=== PATIENT | female | born 1995 | race Caucasian/White ===

== ENCOUNTER → 2020-06-13 10:57 | Outpatient (BNVA) | payer MEDICAID, SELFPAY | PROVIDERS: Visit Provider Advanced Practice Midwife | DX: Z30.42 Encounter for surveillance of injectable contraceptive (principal) | CPT/HCPCS: 96372; 99211 ==

== ENCOUNTER 2020-06-21 11:05 | Outpatient (REF) | payer MEDICAID, SELFPAY ==
[2020-06-21 16:29] LABS: CT PCR NOT DETECTED (Not Detect.); NG PCR NOT DETECTED (Not Detect.)
[2020-06-22 11:19] LABS: BV Int Neg Control Negative (Negative); BV Int Pos Control Positive (Positive)
== END 2020-06-21 11:06 | disposition home or self-care (01) ==
LOC: HO.LAB 11:05
PROVIDERS: Visit Provider Advanced Practice Midwife
DX: A60.00 Herpesviral infection of urogenital system, unspecified (principal); Z20.2 Contact with and (suspected) exposure to infections with a predominantly sexual mode of transmission; Z11.3 Encounter for screening for infections with a predominantly sexual mode of transmission
CPT/HCPCS: 87480; 87491; 87510; 87591; 87660; 99212

== ENCOUNTER 2020-09-11 14:22 | Emergency (ER) | payer MEDICAID, SELFPAY ==
[2020-09-11 14:56] VITALS: BP 104/73; PULSE 90; RESP 18; TEMP 37.3; O2SAT 97; BMI 21.2
--- NOTE | 2020-09-11 14:58 | ED.GENADULT ---
HPI - General Adult General Chief complaint: Abdominal Pain Stated complaint: abd pain, vomiting Time Seen by Provider: 09/11/20 14:57 Source: patient Mode of arrival: ambulatory Limitations: no limitations History of Present Illness HPI narrative: 25 y/o female presenting with nausea, vomiting and dirrahea since yesterday. She also reports mild, intermittent epigastric pain that comes and goes. No fever, chills, bloody BM's, recent abx, recent food bourne illness exposure. No COVID exposure. MD complaint: nausea and vomiting. Onset (ago): day(s) (2) Location: abdomen Radiation: non-radiation Severity: moderate Quality: burning and aching Pain Consistency: intermittent and now resolved Exacerbating factors: eating Associated symptoms: loss of appetite Treatments prior to arrival: none Related Data Home Medications Medication Instructions Recorded Confirmed medroxyprogesterone 150 mg/mL 150 mg IM [id number] 06/21/20 06/21/20 intramuscular suspension Previous Rx's Medication Instructions Recorded valacyclovir 1 gram tablet 1,000 mg PO DAILY #30 tab 06/21/20 Allergies Allergy/AdvReac Type Severity Reaction Status Date / Time No Known Allergies Allergy Verified 09/11/20 14:55 [No Known Allergies*] seasonal, in spring Allergy Unknown sneezing Uncoded 09/11/20 14:55 Review of Systems Review of Systems: Constitutional: No Fever, No Chills Cardiovascular: No Chest Pain, No SOB Respiratory: No Cough, No Sputum Gastrointestinal: + Nausea, + Vomiting, + Diarrhea, + abdominal Pain, No Hematochezia, No Melena Genitourinary: No Dysuria, No Urinary Frequency, No Hematuria Musculoskeletal: No joint pain, No Myalgias Skin: No Skin Lesions, No rash Neuro: No Weakness, No Numbness, No Dizziness, No Headache Heme/Lymph: No Bruising, No Lymphadenopathy Endocrine: No Polyuria, No Polydipsia PMFSH Past Medical History Attestation statement: The following information was validated with the patient. Medical History Depression Seasonal allergies Surgical History No history of previous surgery Family History Family History Mother Breast cyst Maternal Grandmother Breast cancer Maternal Aunt Uterine cancer Social History Social History (Updated 06/21/20 @ 12:02 by THEODORE Rainey) Alcohol intake: never Smoking Status: Never smoker Advance Directives: No Advance Directives Information Provided: No Gender identity: female Physical Exam Vital Signs: Vital Signs: Last Vital Signs Temp 99.2 F 09/11/20 14:56 Pulse 90 09/11/20 14:56 Resp 18 09/11/20 14:56 BP 104/73 09/11/20 14:56 Pulse Ox 97 09/11/20 14:56 Body Mass Index 21.2 Appearance: Alert. Oriented X3. No acute distress. Eyes: normal inspection ENT: Pharynx normal. Neck: Normal inspection. Neck supple. CVS: Normal heart rate and rhythm. Respiratory: No respiratory distress. Abdomen: Soft with mild epigastric tenderness, nontender. +BS x4 Skin: Skin warm and dry. Normal skin color. Normal skin turgor. No rashes. Neuro: Oriented X 3. Non-focal, normal gait Course Course Course Narrative: Rapid medial assessment upon arrival to the ER - 25 y/o female presenting with 2 days of intermittent 8/10 epigastric pain, N/V and watery diarrhea, thinks it may be food related. ?COVID exposure to a co-worker but no other symptoms. Unknown LMP, missed her Depo shot. VSS, appears well. No pain at this time. Will check labs, Upreg and UA. Management and dispo per primary provider in the ED. Reevaluation(s) Reevaluation #1: Patient eloped prior to having lab workup performed. Discharge Plan Discharge Clinical Impression: Gastroenteritis Patient Disposition: Elopement Prescriptions: No Action medroxyprogesterone [Depo-Provera] 150 mg/mL suspension 150 mg IM [id number] RF: 0 valacyclovir 1 gram tablet 1,000 mg PO DAILY Qty: 30 RF: 6
== END 2020-09-11 14:57 | disposition left against medical advice (07) ==
PROVIDERS: Emergency Provider Emergency Medicine
DX: K52.9 Noninfective gastroenteritis and colitis, unspecified (principal)
CPT/HCPCS: 99283

== ENCOUNTER 2020-11-10 09:47 | Outpatient (REF) | payer MEDICAID, SELFPAY ==
[2020-11-11 09:21] LABS: CT PCR NOT DETECTED (Not Detect.); NG PCR NOT DETECTED (Not Detect.)
[2020-11-11 11:30] LABS: BV Int Neg Control Negative (Negative); BV Int Pos Control Positive (Positive)
== END 2020-11-10 09:48 | disposition home or self-care (01) ==
LOC: HO.LAB 09:47
PROVIDERS: Visit Provider Advanced Practice Midwife
DX: Z01.419 Encounter for gynecological examination (general) (routine) without abnormal findings (principal); R10.2 Pelvic and perineal pain; A60.00 Herpesviral infection of urogenital system, unspecified; Z20.2 Contact with and (suspected) exposure to infections with a predominantly sexual mode of transmission; F32.9 Major depressive disorder, single episode, unspecified; J30.2 Other seasonal allergic rhinitis; Z79.899 Other long term (current) drug therapy
CPT/HCPCS: 87480; 87491; 87510; 87591; 87660; 88142

== ENCOUNTER 2020-11-29 13:58 | Outpatient (REF) | payer MEDICAID, SELFPAY ==
--- NOTE | ~2020-11-29 | US_ITS ---
EXAMINATION:US pelvic complete, US transvaginal CLINICAL INFORMATION: Reason for Exam R10.2 - Pelvic and perineal pain COMPARISON: No priors available. LMP: 2 weeks ago FINDINGS: UTERUS: The uterus is anteverted. Size: 7.3 x 3.9 x 4.8 cm. Uterine mass: Intramural uterine echogenic structure probably calcified tiny fibroid 2 x 3 x 2 mm. Cervix: There is nabothian cysts otherwise Grossly unremarkable. Endometrium: No ultrasound evidence of endometrial lesion. endometrial thickness measures 0.3 cm. ADNEXA: Normal Right ovary: Normal in size. There are multiple follicles. Left ovary: Normal in size. There are multiple follicles. Doppler exam: Normal Doppler flow identified in both ovaries. FREE FLUID: Trace amount of free fluid. OTHER FINDINGS: None US/US transvaginal IMPRESSION: Small 3 mm echogenic structure within the myometrium probably a tiny calcified fibroid or calcification probably of no clinical significance. Ultrasound otherwise is normal.
--- NOTE | ~2020-11-29 | US_ITS ---
EXAMINATION:US pelvic complete, US transvaginal CLINICAL INFORMATION: Reason for Exam R10.2 - Pelvic and perineal pain COMPARISON: No priors available. LMP: 2 weeks ago FINDINGS: UTERUS: The uterus is anteverted. Size: 7.3 x 3.9 x 4.8 cm. Uterine mass: Intramural uterine echogenic structure probably calcified tiny fibroid 2 x 3 x 2 mm. Cervix: There is nabothian cysts otherwise Grossly unremarkable. Endometrium: No ultrasound evidence of endometrial lesion. endometrial thickness measures 0.3 cm. ADNEXA: Normal Right ovary: Normal in size. There are multiple follicles. Left ovary: Normal in size. There are multiple follicles. Doppler exam: Normal Doppler flow identified in both ovaries. FREE FLUID: Trace amount of free fluid. OTHER FINDINGS: None US/US pelvic complete IMPRESSION: Small 3 mm echogenic structure within the myometrium probably a tiny calcified fibroid or calcification probably of no clinical significance. Ultrasound otherwise is normal.
== END 2020-11-29 13:59 | disposition home or self-care (01) ==
LOC: HO.US 13:58
PROVIDERS: Visit Provider Advanced Practice Midwife
DX: R10.2 Pelvic and perineal pain (principal); A60.00 Herpesviral infection of urogenital system, unspecified; Z20.2 Contact with and (suspected) exposure to infections with a predominantly sexual mode of transmission
CPT/HCPCS: 76830; 76856

== ENCOUNTER → 2020-12-06 10:11 | Outpatient (BNVA) | payer MEDICAID, SELFPAY | PROVIDERS: Visit Provider Advanced Practice Midwife ==

== ENCOUNTER → 2020-12-08 13:02 | Outpatient (BNVA) | payer MEDICAID, SELFPAY | PROVIDERS: Visit Provider Advanced Practice Midwife ==

== ENCOUNTER 2020-12-20 12:48 | Emergency (ER) | payer MEDICAID, SELFPAY ==
[2020-12-20 13:29] VITALS: BP 107/66; PULSE 73; RESP 16; TEMP 36.3; O2SAT 97; BMI 21.6
[2020-12-20 13:31] VITALS: BP 107/66; PULSE 71; RESP 16; TEMP 36.3; O2SAT 99; BMI 21.2
--- NOTE | 2020-12-20 14:29 | ED.EAR ---
HPI - Ear Problem General Chief complaint: Ear Problems Stated complaint: EAR ACHE Time Seen by Provider: 12/20/20 14:23 Source: patient Mode of arrival: ambulatory Limitations: no limitations History of Present Illness MD Complaint: ear pain and ear discharge Location: right ear Duration: constant Severity: moderate Relieving factors: nothing Exacerbating factors: nothing Discharge from ear: yes - clear Treatment prior to arrival: none Related Data Previous Rx's Medication Instructions Recorded levonorgestrel 1.5 mg tablet 1.5 mg PO ONCE PRN #1 tab 11/10/20 medroxyprogesterone 150 mg/mL 150 mg IM Q12W #1 ml 11/10/20 intramuscular suspension valacyclovir 1 gram tablet 1,000 mg PO DAILY #30 tab 11/10/20 ciprofloxacin HCl [Cipro] 500 mg PO BID 14 Days #28 tab 12/20/20 ciprofloxacin-hydrocortisone 3 drp OTIC (EARS) BID 7 Days #10 ml 12/20/20 [Cipro HC] Allergies Allergy/AdvReac Type Severity Reaction Status Date / Time No Known Allergies Allergy Verified 12/06/20 11:24 [No Known Allergies*] seasonal, in spring Allergy Unknown sneezing Uncoded 12/06/20 11:24 Review of Systems Review of Systems: Constitutional : No Weight loss, No Fever, No Chills, No Night Sweats, No Fatigue, No Malaise ENT/Mouth : + Ear pain/drainage, No Hearing loss, No Nasal Congestion, No Sinus Pain, No Hoarseness, No sore throat, No Rhinorrhea, No Swallowing Difficulty Eyes: No Eye Pain, No Swelling, No Redness, No Foreign Body, No Discharge, No Vision Changes Cardiovascular : No SOB, no Dyspnea on Exertion, No Orthopnea, No Edema, No extremity swelling, No Palpitations Respiratory : No Cough, No Sputum, No Wheezing, No Dyspnea Gastrointestinal : No Nausea, No Vomiting, No Diarrhea, No abdominal Pain, No Hematochezia, No Melena Genitourinary : No irregular bleeding, No Dysuria, No Urinary Frequency, No Hematuria, No Urinary Incontinence, No Urgency, No Flank Pain, No Urinary Flow Changes, No Hesitancy Musculoskeletal : No joint pain, No Myalgias, No Joint Swelling Skin : No Skin Lesions, No rash Neuro : No Weakness, No Numbness, No Paresthesias, No Loss of Consciousness, No Dizziness, No Headache Psych : No Anxiety/Panic, No Depression, No SI/HI/AH/VH Heme/Lymph: No Bruising, No Bleeding,No Lymphadenopathy Endocrine : No Polyuria, No Polydipsia, No Temperature Intolerance Yes all other systems are reviewed and are negative [facility] Past Medical History Attestation statement: The following information was validated with the patient. Medical History Depression Seasonal allergies Surgical History No history of previous surgery Family History Family History Mother Breast cyst Maternal Grandmother Breast cancer Maternal Aunt Uterine cancer Social History Social History Alcohol intake: never Smoking Status: Never smoker Advance Directives: Yes Advance Directives Information Provided: Yes Advance Directives on File: No Gender identity: female Physical Exam Vital Signs: Vital Signs: Last Vital Signs Temp 97.4 F 12/20/20 13:31 Pulse 71 12/20/20 13:31 Resp 16 12/20/20 13:31 BP 107/66 12/20/20 13:31 Pulse Ox 99 12/20/20 13:31 Body Mass Index 21.2 vital signs have been reviewed as normal and appeared to be correct. Blood pressure normal. Heart rate normal. Respiration rate normal. Temperature normal. Oxygen saturation normal. Appearance: Alert. Oriented X3. No acute distress. Head: Normal external exam. Normocephalic. Atraumatic. No Love signs noted. No raccoon eyes noted Eyes: PERRLA. EOMI. Conjunctiva and sclera normal. Eyelids normal. ENT: Left external ear canal and tympanic membrane within normal limits. Right tympanic membrane erythematous and bulging consistent with otitis media. Patient with tenderness to palpation to the tragus and the pinna of the right ear canal. Pharynx normal. Uvula midline. Moist mucous membranes. No trismus noted. No drooling noted. No muffled voice noted. Neck: Normal inspection. Neck supple. FROM. No adenopathy. Thyroid Normal. No meningeal signs. No neck mass noted. CVS: Normal heart rate and rhythm. Heart sound normal. No murmurs noted. Pulses normal throughout. Respiratory: No respiratory distress. Painless inspiration. Breath sounds normal. No wheezes/rales/rhonchi noted. Chest nontender. No accessory muscle usage noted or decreased air movement noted. Abdomen: Soft and nontender. Bowel sounds normal in all 4 quadrants. No distention noted. No organomegaly noted. No visible injury noted. Back: No CVA tenderness. Full range of motion noted. Skin: Skin warm and dry. Normal skin color. Normal skin turgor. No rashes/lesions/lacerations noted. Extremities: No lower extremity edema. Extremities exhibit normal range of motion. Extremities nontender. Neuro: Oriented X 3. No motor deficit. No sensory deficit. Reflexes normal. MDM - Ear Medical Records Attestation: I reviewed the patient's medical records. Discharge Plan Discharge Clinical Impression: Otitis media, Otitis externa Patient Disposition: Home, Self-Care Instructions: Serous Otitis Media (ED), Otitis Externa (ED) Prescriptions: New ciprofloxacin HCl [Cipro] 500 mg tablet 500 mg PO BID 14 Days Qty: 28 RF: 0 Cipro HC 0.2-1 % drops,suspension 3 drp otic (ears) BID 7 Days Qty: 10 RF: 0 No Action medroxyprogesterone [Depo-Provera] 150 mg/mL suspension 150 mg IM Q12W Qty: 1 RF: 6 levonorgestrel [Plan B One-Step] 1.5 mg tablet 1.5 mg PO ONCE PRN (Reason: after unprptected intercourse) Qty: 1 RF: 5 valacyclovir 1 gram tablet 1,000 mg PO DAILY Qty: 30 RF: 6 Referrals: Physician,None [Primary Care Provider] - 2 days (your pcp) Stand Alone Forms: Work/School Release Print Language: Romanian
== END 2020-12-20 14:50 | disposition home or self-care (01) ==
PROVIDERS: Emergency Provider Emergency Medicine Emergency Medical Services
DX: H66.91 Otitis media, unspecified, right ear (principal); H60.91 Unspecified otitis externa, right ear; H92.01 Otalgia, right ear
CPT/HCPCS: 99283

== ENCOUNTER 2021-01-30 08:04 | Outpatient (REF) | payer MEDICAID, SELFPAY ==
[2021-01-30 14:03] LABS: CT PCR NOT DETECTED (Not Detect.); NG PCR NOT DETECTED (Not Detect.)
[2021-01-31 09:10] LABS: BV Int Neg Control Negative (Negative); BV Int Pos Control Positive (Positive)
== END 2021-01-30 08:05 | disposition home or self-care (01) ==
LOC: HO.LAB 08:04
PROVIDERS: Visit Provider Advanced Practice Midwife
DX: N76.0 Acute vaginitis (principal); Z20.2 Contact with and (suspected) exposure to infections with a predominantly sexual mode of transmission
CPT/HCPCS: 81025; 87480; 87491; 87510; 87591; 87660; 99212

== ENCOUNTER → 2021-05-02 11:09 | Outpatient (BNVA) | payer MEDICAID, SELFPAY | PROVIDERS: Visit Provider Advanced Practice Midwife | DX: Z32.02 Encounter for pregnancy test, result negative (principal); Z30.09 Encounter for other general counseling and advice on contraception; N91.2 Amenorrhea, unspecified | CPT/HCPCS: 81025; 99212 ==

== ENCOUNTER → 2021-05-16 10:10 | Outpatient (BNVA) | payer MEDICAID, SELFPAY | PROVIDERS: Visit Provider Advanced Practice Midwife | DX: Z30.09 Encounter for other general counseling and advice on contraception (principal); Z30.9 Encounter for contraceptive management, unspecified; Z32.02 Encounter for pregnancy test, result negative | CPT/HCPCS: 81025; 96372; 99211 ==

== ENCOUNTER → 2021-08-08 11:05 | Outpatient (BNVA) | payer MEDICAID, SELFPAY | PROVIDERS: Visit Provider Advanced Practice Midwife | DX: Z30.9 Encounter for contraceptive management, unspecified (principal) | CPT/HCPCS: 96372; 99211 ==

== ENCOUNTER → 2021-10-24 13:16 | Outpatient (BNVA) | payer MEDICAID, SELFPAY | PROVIDERS: Visit Provider Advanced Practice Midwife | DX: Z30.42 Encounter for surveillance of injectable contraceptive (principal) | CPT/HCPCS: 96372; 99211 ==

== ENCOUNTER 2021-10-25 11:22 | Outpatient (REF) | payer MEDICAID, SELFPAY ==
[2021-10-25 15:32] LABS: CT PCR NOT DETECTED (Not Detect.); NG PCR NOT DETECTED (Not Detect.)
[2021-10-26 09:42] LABS: BV Int Neg Control Negative (Negative); BV Int Pos Control Positive (Positive)
== END 2021-10-25 11:23 | disposition home or self-care (01) ==
LOC: HO.LAB 11:22
PROVIDERS: Visit Provider Obstetrics & Gynecology
DX: N76.0 Acute vaginitis (principal); B96.89 Other specified bacterial agents as the cause of diseases classified elsewhere
CPT/HCPCS: 87480; 87491; 87510; 87591; 87660; 99212

== ENCOUNTER 2021-11-02 09:26 | Emergency (ER) | payer MEDICAID, SELFPAY ==
[2021-11-02 09:30] VITALS: BP 122/78; PULSE 90; O2SAT 98
[2021-11-02 09:35] VITALS: BP 100/72; PULSE 95; RESP 17; TEMP 36.7; O2SAT 97; BMI 23.8
--- NOTE | 2021-11-02 10:24 | ECG_ITS ---
Test Reason : anxiety Blood Pressure : / mmHG Vent. Rate : 075 BPM Atrial Rate : 075 BPM P-R Int : 174 ms QRS Dur : 090 ms QT Int : 358 ms P-R-T Axes : 062 052 043 degrees QTc Int : 399 ms Normal sinus rhythm Normal ECG When compared with ECG of 15-JAN-2019 20:54, No significant change was found Referred By: William Hill Electronically Signed By:DI MANCILLA MD
--- NOTE | 2021-11-02 10:25 | ED_ITS ---
HPI - General Adult General Chief complaint: Anxiety Stated complaint: shortness of breath Time Seen by Provider: 11/02/21 10:20 History of Present Illness HPI narrative: Patient complains of a resolved episode of feeling faint, tingling in fingers and feet, who breathing deeply and feeling chest tightness while at a meeting at work She did not faint she never had chest pain she is completely back to normal now and has no dizziness or shortness of breath She has had similar episodes in past related to anxiety and she does say that she is frequently anxious Related Data Previous Rx's Medication Instructions Recorded medroxyprogesterone 150 mg/mL 150 mg IM Q12W #1 ml 11/10/20 intramuscular suspension (Depo-Provera) valacyclovir 1 gram tablet 1,000 mg PO DAILY #30 tab 11/10/20 metronidazole 500 mg tablet 500 mg PO BID 7 Days #14 tab 10/25/21 Allergies Allergy/AdvReac Type Severity Reaction Status Date / Time seasonal, in spring Allergy Unknown sneezing Uncoded 10/25/21 11:32 Review of Systems Review of Systems: Positive for resolved episode of hyperventilation, tingling in fingers and toes, feeling faint and dizzy Negatives are no fever no chills no fainting no headache no stiff neck no chest pain no abdominal pain no nausea or vomiting no diarrhea no skin rash no loss of muscle strength no loss of sensation Yes all other systems are reviewed and are negative PMFSH Past Medical History Source: nursing notes reviewed Medical History Depression Seasonal allergies Surgical History No history of previous surgery Family History Family History Mother Breast cyst Maternal Grandmother Breast cancer Maternal Aunt Uterine cancer Social History Social History Alcohol intake: never Advance Directives: No Advance Directives Information Provided: No Patient : No Gender identity: Female Physical Exam ED Vital Signs: Vital Signs - 24 hr 11/02/21 09:35 11/02/21 11:04 Temperature 98.0 F Pulse Rate 95 105 H Respiratory Rate 17 17 Blood Pressure 100/72 Pulse Oximetry 97 98 BMI result Body Mass Index 23.8 General appearance no distress comfortable relaxed cooperative Head is normocephalic atraumatic Eyes pupils equal round reactive to light Extraocular motions are intact The pharynx is clear mucous membranes moist The neck is supple Chest clear to auscultation bilateral Heart no murmur Abdomen soft nontender Extremities full range of motion x4 no leg swelling no calf tenderness Neuro no gross deficits, gait and balance are normal interaction both compreh ension expression is clear and normal Course Course Course Narrative: EKG was done which which showed a normal sinus rhythm no acute ST changes no ischemic changes no arrhythmia, intervals were normal and QT was no test was negative Well-appearing patient who is now asymptomatic but has periodic anxiety , but this her 1st episode of hyperventilation As this was a 1 time episode and anxiety is not impairing her quality of life and she is not suicidal or depressed I did not start any medication, I did advise her if she gets another hyperventilation episodes use paper bag and she will follow with her doctor Medical Decision Making Lab Data Labs: Lab Results 11/02/21 Range/Units 10:34 Urine Test NEGATIVE (NEGATIVE) Discharge Plan Discharge Clinical Impression: Anxiety, Hyperventilation Patient Disposition: Home, Self-Care Instructions: Hyperventilation (ED) Additional Instructions: Your EKG was normal, test was negative The episode was most likely an episode of hyperventilation from an anxiety attack If it happens again try breathing into a paper bag which often times helps control the symptoms of hyperventilation if you ever feel dizzy when her standing up it is always a good idea to lay down and let the blood go back to her head Return any time any worse condition or any concerns Follow with primary doctor Prescriptions: No Action medroxyprogesterone [Depo-Provera] 150 mg/mL suspension 150 mg IM Q12W Qty: 1 6RF valacyclovir 1 gram tablet 1,000 mg PO DAILY Qty: 30 6RF metronidazole 500 mg tablet 500 mg PO BID 7 Days Qty: 14 0RF Stand Alone Forms: Work/School Release Interventions: ED Discharge Assessment Last Done: 11/02/21 11:31 Discharge Date/Time: 11/02/21 11:37
[2021-11-02 10:57] LABS: UPreg QC Valid YES; Urine Pregnancy NEGATIVE (NEGATIVE)
[2021-11-02 11:04] VITALS: PULSE 105; RESP 17; O2SAT 98
== END 2021-11-02 11:37 | disposition home or self-care (01) ==
PROVIDERS: Physician Assistant Medical; Emergency Provider Emergency Medicine; PCP Nurse Practitioner Primary Care
DX: F41.9 Anxiety disorder, unspecified (principal); R06.4 Hyperventilation
CPT/HCPCS: 81025; 93005; 99283; 99284

== ENCOUNTER → 2022-01-18 11:06 | Outpatient (BNVA) | payer MEDICAID, SELFPAY | PROVIDERS: Visit Provider Obstetrics & Gynecology | DX: Z30.42 Encounter for surveillance of injectable contraceptive (principal) | CPT/HCPCS: 96372; 99211 ==

== ENCOUNTER 2022-02-28 08:39 | Outpatient (REF) | payer MEDICAID, SELFPAY ==
[2022-02-28 14:42] LABS: CT PCR NOT DETECTED (Not Detect.); NG PCR NOT DETECTED (Not Detect.)
== END 2022-02-28 08:40 | disposition home or self-care (01) ==
LOC: HO.LAB 08:39
PROVIDERS: Visit Provider Obstetrics & Gynecology
DX: Z11.3 Encounter for screening for infections with a predominantly sexual mode of transmission (principal)
CPT/HCPCS: 87491; 87591

== ENCOUNTER → 2022-04-12 12:35 | Outpatient (BNVA) | payer MEDICAID, SELFPAY | PROVIDERS: Visit Provider Obstetrics & Gynecology | DX: Z30.9 Encounter for contraceptive management, unspecified (principal) | CPT/HCPCS: 96372; 99211 ==

== ENCOUNTER → 2022-06-28 13:14 | Outpatient (BNVA) | payer MEDICAID, SELFPAY | PROVIDERS: Visit Provider Obstetrics & Gynecology | DX: Z30.42 Encounter for surveillance of injectable contraceptive (principal) | CPT/HCPCS: 96372 ==

== ENCOUNTER → 2022-07-31 13:26 | Outpatient (BNVA) | payer MEDICAID, SELFPAY | PROVIDERS: Visit Provider Obstetrics & Gynecology | DX: Z30.09 Encounter for other general counseling and advice on contraception (principal) | CPT/HCPCS: 99212 ==

== ENCOUNTER → 2022-09-24 12:57 | Outpatient (BNVA) | payer MEDICAID, SELFPAY | PROVIDERS: Visit Provider Advanced Practice Midwife | DX: Z30.42 Encounter for surveillance of injectable contraceptive (principal) | CPT/HCPCS: 96372; 99211 ==

== ENCOUNTER 2022-11-08 09:59 | Outpatient (REF) | payer MEDICAID, SELFPAY ==
[2022-11-08 17:00] LABS: CT PCR NOT DETECTED (Not Detect.); NG PCR NOT DETECTED (Not Detect.)
[2022-11-09 12:53] LABS: BV Int Neg Control Negative (Negative); BV Int Pos Control Positive (Positive)
== END 2022-11-08 10:00 | disposition home or self-care (01) ==
LOC: HO.LNP 09:59
PROVIDERS: Visit Provider Advanced Practice Midwife
DX: N76.0 Acute vaginitis (principal); B96.89 Other specified bacterial agents as the cause of diseases classified elsewhere; R10.2 Pelvic and perineal pain; Z20.2 Contact with and (suspected) exposure to infections with a predominantly sexual mode of transmission; N94.10 Unspecified dyspareunia
CPT/HCPCS: 0353U; 87480; 87510; 87660; 99212

== ENCOUNTER → 2022-12-10 12:20 | Outpatient (BNVA) | payer MEDICAID, SELFPAY | PROVIDERS: Visit Provider Advanced Practice Midwife | DX: Z30.42 Encounter for surveillance of injectable contraceptive (principal) | CPT/HCPCS: 96372; 99211 ==

== ENCOUNTER 2023-03-03 12:33 | Outpatient (AMB) | payer MEDICAID, SELFPAY ==
[2023-03-03 12:52] VITALS: BMI 25.2
--- NOTE | 2023-03-03 12:52 | AM.OFFVISNUR ---
Intake Vital Signs 03/03/23 12:52 Height 5 ft 3 in Weight 64.467 kg BMI 25.2 Intake Visit Reasons: DEPO Allergies seasonal, in spring Allergy (Unknown, Uncoded 11/08/22 10:14) sneezing Nursing Note tony is here today for her scheduled Depo_provera inj. She has her annual scheduled for tomorrow. Pt denies any problems. Follow up in 12 wks for Depo-Provera inj. Office Procedures Depo Questionnaire If YES to any of the following questions, please consult a provider. Date of last injection: 12/10/22 Date of last gynecology exam: 02/28/22 Menstrual pattern since last injection has been: Not Applicable Irregular bleeding?: Not Applicable Breast lumps or other breast changes?: No Changes in weight or appetite?: No Depression or changes in mood?: No Abnormal hair growth or loss?: No Skin problems (rash, acne, discoloration)?: No Pain at the injection site?: No Headaches?: No Nervousness?: No Abdominal pain or cramping?: No Dizziness or nausea?: No Fatigue or weakness?: No Decrease in sexual drive?: No Chest pain or shortness of breath?: No Swelling in arms or legs?: No Form completed by?: Faiza bearden LPN Office Meds Depo-Provera Performing Provider: Brianne Samson CNM Administered by: Meghna Bearden LPN on 03/03/23 12:53 Dose Route Admin Location Lot Number Expiration Date NDC Potato Inspector 150 mg IM left deltoid [id number] 05/24/25 52569-091-53 [facility] Coding Level of Care Code Established Pt Est Pt Level 1 (59998) Patient Type Established History Problem Focused Exam Problem Focused Medical Decision Making Straight Forward Diagnoses Time Spent (min) 15 Assessment & Plan Assessment & Plan Orders: Orders AMB Medroxyprogesterone Injection Patient Supplied Today Z30.42 - Encounter for surveillance of injectable contraceptive
== END 2023-03-03 12:51 | disposition home or self-care (01) ==
LOC: HO.HWS 12:33
PROVIDERS: Visit Provider Advanced Practice Midwife
DX: Z30.42 Encounter for surveillance of injectable contraceptive (principal)
CPT/HCPCS: J1050

== ENCOUNTER → 2023-03-03 12:33 | Outpatient (BNVA) | payer MEDICAID, SELFPAY | PROVIDERS: Visit Provider Advanced Practice Midwife | DX: Z30.42 Encounter for surveillance of injectable contraceptive (principal) | CPT/HCPCS: 96372; 99211 ==

== ENCOUNTER 2023-03-04 07:56 | Outpatient (AMB) | payer MEDICAID, SELFPAY ==
--- NOTE | 2023-03-04 08:17 | A.OFFVIS_ITS ---
Intake Vital Signs 03/04/23 08:20 Height 5 ft 3 in Weight 140 lb BMI 24.8 BP 108/68 Intake Visit Reasons: Annual Intake Note: c/o vaginitis Air Quality Instrument Specialist Required: No Information Interpreted: non-clinical & clinical Neck Band Maker: Neck Band Maker Present Accompanied by: Self / Same As Patient Allergies seasonal, in spring Allergy (Unknown, Uncoded 03/04/23 08:21) sneezing Is last menstrual period known: No HPI HPI Comments History of Present Illness Details Presenting for annual exam. No complaints. Last Pap was negative in 11/12 [facility] Medical History Depression Seasonal allergies Surgical History No history of previous surgery Family History Mother Breast cyst Maternal Grandmother Breast cancer Maternal Aunt Uterine cancer Social History Household Members: Children Housing: Apartment Alcohol intake: never Patient Tobacco Use Status: Never used Tobacco Current occupational status: employed Current occupation: [employer] Sexually active: Yes Sexual orientation: Straight/Heterosexual Gender identity: Female Female Reproductive History Menstrual Age of Menarche: 15 control method: progesterone injection Total pregnancies: 2 Full term: 2 Number of Living Children: 2 Date of last pap smear: 11/13/20 Review of Systems Const All systems reviewed & are unremarkable except as noted in HPI and below Card Reports as per HPI Resp Reports as per HPI GI Reports as per HPI and Reports no additional complaints Reports as per HPI Physical Exam Vital Signs: Last Vital Signs BP 108/68 03/04/23 08:20 BMI result Body Mass Index 24.8 Const General: cooperative, healthy appearing and comfortable Chest Chest palpation & inspection: normal inspection of the chest and normal palpation of entire chest wall Breast/axilla inspection: normal inspection of the breasts and normal inspection of the axillae Breast/axilla palpation: normal palpation of the breasts, normal palpation of the axillae and no axillary lymphadenopathy Resp Effort & Inspection: normal respiratory effort Auscultation: clear to auscultation bilaterally Percussion: percussion normal Cardio Palpation: normal PMI Rate: regular rate Rhythm: regular rhythm Heart sounds: no murmurs and no rubs Peripheral pulses: Peripheral pulses 2+ throughout GI Inspection: Yes normal to inspection Palpation (GI): Soft to palpation, nontender, no guarding, not rigid and No hepatosplenomegaly present Percussion: Yes normal to percussion Auscultation: normal bowel sounds Rectal Exam - Female: deferred General: Yes bladder normal to palpation External Female Exam: No lesion Speculum Exam - Vagina: normal appearance of the vagina, normal palpation, normal vaginal discharge and not erythematous Speculum Exam - Cervix: normal appearance of the cervix and normal palpation Bimanual exam- vagina & uterus: normal bimanual exam, normal palpation, uterine size normal, bladder normal to palpation, consistency normal and normal palpation Bimanual Exam- Adnexa, other: normal adnexae, no masses and no tenderness Assessment & Plan Assessment & Plan (1) Well woman exam with routine gynecological exam: Code(s): Z01.419 - Encounter for gynecological examination (general) (routine) without abnormal findings Plan: Pap smear not indicated this year. Counseled the patient about the recommended dietary allowance of 1000 mg of Calcium & 600 IU of vitamin D. The patient was instructed to perform monthly self-breast exams , to call for any changes in menstrual patterns and to schedule an annual exam in a year; all questions answered and the patient verbalized understanding. Coding Level of Care Code Est Pt Prev Care 18-39y(64434) Diagnoses Well woman exam with routine gynecological exam Z01.419
[2023-03-04 08:20] VITALS: BP 108/68; BMI 24.8
== END 2023-03-04 08:32 | disposition home or self-care (01) ==
LOC: HO.HWS 07:56
PROVIDERS: Visit Provider Obstetrics & Gynecology
DX: Z01.419 Encounter for gynecological examination (general) (routine) without abnormal findings (principal)
CPT/HCPCS: 99395

== ENCOUNTER → 2023-03-04 07:56 | Outpatient (BNVA) | payer MEDICAID, SELFPAY | PROVIDERS: Visit Provider Obstetrics & Gynecology ==

== ENCOUNTER 2023-03-06 19:25 | Outpatient (REF) | payer MEDICAID, SELFPAY ==
[2023-03-06 20:12] LABS: Influenza A PCR NEGATIVE (Negative); Influenza B PCR NEGATIVE (Negative); Resp Syncy Virus RNA Qual PCR NEGATIVE (Negative); SARS COV2 PCR INHOUSE NEGATIVE (Negative)
== END 2023-03-06 19:26 | disposition home or self-care (01) ==
LOC: HO.HHCLNP 19:25
PROVIDERS: Visit Provider Family Medicine
DX: J06.9 Acute upper respiratory infection, unspecified (principal); Z20.822 Contact with and (suspected) exposure to COVID-19
CPT/HCPCS: 0241U; 87070

== ENCOUNTER 2023-05-02 12:40 | Outpatient (AMB) | payer MEDICAID, SELFPAY ==
[2023-05-02 12:49] VITALS: BP 120/66; BMI 25.5
--- NOTE | 2023-05-02 12:49 | A.OFFVIS_ITS ---
Intake Vital Signs 3 05/02/23 12:49 Height 5 ft 3 in Weight 144 lb BMI 25.5 BP 120/66 Intake Visit Reasons: Vaginal Cysts Intake Note: cyst on upper labia Machine Cementer Required: No Information Interpreted: non-clinical & clinical Distribution Collection Operator: Distribution Collection Operator Present (Malka) Accompanied by: Daughter Allergies seasonal, in spring Allergy (Unknown, Uncoded 05/02/23 12:52) sneezing Medication List - Last Reconciled 05/02/23 by Jaqueline Montez CNM medroxyprogesterone (Depo-Provera) 150 mg IM Q12W 12 weeks Is last menstrual period known: No (Depo) Post menopausal: No HPI Vaginal Cysts 2 HPI0 Details Patient is here because she has a recurring problem with a follicular cyst and her mons pubis but the 1 of most concern is she has of the inflamed clitoris. It is not where there is a hair follicle. She had this problem when she was 16 years old and at that time it did need to be lanced. Since then she has had numbness at that plate site on her clitoris and diminished sensation although it the swelling is painful. It had not occurred for a long time until she was on vacation in [place] about a month ago and it became so swollen and painful that she had to buy long skirts to wear and not wear underwear and pants it got to be about golf ball-sized by her description and when she put warm soaks on it finally it popped and got 100% better this 1 just started recently and she is afraid it is going to get as bad. She said that she was told that if it ever happened again she would have to have it lanced again so she wanted to get a right on it. 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 Patient has other scars from previously healed folliculitis lesions. Patient says she does not shave generally but she shaved before her trip to [place] and regretted it immediately. Her clitoris is swollen and appears very slightly inflamed more towards the right side of the clitoris than central or left there is evidence of a poor that may have opened up previously there is no active exudate it is not extremely tender but it is slightly tender to the patient it is swollen with an oval- shaped approximately 1/2 by 1 cm. Female genitals images: 2 1. Folliculitis on mons pubis folliculitis on mons pubis 2. Cystic swelling on clitoris, slightly inflamed. Assessment & Plan Assessment & Plan (1) Folliculitis: Code(s): L73.9 - Follicular disorder, unspecified (2) Inflamed sebaceous cyst: Code(s): L72.3 - Sebaceous cyst (3) Clitoral irritation: Code(s): N90.89 - Other specified noninflammatory disorders of vulva and perineum Plan Discussed that for both areas I would recommend using warm soaks or warm washcloth reapplied to area -Just refresh the warm water. I showed her the clitoral lesion with the mirror we will both looked very carefully to wear it may have popped before but I do not and recommend squeezing it and night this point it would not benefit from any kind of Ronceverte or invasive action. It may come to that but it would be much better to try and pre vent that situation because the clitoris is such a delicate structure with nervous ennervation and blood supply as well that. gross Lancing would be more traumatic to the delicate tissue structure than would be figueroa. I recommend repeating the warm soaks as much as is possible in the next couple of days to allow it to come to its own head. Avoid squeezing.. If it becomes reddened hot much more swollen and evidence is infection she may need to seek urgent care and may need antibiotics I would not recommend them at this point. She has an appointment next month for her Depo-Provera and pascual believes she has sufficient refills. Coding Level of Care Code Est Pt Level 3 (97289) Diagnoses Folliculitis L73.9 Inflamed sebaceous cyst L72.3 Clitoral irritation N90.89
== END 2023-05-02 13:36 | disposition home or self-care (01) ==
PROVIDERS: Visit Provider Advanced Practice Midwife
DX: L73.9 Follicular disorder, unspecified (principal); L72.3 Sebaceous cyst; N90.89 Other specified noninflammatory disorders of vulva and perineum
CPT/HCPCS: 99213

== ENCOUNTER → 2023-05-02 12:40 | Outpatient (BNVA) | payer MEDICAID, SELFPAY | PROVIDERS: Visit Provider Advanced Practice Midwife | DX: L73.9 Follicular disorder, unspecified (principal); L72.3 Sebaceous cyst; N90.89 Other specified noninflammatory disorders of vulva and perineum | CPT/HCPCS: 99212 ==

== ENCOUNTER 2023-05-05 09:10 | Outpatient (REF) | payer MEDICAID, SELFPAY ==
[2023-05-07 21:49] LABS: TS Negative Control Passed; TS Panel A 0; TS Panel B 2; TS Positive Control Passed; TSpotTB Negative (Negative)
== END 2023-05-05 09:11 | disposition home or self-care (01) ==
LOC: HO.HHCL 09:10
PROVIDERS: Visit Provider Nurse Practitioner Primary Care
DX: Z11.1 Encounter for screening for respiratory tuberculosis (principal)
CPT/HCPCS: 36415; 86481

== ENCOUNTER 2023-05-29 15:08 | Outpatient (AMB) | payer MEDICAID, SELFPAY ==
[2023-05-29 15:26] VITALS: BMI 25.7
--- NOTE | 2023-05-29 15:26 | AM.OFFVISNUR ---
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 No c/o. Pt tolerated injection well. She will schedule her next injection for 12 weeks out. Pt verbalizes understanding and agrees with plan. No further questions. Office Procedures Depo Questionnaire If YES to any of the following questions, please consult a provider. Date of last injection: 03/03/23 Date of last gynecology exam: 02/28/22 Menstrual pattern since last injection has been: Not Applicable Irregular bleeding?: No Breast lumps or other breast changes?: No Changes in weight or appetite?: No Depression or changes in mood?: No Abnormal hair growth or loss?: No Skin problems (rash, acne, discoloration)?: No Pain at the injection site?: No Headaches?: No Nervousness?: No Abdominal pain or cramping?: No Dizziness or nausea?: No Fatigue or weakness?: No Decrease in sexual drive?: No Chest pain or shortness of breath?: No Swelling in arms or legs?: No Form completed by?: Omaira Vines RN Office Meds Depo-Provera 150 mg/mL intramuscular syringe Performing Provider: Altaf Mckenzie MD Performing Location: [facility] [place] [facility] Administered by: Omaira Vines on 05/29/23 15:28 Dose Route Admin Location Dispensed Lot Number Expiration Date [facility] Cooler Deliverer 150 mg IM left deltoid 1 mL [id number] 01/22/25 03771-398-03 [facility] Coding Level of Care Code Established Pt Est Pt Level 1 (37451) Patient Type Established History Problem Focused Medical Decision Making Straight Forward Time Spent (min) 12 Assessment & Plan Assessment & Plan Orders: Orders AMB Medroxyprogesterone Injection Patient Supplied Today Z30.42 - Encounter for surveillance of injectable contraceptive
== END 2023-05-29 15:27 | disposition home or self-care (01) ==
PROVIDERS: Visit Provider Obstetrics & Gynecology
DX: Z30.42 Encounter for surveillance of injectable contraceptive (principal)

== ENCOUNTER → 2023-05-29 15:08 | Outpatient (BNVA) | payer MEDICAID, SELFPAY | PROVIDERS: Visit Provider Obstetrics & Gynecology | DX: Z30.42 Encounter for surveillance of injectable contraceptive (principal) | CPT/HCPCS: 96372; 99211; J1050 ==

== ENCOUNTER 2023-08-14 09:42 | Outpatient (REF) | payer MEDICAID, SELFPAY ==
[2023-08-14 12:06] LABS: Rheumatoid Factor < 13.0 IU/mL (<15.0)
[2023-08-14 12:35] LABS: Alanine Aminotransferase 9 U/L (0-31); Albumin Level 4.2 g/dL (3.5-5.0); Alkaline Phosphatase 83 U/L (39-117); Anion Gap 14 (12-20); Aspartate Amino Transferase 13 U/L (5-31); Bilirubin Total 0.2 mg/dL (0.0-1.0); Blood Urea Nitrogen 12 mg/dL (9-16); C Reactive Protein 1.25 mg/dL (< or = 0.50); Calcium 9.5 mg/dL (8.4-10.2); Carbon Dioxide 22 mmol/L (22-29); Chloride 108 mmol/L (96-108); Estimated Glomerular Filt Rate > 60; Glucose Random 102 mg/dL (60-115); Potassium 3.6 mmol/L (3.3-5.1); Sodium 140 mmol/L (135-145); Total Protein 7.7 g/dL (6.5-8.0)
[2023-08-14 12:37] LABS: TSH reflex Free T4 1.61 uIU/mL (0.32-4.0); Vitamin D 25-OH Total 21.8 ng/mL (>30)
[2023-08-14 12:40] LABS: HBS Num1 0.73 mIU/mL (0-7.99); HBc Num1 0.12 S/CO (0.00-0.79); HBsAGNum1 0.33 S/CO (0.00-0.99); Hepatitis A Antibody IgM 0.15 Index (0-0.79); Hepatitis B Core Antibody Nonreactive (Nonreactive); Hepatitis B Surface Antigen Negative (Negative); ~HepC Num1 0.09 S/CO (0.00-0.79); ~Hepatitis A Antibody IgM Nonreactive (Nonreactive); ~Hepatitis B Surface Antibody NONREACTIVE (Nonreactive); ~Hepatitis C Antibody Nonreactive (Nonreactive)
[2023-08-14 13:01] LABS: Erythrocyte Sedimentation Rate 57 MM/HR (0-20)
[2023-08-15 09:49] LABS: Rubella IgG Antibody 1.47 Index; Rubeola IgG (Measles) <13.50 AU/mL
[2023-08-19 15:23] LABS: Anti Nuclear Antibody Screen NEGATIVE (NEGATIVE)
== END 2023-08-14 09:43 | disposition home or self-care (01) ==
LOC: HO.HHCL 09:42
PROVIDERS: Visit Provider Internal Medicine
DX: Z00.00 Encounter for general adult medical examination without abnormal findings (principal); M25.541 Pain in joints of right hand; M25.542 Pain in joints of left hand
CPT/HCPCS: 36415; 80053; 82306; 84443; 85652; 86038; 86140; 86431; 86704; 86706; 86709; 86735; 86762; 86765; 86803; 87340

== ENCOUNTER 2023-08-22 14:48 | Outpatient (AMB) | payer MEDICAID, SELFPAY ==
[2023-08-22 15:12] VITALS: BMI 25.3
--- NOTE | 2023-08-22 15:12 | AM.OFFVISNUR ---
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 No c/o. Pt tolerated injection well. She will schedule her next injection in 12 weeks. Pt verbalizes understanding and agrees with plan. No further questions. Office Procedures Depo Questionnaire If YES to any of the following questions, please consult a provider. Date of last injection: 08/22/23 Date of last gynecology exam: 03/04/23 Menstrual pattern since last injection has been: Not Applicable Irregular bleeding?: No Breast lumps or other breast changes?: No Changes in weight or appetite?: No Depression or changes in mood?: No Abnormal hair growth or loss?: No Skin problems (rash, acne, discoloration)?: No Pain at the injection site?: No Headaches?: No Nervousness?: No Abdominal pain or cramping?: No Dizziness or nausea?: No Fatigue or weakness?: No Decrease in sexual drive?: No Chest pain or shortness of breath?: No Swelling in arms or legs?: No Form completed by?: Omaira Vines RN Office Meds Depo-Provera 150 mg/mL intramuscular syringe Performing Provider: Altaf Mckenzie MD Performing Location: [facility] [place] [facility] Administered by: Omaira Vines on 08/22/23 15:15 Dose Route Admin Location Dispensed Lot Number Expiration Date [facility] Meteorological Observer 150 mg IM left deltoid 1 mL [id number] 09/24/25 71267-317-89 [facility] Coding Level of Care Code Established Pt Est Pt Level 1 (01608) Patient Type Established History Problem Focused Medical Decision Making Straight Forward Time Spent (min) 12 Assessment & Plan Assessment & Plan Plan Pt will schedule next injection in 12 weeks. Pt verbalizes understanding and agrees with plan. Orders: Orders AMB Medroxyprogesterone Injection Patient Supplied Today Z30.42 - Encounter for surveillance of injectable contraceptive
== END 2023-08-22 15:09 | disposition home or self-care (01) ==
LOC: HO.HWS 14:48
PROVIDERS: Visit Provider Obstetrics & Gynecology
DX: Z30.42 Encounter for surveillance of injectable contraceptive (principal)

== ENCOUNTER → 2023-08-22 14:48 | Outpatient (BNVA) | payer MEDICAID, SELFPAY | PROVIDERS: Visit Provider Obstetrics & Gynecology | DX: Z30.42 Encounter for surveillance of injectable contraceptive (principal) | CPT/HCPCS: 96372; 99211; J1050 ==

== ENCOUNTER 2023-10-14 13:24 | Outpatient (REF) | payer MEDICAID, SELFPAY ==
[2023-10-14 14:24] LABS: MANUAL DIFF FLAG NO
[2023-10-14 14:33] LABS: Basophils Percent Auto 0.3 % (0-2); Eosinophils Percent Auto 0.4 % (0-4); Hemoglobin 12.9 g/dl (12.0-16.0); Imm Gran Abs Auto 0.02 X10*3/uL (0.00-0.03); Imm Gran Pct Auto 0.3 % (0.0-0.4); Lymphocytes Absolute Auto 1.8 X10*3/uL (1.2-4.9); Lymphocytes Percent Auto 25.2 % (20-40); Mean Corpuscular HGB Conc 33.1 g/dl (31.0-35.0); Mean Corpuscular Hemoglobin 28.5 pg (27.0-33.0); Mean Corpuscular Volume 86.1 fL (80.0-98.0); Mean Platelet Volume 9.1 fL (9.4-12.3); Monocytes Absolute Auto 0.4 X10*3/uL (0.1-1.2); Monocytes Percent Auto 5.9 % (2-11); Neutrophils Absolute Auto 4.9 x10*3/uL (2.0-8.3); Neutrophils Percent Auto 67.9 % (45-73); Platelet Count 296 X10*3/uL (160-400); Red Blood Count 4.53 X10*6/uL (4.20-5.50); White Blood Count 7.3 X10*3/uL (4.8-10.8)
[2023-10-14 14:58] LABS: Alanine Aminotransferase 10 U/L (0-31); Albumin Level 4.4 g/dL (3.5-5.0); Alkaline Phosphatase 77 U/L (39-117); Anion Gap 10 (12-20); Aspartate Amino Transferase 14 U/L (5-31); Bilirubin Total 0.3 mg/dL (0.0-1.0); Blood Urea Nitrogen 9 mg/dL (9-16); C Reactive Protein < 0.10 mg/dL (< or = 0.50); Calcium 9.8 mg/dL (8.4-10.2); Carbon Dioxide 24 mmol/L (22-29); Chloride 110 mmol/L (96-108); Estimated Glomerular Filt Rate > 60; Glucose Random 104 mg/dL (60-115); Potassium 3.4 mmol/L (3.3-5.1); Sodium 141 mmol/L (135-145); Total Protein 8.1 g/dL (6.5-8.0); Uric Acid 3.5 mg/dL (2.4-5.7)
[2023-10-14 15:53] LABS: Erythrocyte Sedimentation Rate 34 MM/HR (0-20)
[2023-10-15 02:45] LABS: HBS Num1 1.67 mIU/mL (0-7.99); HBsAGNum1 0.41 S/CO (0.00-0.99); Hepatitis B Core Antibody Nonreactive (Nonreactive); Hepatitis B Surface Antigen Negative (Negative); ~HepC Num1 0.09 S/CO (0.00-0.79); ~Hepatitis A Antibody IgM Nonreactive (Nonreactive); ~Hepatitis B Surface Antibody NONREACTIVE (Nonreactive); ~Hepatitis C Antibody Nonreactive (Nonreactive)
[2023-10-15 10:48] LABS: Cyclic Citrullinated Peptide <16 UNITS
[2023-10-15 19:38] LABS: Antibody to SS-A Antigen <1.0 NEG AI (<1.0 NEG); Antibody to SS-B Antigen <1.0 NEG AI (<1.0 NEG)
[2023-10-17 16:29] LABS: HLA B27 Negative (Negative)
[2023-10-17 21:04] LABS: TS Negative Control Passed; TS Panel A 0; TS Panel B 0; TS Positive Control Passed; TSpotTB Negative (Negative)
[2023-10-20 03:49] LABS: Aldolase 3.1 U/L (<=8.1)
== END 2023-10-14 13:25 | disposition home or self-care (01) ==
LOC: HO.LAB 13:24
PROVIDERS: Visit Provider Nurse Practitioner Family
DX: M79.641 Pain in right hand (principal); M79.642 Pain in left hand; M25.561 Pain in right knee; M25.562 Pain in left knee; M23.92 Unspecified internal derangement of left knee; M23.91 Unspecified internal derangement of right knee; R70.0 Elevated erythrocyte sedimentation rate; G89.29 Other chronic pain; Z91.81 History of falling
CPT/HCPCS: 36415; 80053; 82085; 82550; 84550; 85025; 85652; 86140; 86200; 86235; 86481; 86704; 86706; 86709; 86803; 86812; 87340; 99212

== ENCOUNTER 2023-10-14 13:24 | Outpatient (AMB) | payer MEDICAID, SELFPAY ==
--- NOTE | 2023-10-14 13:36 | A.OFFVIS_ITS ---
Intake Vital Signs 10/14/23 13:37 Height 5 ft 3 in Weight 140 lb BMI 24.8 BP 118/84 Blood Pressure Location Rt brachial Position Sitting Pulse 88 Pulse Source Pulse Oximeter Temp 97.2 F Temp Source Skin Intake Visit Reasons: Arthralgia of both hands Intake Note: New patient present today with complaints of isaiah hand pain. c/o isaiah knee pain radiating toupper leg. 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 Guillen 28-year-old female presents for evaluation of hands and knee pains and elevated sed rate and CRP. The patient reports that she he has been having hand and knee pains for about 2 years but has worsened in the last 6 months. 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 She says sometimes her hands are stiff in the morning and some of her fingers are swollen and tender. She denies generalized morning stiffness but the stiffness in her hands and knees sometimes last more than 45 minutes. She says her joints hurt with movement. She has been using diclofenac gel with has helped with the knee pain. Patient denies uveitis, rashes, Raynaud's, dry eyes dry mouth, sores in the mouth. [facility] Medical History Elevated sed rate Bilateral knee pain Bilateral hand pain Depression Seasonal allergies Surgical History No history of previous surgery Family History (Updated 10/14/23 @ 14:15 by THEODORE Broussard) Mother Breast cyst Arthritis Maternal Grandmother Breast cancer Arthritis Maternal Aunt Uterine cancer Maternal Grandfather Arthritis Sister Arthritis Paternal Grandfather Arthritis Paternal Grandmother Arthritis Social History Household Members: Children Housing: Apartment Alcohol intake: never Patient Tobacco Use Status: Never used Tobacco Advance Directives: No Advance Directives Information Provided: No Current occupational status: employed 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 External ear normal. NOSE/SINUS:? Airflow through both nares, no nasal discharge, no bleeding THROAT:? Oral mucosa moist, no ulcerations NECK:? No thyromegaly or masses, no adenopathy, trachea midline. HEART:? Regular rhythm, S1-S2 heard, no murmurs, rubs or gallops. LUNG:? Clear to percussion and auscultation ABD:? Normal bowel sounds, no organomegaly, masses or tenderness. EXTREMITIES:? No edema, no calf tenderness, normal peripheral pulses. NEURO:? Oriented and alert x3.? No focal weakness.? Reflexes symmetric.? Gait normal. SKIN:? There are no skin lesions evident. No objective signs of Raynaud's phenomenon. JOINT EXAM: Cervical Spine:.? Full range of motion without pain; no tenderness. Thoracic Spine:.? No scoliosis.? No tenderness on palpation. Lumbar Spine:.? Alignment normal.? Full range of motion without pain, no tenderness. Chest Wall:.? No tenderness, swelling, increased warmth or erythema. Hands:.? Normal pain-free range of motion with tenderness MCP, PIP joints but no swelling, increased warmth or erythema. Able to make a full fist and has a good patent engineer strength but with stiffness. Wrists:.? Normal pain-free range of motion without tenderness, swelling, increased warmth or erythema. Elbows:. Normal pain-free range of motion without tenderness, swelling, incre ased warmth or erythema. Shoulders:.?? Full range of motion without pain. No tenderness, weakness, swelling, increased warmth or erythema. Hips:.? Full range of motion without pain. Hip bursa:.? No tenderness. Knees:.?? Normal pain-free range of motion with mild tenderness (right greater than left) but no swelling, increased warmth or erythema.? There is no effusion or crepitation Ankles:.? Normal pain-free range of motion without tenderness, swelling, increased warmth or erythema. Feet:.? Normal pain-free range of motion without tenderness, swelling, increased warmth or erythema. Tender points:? No tenderness to digital palpation at the occiput, trapezius, second rib, lateral epicondyle, knees, greater trochanter and gluteal area bilaterally. ? Results Reviewed Results Reviewed: Laboratory Tests 08/14/23 09:43 ESR 57 H BUN 12 Creatinine 0.78 AST 13 ALT 9 C-Reactive Protein 1.25 H 25-OH Vitamin D Total 21.8 L TSH 1.61 Assessment & Plan Assessment & Plan (1) Elevated sed rate: Code(s): R70.0 - Elevated erythrocyte sedimentation rate (2) Bilateral knee pain: Code(s): M25.561 - Pain in right knee; M25.562 - Pain in left knee Qualifiers: Chronicity: chronic Qualified Code(s): M25.561 - Pain in right knee; M25.562 - Pain in left knee; G89.29 - Other chronic pain (3) Bilateral hand pain: Code(s): M79.641 - Pain in right hand; M79.642 - Pain in left hand Plan #Hand/knee pain/elevated sed rate: Ms. Guillen has been having hand and knee pain with some swelling over the last year. Her sed rate and CRP are also elevated. She has tenderness to MCP and IP joints on PE and also along the joint lines of her knees. Given her symptoms and elevated acute phase reactant, this clinically presents as an inflammatory arthritis. Current serology is negative for rheumatoid factor and LIT. I will obtain x-rays of hands and knees and additional labs to evaluate further. Once labs are completed I will send patient a course of prednisone to see if that improves her joint pain and decreased any swelling and then reassess for return of symptoms after she stops the prednisone. Follow-up in 1 month with repeat labs for ESR/CRP I spent 45 minutes reviewing chart, evaluating patient and educating her on inflammatory arthritis processes, and documenting. Orders: Orders Erythrocyte Sedimentation Rate 10/14/23 M25.561 - Pain in right knee, M25.562 - Pain in left knee, M79.641 - Pain in right hand, M79.642 - Pain in left hand, R70.0 - Elevated erythrocyte sedimentation rate HLA B27 10/14/23 M25.561 - Pain in right knee, M25.562 - Pain in left knee, M79.641 - Pain in right hand, M79.642 - Pain in left hand XR hand LT min 3V 10/14/23 M25.561 - Pain in right knee, M25.562 - Pain in left knee, M79.641 - Pain in right hand, M79.642 - Pain in left hand, R70.0 - Elevated erythrocyte sedimentation rate XR hand RT min 3V 10/14/23 M25.561 - Pain in right knee, M25.562 - Pain in left knee, M79.641 - Pain in right hand, M79.642 - Pain in left hand, R70.0 - Elevated erythrocyte sedimentation rate XR knee LT 3V 10/14/23 M25.561 - Pain in right knee, M25.562 - Pain in left knee, M79.641 - Pain in right hand, M79.642 - Pain in left hand, R70.0 - Elevated erythrocyte sedimentation rate XR knee RT 3V 10/14/23 M25.561 - Pain in right knee, M25.562 - Pain in left knee, M79.641 - Pain in right hand, M79.642 - Pain in left hand, R70.0 - Elevated erythrocyte sedimentation rate Immunoglobulins,IgG IgA IgM 10/14/23 M25.561 - Pain in right knee, M25.562 - Pain in left knee, M79.641 - Pain in right hand, M79.642 - Pain in left hand, R70.0 - Elevated erythrocyte sedimentation rate Comprehensive Met. Panel 10/14/23 M25.561 - Pain in right knee, M25.562 - Pain in left knee, M79.641 - Pain in right hand, M79.642 - Pain in left hand Complete Blood Count Auto Diff 10/14/23 M25.561 - Pain in right knee, M25.562 - Pain in left knee, M79.641 - Pain in right hand, M79.642 - Pain in left hand Creatine Kinase Total 10/14/23 M25.561 - Pain in right knee, M25.562 - Pain in left knee, M79.641 - Pain in right hand, M79.642 - Pain in left hand Sjogren's Antibodies 10/14/23 M25.561 - Pain in right knee, M25.562 - Pain in left knee, M79.641 - Pain in right hand, M79.642 - Pain in left hand T Spot TB 10/14/23 M25.561 - Pain in right knee, M25.562 - Pain in left knee, M79.641 - Pain in right hand, M79.642 - Pain in left hand Hepatitis A,B,C Profile 10/14/23 M25.561 - Pain in right knee, M25.562 - Pain in left knee, M79.641 - Pain in right hand, M79.642 - Pain in left hand C Reactive Protein 10/14/23 M25.561 - Pain in right knee, M25.562 - Pain in left knee, M79.641 - Pain in right hand, M79.642 - Pain in left hand Aldolase 10/14/23 M25.561 - Pain in right knee, M25.562 - Pain in left knee, M79.641 - Pain in right hand, M79.642 - Pain in left hand Uric Acid 10/14/23 M25.561 - Pain in right knee, M25.562 - Pain in left knee, M79.641 - Pain in right hand, M79.642 - Pain in left hand Cyclic Citrullinated Peptide 10/14/23 M25.561 - Pain in right knee, M25.562 - Pain in left knee, M79.641 - Pain in right hand, M79.642 - Pain in left hand Medications: New prednisone 3 tablets per day x7 days 2 tablets per day x 7 days 1 tablet a day x7 days 60 tabs 0RF M25.561 - Pain in right knee, M25.562 - Pain in left knee, M79.641 - Pain in right hand, M79.642 - Pain in left hand, R70.0 - Elevated erythrocyte sedimentation rate Coding Level of Care Code New Pt Level 4 (80117) Diagnoses Elevated sed rate R70.0 Chronic pain of both knees M25.561; M25.562; G89.29 Chronicity: chronic Bilateral hand pain M79.641; M79.642
[2023-10-14 13:37] VITALS: BP 118/84; PULSE 88; TEMP 36.2; BMI 24.8
== END 2023-10-14 14:10 | disposition home or self-care (01) ==
PROVIDERS: Visit Provider Nurse Practitioner Family
DX: R70.0 Elevated erythrocyte sedimentation rate (principal); M25.561 Pain in right knee; M25.562 Pain in left knee; G89.29 Other chronic pain; M79.641 Pain in right hand; M79.642 Pain in left hand
CPT/HCPCS: 99204

== ENCOUNTER 2023-10-14 17:53 | Emergency (ER) | payer MEDICAID, SELFPAY ==
[2023-10-14 18:25] VITALS: BP 115/67; PULSE 80; RESP 18; TEMP 36.2; O2SAT 99; BMI 26.7
--- NOTE | 2023-10-14 18:49 | ED.GENADULT ---
HPI - General Adult General Chief complaint: Skin/Abscess/Foreign Body Stated complaint: cyst inner rt upper leg burst Time Seen by Provider: 10/14/23 21:51 Source: patient Mode of arrival: ambulatory Limitations: no limitations History of Present Illness HPI narrative: Patient is a 28-year-old female who presents emergency department for evaluation of ingrown hair to the mons pubis. Reports initial onset approximately 4 months ago, she was evaluated by her cloth washer operator provider who advised warm moist compresses and it went away. Reports that it returned approximately 3 days ago, had pus-like drainage from it yesterday but continues to be red and painful to touch. Denies fevers, chills, additional skin lesions or abscesses. Related Data Previous Rx's Medication Instructions Recorded medroxyprogesterone 150 mg/mL 150 mg IM Q12W 12 weeks #1 mL 05/27/23 intramuscular suspension (Depo-Provera) cephalexin 500 mg capsule 500 mg PO QID #27 caps 10/14/23 Allergies Allergy/AdvReac Type Severity Reaction Status Date / Time seasonal, in spring Allergy Unknown sneezing Uncoded 10/14/23 13:36 Review of Systems Review of Systems: Yes all other systems are reviewed and are negative PMFSH Past Medical History Attestation statement: The following information was validated with the patient. Source: old records reviewed Medical History Elevated sed rate Bilateral knee pain Bilateral hand pain Depression Seasonal allergies Surgical History No history of previous surgery Family History Family History (Updated 10/14/23 @ 14:15 by THEODORE Broussard) Mother Breast cyst Arthritis Maternal Grandmother Breast cancer Arthritis Maternal Aunt Uterine cancer Maternal Grandfather Arthritis Sister Arthritis Paternal Grandfather Arthritis Paternal Grandmother Arthritis Social History Social History Household Members: Children Housing: Apartment Alcohol intake: never Patient Tobacco Use Status: Never used Tobacco Advance Directives: No Advance Directives Information Provided: No Current occupational status: employed 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 No acute distress.?Normal affect. Neck: Normal inspection.? Neck supple.?? CVS: Heart sounds normal. Normal heart rate and rhythm.? Pulses normal.?? Respiratory: No respiratory distress.? Lung sounds clear to auscultation bilaterally?? Skin: Skin warm and dry.? Normal skin color.? 2 cm area of erythema and induration without central fluctuance Neuro: Moves all extremities spontaneously. Ambulates with normal steady gait. Course Course Course Narrative: RME: 28 yold female presens to the ED for right inner thigh cyst that is tenderness and drainage. WIll be evaluated by [facility]. Medications Administered Discontinued Medications Generic Name Dose Route Start Last Admin Trade Name Freq PRN Reason Stop Dose Admin Cephalexin HCl 500 mg 10/14/23 23:21 10/14/23 23:42 Cephalexin 500 Mg Capsule PO 10/14/23 23:22 500 mg ONCE ONE Administration Medical Decision Making Medical Decision Making [facility] Narrative: Patient is a 28-year-old female who presents emergency department for evaluation of a cyst, physical examination is consistent with Folliculitis/cellulitis of the mons pubis, non fluctuant, no abscess. Not consistent with Kareem's gangrene. She is afebrile without tachycardia, nontoxic in appearance. Discussed warm moist compresses, course of antibiotics for treatment, acetaminophen/ibuprofen for pain, worrisome signs and symptoms that would warrant re-evaluation emergency department, outpatient follow-up with primary care provider. All questions answered. Stable for discharge. Differential Diagnosis Differential Diagnoses: The differential diagnosis associated with the presentation includes (See narrative above) Prescription Management I considered prescription management with: Pain Medication (Acetaminophen/ibuprofen) and Antibiotic Discharge Plan Discharge Clinical Impression: Folliculitis Patient Disposition: Home, Self-Care Instructions: Folliculitis (ED) Additional Instructions: Continue with warm moist compresses a few times daily. Any pus-like drainage should continue to be removed. A prescription for antibiotic, cephalexin was sent to pharmacy please complete the entire course. Follow-up with your primary care provider as needed for persistent symptoms. Prescriptions: New cephalexin 500 mg capsule 500 mg PO QID Qty: 27 0RF No Action medroxyprogesterone [Depo-Provera] 150 mg/mL suspension 150 mg IM Q12W 84 Days Qty: 1 4RF Referrals: Marga Rene CUTTER OPERATOR HELPER [Primary Care Provider] - Interventions: ED Discharge Assessment Last Done: 10/14/23 23:43 Discharge Date/Time: 10/14/23 23:44
[2023-10-14 21:34] VITALS: BP 112/75; PULSE 98; O2SAT 99
[2023-10-14 23:39] VITALS: BP 113/72; PULSE 97; RESP 18; TEMP 36.6; O2SAT 99
[2023-10-14] MEDS: cephALEXin 500 MG CAPSULE PO (23:42)
== END 2023-10-14 23:44 | disposition home or self-care (01) ==
PROVIDERS: Emergency Provider Emergency Medicine; PCP Nurse Practitioner Primary Care
DX: L73.9 Follicular disorder, unspecified (principal)
CPT/HCPCS: 99283

== ENCOUNTER 2023-11-02 07:09 | Emergency (ER) | payer MEDICAID, SELFPAY ==
[2023-11-02 07:18] VITALS: BP 107/56; PULSE 60; RESP 18; TEMP 36.6; O2SAT 98; BMI 26.0
--- NOTE | 2023-11-02 07:39 | ED_ITS ---
HPI - Ear Problem General Chief complaint: Ear Problems Stated complaint: L ear pain Time Seen by Provider: 11/02/23 07:29 Source: patient Mode of arrival: ambulatory Limitations: no limitations History of Present Illness HPI Narrative: Patient is a 28-year-old female who presents emergency department for evaluation of left ear pain x2 days. She reports that this morning she had a very small amount of yellow drainage from ear when she inserted a Q-tip into the ear to try and clean it. She reports a history of ear infections, Although she states she has not been treated for 1 within the past 3 months. Denies additional URI symptoms. Denies fevers, chills, trauma or injury. Denies any change in hearing. Denies pain behind the ear radiating down the neck. Related Data Previous Rx's Medication Instructions Recorded medroxyprogesterone 150 mg/mL 150 mg IM Q12W 12 weeks #1 mL 05/27/23 intramuscular suspension (Depo-Provera) cephalexin 500 mg capsule 500 mg PO QID #27 caps 10/14/23 prednisone 5 mg tablet See Rx Instructions PO DIRECTED 10/15/23 #60 tabs amoxicillin 875 mg-potassium 1 tab PO BID #19 tabs 11/02/23 clavulanate 125 mg tablet Allergies Allergy/AdvReac Type Severity Reaction Status Date / Time seasonal, in spring Allergy Unknown sneezing Uncoded 11/02/23 07:17 Review of Systems Review of Systems: Yes all other systems are reviewed and are negative PMFSH Past Medical History Attestation statement: The following information was validated with the patient. Source: old records reviewed Medical History Elevated sed rate Bilateral knee pain Bilateral hand pain Depression Seasonal allergies Surgical History No history of previous surgery Family History Family History (Updated 10/14/23 @ 14:15 by THEODORE Broussard) Mother Breast cyst Arthritis Maternal Grandmother Breast cancer Arthritis Maternal Aunt Uterine cancer Maternal Grandfather Arthritis Sister Arthritis Paternal Grandfather Arthritis Paternal Grandmother Arthritis Social History Social History Household Members: Children Housing: Apartment Alcohol intake: never Patient Tobacco Use Status: Never used Tobacco Advance Directives: No Advance Directives Information Provided: No Current occupational status: employed 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 No acute distress.?Normal affect. Eyes: Pupils equal, round and reactive to light.? ENT: Pharynx normal.??Left TM erythematous and bulging with purulent opacity. External canal within normal range. No mastoid tenderness upon palpation. Right TM normal. Neck: Normal inspection.? Neck supple.?? CVS: Heart sounds normal. Normal heart rate and rhythm.? Pulses normal.?? Respiratory: No respiratory distress.? Lung sounds clear to auscultation bilaterally?? Abdomen: Soft and non-tender. Normoactive bowel sounds. ? Skin: Skin warm and dry.? Normal skin color.? Neuro: Moves all extremities spontaneously. Sensation intact bilaterally. CN II- XII intact. No focal neuro deficits. Ambulates with normal steady gait. Medical Decision Making Medical Decision Making MDM Narrative: Patient is a 28-year-old female who presents emergency department for evaluation of left ear pain. Physical examination is consistent with acute otitis media without spontaneous rupture, no evidence of mastoiditis, otitis externa warning, malignant otitis externa. No rashes or lesions, not consistent with the Williamson syndrome. Received initial dose of antibiotic in the emergency department felt stable for discharge home. Strict return precautions. Outpatient follow-up with primary care provider. Differential Diagnosis Differential Diagnoses: The differential diagnosis associated with the presentation includes (As noted above) Admission/Observation Consideration of admission/observation: Escalation of care including admission/observation considered (As noted above) External Record Review External record reviewed: Outpatient record Prescription Management I considered prescription management with: Pain Medication and Antibiotic Discharge Plan Discharge Clinical Impression: Otitis media, acute Patient Disposition: Home, Self-Care Instructions: Ear Infection (ED) Additional Instructions: Complete the entire course of antibiotics as prescribed. You can take ibuprofen 200 mg, 3 tablets (600mg) every 6-8 hours as needed for pain, in addition to Tylenol 500 mg, 2 tablets (1,000mg) every 4-6 hours as needed for pain, but not to exceed 3 doses daily (3,000mg).? Follow-up with your primary care provider Return back to emergency department any new or worsening symptoms or concerns. Prescriptions: New amoxicillin-pot clavulanate 875-125 mg tablet 1 tab PO BID Qty: 19 0RF No Action medroxyprogesterone [Depo-Provera] 150 mg/mL suspension 150 mg IM Q12W 84 Days Qty: 1 4RF cephalexin 500 mg capsule 500 mg PO QID Qty: 27 0RF prednisone 5 mg tablet See Rx Instructions PO DIRECTED Qty: 60 0RF Rx Instructions: 3 tablets per day x7 days 2 tablets per day x 7 days 1 tablet a day x7 days Referrals: Marga Rene [employer]PER[employer] [Primary Care Provider] -
[2023-11-02] MEDS: Amoxicillin/Potassium Clav 875 MG TABLET PO (07:44)
== END 2023-11-02 07:51 | disposition home or self-care (01) ==
PROVIDERS: Emergency Provider Student in an Organized Health Care Education/Training Program; PCP Nurse Practitioner Primary Care
DX: H92.02 Otalgia, left ear (principal); H66.92 Otitis media, unspecified, left ear
CPT/HCPCS: 99283

== ENCOUNTER 2023-11-13 13:34 | Outpatient (AMB) | payer MEDICAID, SELFPAY ==
--- NOTE | 2023-11-13 13:41 | A.OFFVIS_ITS ---
Intake Vital Signs 11/13/23 13:42 Height 5 ft 2 in Weight 145 lb 1.027 oz BMI 26.5 BP 110/60 Blood Pressure Location Rt brachial Position Sitting Pulse 99 Pulse Source Pulse Oximeter Temp 97.7 F Temp Source Skin Pulse Oximetry (%) 99 Oxygen Delivery Method Room Air Intake Visit Reasons: Hand/Knees/CONFIRMED Intake Note: Patient last seen 10/14/23 by Jan, presents today for follow up and test results. 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 Guillen has returned for follow-up after 3 weeks prednisone c ourse and to discuss labs. She reports that her hand swelling and hand pain have resolved with no return of symptoms after she completed the prednisone. She also went to the ER the beginning of October for ear infection and was placed on antibiotics, that to his also resolved. 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 She is hoping that that will help to resolve her chronic tiredness. Initial visit 10/14/2023: Ms. Guillen 28-year-old female presents for evaluation of hands and knee pains and elevated sed rate and CRP. The patient reports that she he has been having hand and knee pains for about 2 years but has worsened in the last 6 months. 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 She says sometimes her hands are stiff in the morning and some of her fingers are swollen and tender. She denies generalized morning stiffness but the stiffness in her hands and knees sometimes last more than 45 minutes. She says her joints hurt with movement. She has been using diclofenac gel with has helped with the knee pain. Patient denies uveitis, rashes, Raynaud's, dry eyes dry mouth, sores in the mouth. [facility] Medical History (Updated 11/13/23 @ 14:03 by ELIDA Barnard-) Hypovitaminosis D Elevated sed rate Bilateral knee pain Bilateral hand pain Depression Seasonal allergies Surgical History No history of previous surgery Family History Mother Breast cyst Arthritis Maternal Grandmother Breast cancer Arthritis Maternal Aunt Uterine cancer Maternal Grandfather Arthritis Sister Arthritis Paternal Grandfather Arthritis Paternal Grandmother Arthritis Social History Household Members: Children Housing: Apartment Alcohol intake: never Patient Tobacco Use Status: Never used Tobacco Current occupational status: employed 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 External ear normal. NOSE/SINUS:? Airflow through both nares, no nasal discharge, no bleeding THROAT:? Oral mucosa moist, no ulcerations NECK:? No thyromegaly or masses, no adenopathy, trachea midline. HEART:? Regular rhythm, S1-S2 heard, no murmurs, rubs or gallops. LUNG:? Clear to percussion and auscultation ABD:? Normal bowel sounds, no organomegaly, masses or tenderness. EXTREMITIES:? No edema, no calf tenderness, normal peripheral pulses. NEURO:? Oriented and alert x3.? No focal weakness.? Reflexes symmetric.? Gait normal. SKIN:? There are no skin lesions evident. No objective signs of Raynaud's phenomenon. JOINT EXAM: Cervical Spine:.? Full range of motion without pain; no tenderness. Thoracic Spine:.? No scoliosis.? No tenderness on palpation. Lumbar Spine:.? Alignment normal.? Full range of motion without pain, no tenderness. Chest Wall:.? No tenderness, swelling, increased warmth or erythema. Hands:.? Normal pain-free range of motion with no more tenderness MCP, PIP joints but no swelling, increased warmth or erythema. Able to make a full fist and has a good residence director strength but with no more stiffness. Wrists:.? Normal pain-free range of motion without tenderness, swelling, increased warmth or erythema. Elbows:. Normal pain-free range of motion without tenderness, swelling, increased warmth or erythema. Shoulders:.?? Full range of motion without pain. No tenderness, weakness, swelling, increased warmth or erythema. Hips:.? Full range of motion without pain. Hip bursa:.? No tenderness. Knees:.?? Normal pain-free range of motion with no more mild tenderness (right greater than left) but no swelling, increased warmth or erythema.? There is no effusion or crepitation Ankles:.? Normal pain-free range of motion without tenderness, swelling, increased warmth or erythema. Feet:.? Normal pain-free range of motion without tenderness, swelling, increased warmth or erythema. Tender points:? No tenderness to digital palpation at the occiput, trapezius, second rib, lateral epicondyle, knees, greater trochanter and gluteal area bilaterally. ? Results Reviewed Results Reviewed: Laboratory Tests 08/14/23 09:43 ESR 57 H BUN 12 Creatinine 0.78 AST 13 ALT 9 C-Reactive Protein 1.25 H 25-OH Vitamin D Total 21.8 L TSH 1.61 Laboratory Tests 10/14/23 14:23 WBC 7.3 RBC 4.53 Hgb 12.9 Hct 39.0 ESR 34 H AST 14 ALT 10 Alkaline Phosphatase 77 C-Reactive Protein < 0.10 Aldolase 3.1 Cycl Citrul Peptide IgG <16 SS-A/Ro Antibody <1.0 NEG SS-B/La Antibody <1.0 NEG HLA-B27 Negative Hepatitis A IgM Ab Nonreactive Hep Bs Antigen Negative Hep B Core Total Ab Nonreactive TB Test (T-Spot) Com Negative Assessment & Plan Assessment & Plan (1) Elevated sed rate: Code(s): R70.0 - Elevated erythrocyte sedimentation rate (2) Bilateral knee pain: Code(s): M25.561 - Pain in right knee; M25.562 - Pain in left knee Qualifiers: Chronicity: chronic Qualified Code(s): M25.561 - Pain in right knee; M25.562 - Pain in left knee; G89.29 - Other chronic pain (3) Bilateral hand pain: Code(s): M79.641 - Pain in right hand; M79.642 - Pain in left hand (4) Hypovitaminosis D: Code(s): E55.9 - Vitamin D deficiency, unspecified Plan #Hand/knee pain/elevated sed rate: The hand and knee pain with some swelling that she has had over the last year has resolved on the three-week course of prednisone. We need updated value sed rate and CRP. The tendon tenderness to MCP and IP joints and also along the joint lines of her knees that was present at last visit has since resolved. Given her symptoms and elevated acute phase reactant, she does clinically presents as an inflammatory arthritis. However we will not start immunosuppressive therapy at this time but will monitor for return of symptoms. Current serology is negative for rheumatoid factor and LIT. The patient forgot to obtain x-rays of hands and knees and we will do that in the upcoming weeks. She will obtain updated labs in the upcoming weeks when she is doing labs for her PCP visit. If she has return of symptoms, she knows to call the office and we will also obtain labs at that point for ESR CRP. I discussed with the patient that in the event that she has return of symptoms we will consider then to start immunosuppressive therapy to include but not limited to methotrexate or leflunomide. At the time that occurres we will discuss more about these medications. #Low Vit D: 26.8(30) I will send her a prescription for daily vitamin-D. However advised her that it is likely [id number] so she have to pay for it [id number]. Patient agrees and made a note of this. Follow-up in 6 months or sooner if needed. I spent 20 minutes reviewing lab, evaluating patient and educating her on inflammatory arthritis processes, and documenting. Orders: Orders Erythrocyte Sedimentation Rate Today M79.641 - Pain in right hand, M79.642 - Pain in left hand, R70.0 - Elevated erythrocyte sedimentation rate C Reactive Protein Today M79.641 - Pain in right hand, M79.642 - Pain in left hand, R70.0 - Elevated erythrocyte sedimentation rate Medications: New cholecalciferol (vitamin D3) 50 mcg PO DAILY 90 caps 1RF E55.9 - Vitamin D deficiency, unspecified Discontinued prednisone Discontinued Reason: Doctor's Order 3 tablets per day x7 days 2 tablets per day x 7 days 1 tablet a day x7 days 60 tabs 0RF M25.561 - Pain in right knee, M25.562 - Pain in left knee, M79.641 - Pain in right hand, M79.642 - Pain in left hand, R70.0 - Elevated erythrocyte sedimentation rate Coding Level of Care Code Est Pt Level 3 (45270) Diagnoses Elevated sed rate R70.0 Chronic pain of both knees M25.561; M25.562; G89.29 Chronicity: chronic Bilateral hand pain M79.641; M79.642 Hypovitaminosis D E55.9
[2023-11-13 13:42] VITALS: BP 110/60; PULSE 99; TEMP 36.5; O2SAT 99; BMI 26.5
== END 2023-11-13 14:08 | disposition home or self-care (01) ==
PROVIDERS: PCP Nurse Practitioner Primary Care; Visit Provider Nurse Practitioner Family
DX: R70.0 Elevated erythrocyte sedimentation rate (principal); M25.561 Pain in right knee; M25.562 Pain in left knee; G89.29 Other chronic pain; M79.641 Pain in right hand; M79.642 Pain in left hand; E55.9 Vitamin D deficiency, unspecified
CPT/HCPCS: 99213

== ENCOUNTER → 2023-11-13 13:34 | Outpatient (BNVA) | payer MEDICAID, SELFPAY | PROVIDERS: Visit Provider Nurse Practitioner Family | DX: M25.561 Pain in right knee (principal); M25.562 Pain in left knee; M79.641 Pain in right hand; M79.642 Pain in left hand; R70.0 Elevated erythrocyte sedimentation rate; G89.29 Other chronic pain | CPT/HCPCS: 99212 ==

== ENCOUNTER 2023-12-30 09:54 | Outpatient (AMB) | payer MEDICAID, SELFPAY ==
--- NOTE | 2023-12-30 09:56 | MHC.OFFVIS ---
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 She was supposed to get on November 09 and she did not get a could she has been busy with her 2 jobs. She has been on it for 5 years and does not get her. 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 So that was partly the reason she took a break from it; also she had been feeling bloated and could not food in her jeans and even though she has not lost weight she is feeling less bloated, but she still has not gotten her period. She is really clear that she does not want to have anymore children she has 2 children age 6 and 9 and she does not want anymore and in fact she has a consultation about getting her tubes tied 6 months ago but she was told she was too young yet. I reviewed with her that it has not free to be on Depo-Provera for extended periods of time because of the decreased estrogen I can contribute to thinning of her bones. She says she has not has not pain in her joints and has been seen the appellate law clerk and was given muscle vitamins to take and a cream for her joints. Discussed considering methods of control she said that she had the IUD in the past and it did not so well because it was painful for her and her partner and also she did not feel good with the Nexplanon and had had bleeding on it and the thing that has worked well for who is absolutely she can not remember to take pills either. Reviewed calcium rich diet. Reviewed weight-bearing exercise to take care of consider getting off the Depo when she can. She did have sex 2 days ago she did not use a condom she took plan B was discussed that she needs to wait at least to use and not have sex then in order to restart the Depo with a negative test, after 2 weeks of abstaining. [facility] Medical History Hypovitaminosis D Elevated sed rate Bilateral knee pain Bilateral hand pain Depression Seasonal allergies Surgical History No history of previous surgery Family History Mother Breast cyst Arthritis Maternal Grandmother Breast cancer Arthritis Maternal Aunt Uterine cancer Maternal Grandfather Arthritis Sister Arthritis Paternal Grandfather Arthritis Paternal Grandmother Arthritis Social History Household Members: Children Housing: Apartment Alcohol intake: never Patient Tobacco Use Status: Never used Tobacco Current occupational status: employed 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 Sexual orientation: Straight/Heterosexual Gender identity: Female Female Reproductive History Menstrual Age of Menarche: 15 Duration of menses: other control method: none Total pregnancies: 2 Full term: 2 Date of last pap smear: 11/13/20 (negative) History of abnormal pap smear: Yes (2018) Physical Exam Vital Signs: Last Vital Signs BP 100/60 12/30/23 09:58 BMI result Body Mass Index 27.1 Results AMB Test Urine AMB Test Urine Negative Last Edit by Linda Carrasco CMA on 12/30/23 10:08 Results Reviewed Results Reviewed: Laboratory Last Values [facility] Negative 12/30/23 10:05 Assessment & Plan Assessment & Plan (1) Amenorrhea, unspecified: Code(s): N91.2 - Amenorrhea, unspecified Category: Medical (2) Encounter for management and injection of depo-Provera: Comment: Long-term use of Depo; counseling done, missed injection 11/10/23; to restart after 2w of no UPI and negative test Code(s): Z30.42 - Encounter for surveillance of injectable contraceptive Category: Medical Plan Patient is here because she wants to restart her Depo-Provera. She was supposed to get on November 09 and she did not get a could she has been busy with her 2 jobs. She has been on it for 5 years and does not get her. 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 So that was partly the reason she took a break from it; also she had been feeling bloated and could not food in her jeans and even though she has not lost weight she is feeling less bloated, but she still has not gotten her period. She is really clear that she does not want to have anymore children she has 2 children age 6 and 9 and she does not want anymore and in fact she has a consultation about getting her tubes tied 6 months ago but she was told she was too young yet. I reviewed with her that it has not free to be on Depo-Provera for extended periods of time because of the decreased estrogen I can contribute to thinning of her bones. She says she has not has not pain in her joints and has been seen the appellate law clerk and was given muscle vitamins to take and a cream for her joints. Discussed considering methods of control she said that she had the IUD in the past and it did not so well because it was painful for her and her partner and also she did not feel good with the Nexplanon and had had bleeding on it and the thing that has worked well for who is absolutely she can not remember to take pills either. Reviewed calcium rich diet. Reviewed weight-bearing exercise to take care of consider getting off the Depo when she can. She did have sex 2 days ago she did not use a condom she took plan B was discussed that she needs to wait at least to use and not have sex then in order to restart the Depo with a negative test, after 2 weeks of abstaining. Orders: Orders AMB HCG Urine Test Today Z32.02 - Encounter for test, result negative Medications: New medroxyprogesterone (Depo-Provera) Restart per instructions, then Q 12 weeks 150 mg IM Q12W 1 mL 5RF Coding Level of Care Code Est Pt Level 3 (61158) Diagnoses Amenorrhea, unspecified N91.2 Encounter for management and injection of depo-Provera Z30.42
[2023-12-30 09:58] VITALS: BP 100/60; BMI 27.1
== END 2023-12-30 10:43 | disposition home or self-care (01) ==
PROVIDERS: Visit Provider Advanced Practice Midwife
DX: N91.2 Amenorrhea, unspecified (principal); Z30.42 Encounter for surveillance of injectable contraceptive; Z32.02 Encounter for pregnancy test, result negative
CPT/HCPCS: 99213

== ENCOUNTER → 2023-12-30 09:54 | Outpatient (BNVA) | payer MEDICAID, SELFPAY | PROVIDERS: Visit Provider Advanced Practice Midwife | DX: Z30.09 Encounter for other general counseling and advice on contraception (principal); N91.2 Amenorrhea, unspecified | CPT/HCPCS: 81025; 99212 ==

== ENCOUNTER 2024-01-13 12:43 | Outpatient (AMB) | payer MEDICAID, SELFPAY ==
[2024-01-13 13:01] VITALS: BMI 26.7
--- NOTE | 2024-01-13 13:01 | AM.OFFVISNUR ---
Intake Vital Signs 01/13/24 13:01 Height 5 ft 2 in Weight 66.281 kg BMI 26.7 Intake Visit Reasons: DEPO Allergies seasonal, in spring Allergy (Unknown, Uncoded 12/30/23 09:59) sneezing Nursing Note Tom is here today for her Depo-Provera restart. Pt had neg test in office today. She denies any recent intercourse in the last 2 weeks. Depo-provera inj given, pt was reminded to use BUM x 2 weeks, and to follow up for next inj in 12 wks. Pt verbs understanding. Office Procedures Depo Questionnaire If YES to any of the following questions, please consult a provider. Date of last menstrual period: 10/07/23 Menstrual pattern since last injection has been: Not Applicable test in office results: Negative Irregular bleeding?: No Breast lumps or other breast changes?: No Changes in weight or appetite?: No Depression or changes in mood?: No Abnormal hair growth or loss?: No Skin problems (rash, acne, discoloration)?: No Pain at the injection site?: No Headaches?: No Nervousness?: No Abdominal pain or cramping?: No Dizziness or nausea?: No Fatigue or weakness?: No Decrease in sexual drive?: No Chest pain or shortness of breath?: No Swelling in arms or legs?: No Form completed by?: Faiza Mckay LPN Office Meds Depo-Provera 150 mg/mL intramuscular syringe Performing Provider: Jaqueline Montez CNM [place] [facility] Administered by: Meghna Mckay LPN on 01/13/24 13:04 Dose Route Admin Location Dispensed Lot Number Expiration Date [facility] [employer] 150 mg IM Lt. deltoid 1 mL [id number] 11/22/25 [id number] [facility] Results AMB Test Urine AMB Test Urine Negative Last Edit by Meghna Mckay LPN on 01/13/24 13:09 Coding Level of Care Code Established Pt Est Pt Level 1 (37330) Patient Type Established History Problem Focused Exam Problem Focused Medical Decision Making Straight Forward Time Spent (min) 25 Assessment & Plan Assessment & Plan Orders: Orders AMB Medroxyprogesterone Injection Patient Supplied Today Z30.42 - Encounter for surveillance of injectable contraceptive Medications: New Depo-Provera (medroxyprogesterone) 150 mg IM ONCE 1 mL 0RF NS Z30.42 - Encounter for surveillance of injectable contraceptive
== END 2024-01-13 13:02 | disposition home or self-care (01) ==
LOC: HO.HWS 12:43
PROVIDERS: Visit Provider Advanced Practice Midwife
DX: Z30.42 Encounter for surveillance of injectable contraceptive (principal)

== ENCOUNTER → 2024-01-13 12:43 | Outpatient (BNVA) | payer MEDICAID, SELFPAY | PROVIDERS: Visit Provider Advanced Practice Midwife | DX: Z30.42 Encounter for surveillance of injectable contraceptive (principal) | CPT/HCPCS: 96372; 99211; J1050 ==

== ENCOUNTER 2024-01-15 15:17 | Outpatient (REF) | payer MEDICAID, SELFPAY | END 2024-01-15 15:18 | disposition home or self-care (01) | LOC: HO.SH 15:17 | PROVIDERS: Visit Provider Internal Medicine | DX: Z01.118 Encounter for examination of ears and hearing with other abnormal findings (principal); H90.0 Conductive hearing loss, bilateral | CPT/HCPCS: 92557 ==

== ENCOUNTER 2024-03-08 14:47 | Outpatient (REF) | payer MEDICAID, SELFPAY ==
[2024-03-09 17:30] LABS: CT PCR NOT DETECTED (Not Detect.); NG PCR NOT DETECTED (Not Detect.)
== END 2024-03-08 14:48 | disposition home or self-care (01) ==
LOC: HO.LNP 14:47
PROVIDERS: Visit Provider Obstetrics & Gynecology
DX: Z01.419 Encounter for gynecological examination (general) (routine) without abnormal findings (principal); Z20.2 Contact with and (suspected) exposure to infections with a predominantly sexual mode of transmission
CPT/HCPCS: 87491; 87591; 87625; 88175; 99395

== ENCOUNTER 2024-03-08 14:47 | Outpatient (AMB) | payer MEDICAID, SELFPAY ==
[2024-03-08 15:01] VITALS: BP 114/66; BMI 29.3
--- NOTE | 2024-03-08 15:01 | A.OFFVIS_ITS ---
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 No complaints. The patient has been on Depo-Provera over the last 7 years and would like to discuss different options of control Last Pap was negative in 01/12 [facility] Medical History Hypovitaminosis D Elevated sed rate Bilateral knee pain Bilateral hand pain Depression Seasonal allergies Surgical History No history of previous surgery Family History Mother Breast cyst Arthritis Maternal Grandmother Breast cancer Arthritis Maternal Aunt Uterine cancer Maternal Grandfather Arthritis Sister Arthritis Paternal Grandfather Arthritis Paternal Grandmother Arthritis Social History Household Members: Children Housing: Apartment Alcohol intake: never Patient Tobacco Use Status: Never used Tobacco Current occupational status: employed 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 Sexual orientation: Straight/Heterosexual Gender identity: Female Female Reproductive History Menstrual Age of Menarche: 15 control method: progesterone injection Total pregnancies: 2 Full term: 2 Number of Living Children: 2 Date of last pap smear: 11/13/20 Review of Systems Const All systems reviewed & are unremarkable except as noted in HPI and below Card Reports as per HPI Resp Reports as per HPI GI Reports as per HPI and Reports no additional complaints Reports as per HPI Physical Exam Vital Signs: Last Vital Signs BP 114/66 03/08/24 15:01 BMI result Body Mass Index 29.3 Const General: cooperative, healthy appearing and comfortable Chest Chest palpation & inspection: normal inspection of the chest and normal palpation of entire chest wall Breast/axilla inspection: normal inspection of the breasts and normal inspection of the axillae Breast/axilla palpation: normal palpation of the breasts, normal palpation of the axillae and no axillary lymphadenopathy Resp Effort & Inspection: normal respiratory effort Auscultation: clear to auscultation bilaterally Percussion: percussion normal Cardio Palpation: normal PMI Rate: regular rate Rhythm: regular rhythm Heart sounds: no murmurs and no rubs Peripheral pulses: Peripheral pulses 2+ throughout GI Inspection: Yes normal to inspection Palpation (GI): Soft to palpation, nontender, no guarding, not rigid and No hepatosplenomegaly present Percussion: Yes normal to percussion Auscultation: normal bowel sounds Rectal Exam - Female: deferred General: Yes bladder normal to palpation External Female Exam: No lesion Speculum Exam - Vagina: normal appearance of the vagina, normal palpation, normal vaginal discharge and not erythematous Speculum Exam - Cervix: normal appearance of the cervix and normal palpation Bimanual exam- vagina & uterus: normal bimanual exam, normal palpation, uterine size normal, bladder normal to palpation, consistency normal and normal palpation Bimanual Exam- Adnexa, other: normal adnexae, no masses and no tenderness Assessment & Plan Assessment & Plan (1) Well woman exam with routine gynecological exam: Code(s): Z01.419 - Encounter for gynecological examination (general) (routine) without abnormal findings Category: Medical Plan: Pap smear taken. Counseled the patient about the recommended dietary allowance of 1000 mg of Calcium & 600 IU of vitamin D. The patient was instructed to perform monthly self-breast exams , to call for any changes in menstrual patterns and to schedule an annual exam in a year; all questions answered and the patient verbalized understanding. (2) Family planning: Code(s): Z30.09 - Encounter for other general counseling and advice on contraception Category: Social Hx Plan: Discussed with the patient the different options of control including control pills/Nuvaring, DMPA, different types of IUD ?s, sterilization. All the pros, cons, risks and benefits of each were discussed with the patient. The patient decided to go ahead with an IUD, so a more detailed discussion was carried on including types (Progesterone, Copper), mechanism of action, risks (infection, uterine perforation, failure with ectopic , septic AB, dysmenorrhea with Paraguard, others) benefits (efficient contraceptive method, hypo menorrhea with Progesterone IUD, others) GC/CG were taken and the patient was instructed schedule an appointment for IUD insertion 2 weeks prior to next Depo-Provera injection appointment. Coding Level of Care Code Est Pt Prev Care 18-39y(69830) Diagnoses Well woman exam with routine gynecological exam Z01.419 Family planning Z30.09
== END 2024-03-08 15:32 | disposition home or self-care (01) ==
PROVIDERS: Visit Provider Obstetrics & Gynecology
DX: Z01.419 Encounter for gynecological examination (general) (routine) without abnormal findings (principal); Z30.09 Encounter for other general counseling and advice on contraception
CPT/HCPCS: 99395

== ENCOUNTER 2024-03-23 10:29 | Outpatient (AMB) | payer MEDICAID, SELFPAY ==
--- NOTE | 2024-03-23 11:11 | A.OFFVIS_ITS ---
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 Services: Heating Element Builder Present (in person) Heating Element Builder Name: No JAIMES Information Interpreted: non-clinical & clinical Academic Advising Director: Academic Advising Director Present (No JAIMES) Accompanied by: Self / Same As Patient Allergies seasonal, in spring Allergy (Unknown, Uncoded 03/23/24 11:15) sneezing HPI Comments Details: Presenting for Mirena IUD insertion [facility] Medical History Hypovitaminosis D Elevated sed rate Bilateral knee pain Bilateral hand pain Depression Seasonal allergies Surgical History No history of previous surgery Family History Mother Breast cyst Arthritis Maternal Grandmother Breast cancer Arthritis Maternal Aunt Uterine cancer Maternal Grandfather Arthritis Sister Arthritis Paternal Grandfather Arthritis Paternal Grandmother Arthritis Social History Household Members: Children Housing: Apartment Alcohol intake: never Patient Tobacco Use Status: Never used Tobacco Current occupational status: employed 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 Sexual orientation: Straight/Heterosexual Gender identity: Female Female Reproductive History Menstrual Age of Menarche: 15 Review of Systems Const All systems reviewed & are unremarkable except as noted in HPI and below Reports as per HPI and Reports no additional complaints GI Reports no additional complaints Reports no additional complaints Physical Exam Vital Signs: BMI result Body Mass Index 29.0 Office Procedures IUD Insert/Removal Details Details: The patient is presenting for Mirena IUD insertion Urine test was done in the office and was negative; All the contraindications were excluded. The following possible complications were discussed with the patient: Intrauterine , Ectopic , Sepsis, Pelvic Infection, Irregular Bleeding and Amenorrhea, Perforation, Expulsion, Ovarian Cysts, Breast Cancer, The following adverse effects were discussed with the patient: alteration of menstrual bleeding pattern, including: unscheduled uterine bleeding decreased uterine bleeding increased scheduled uterine bleeding female genital tract bleeding ,amenorrhea , genital discharge , vulvovaginitis , breast pain , benign ovarian cyst and associated complications , dysmenorrhea , Gastrointestinal disorders abdominal/pelvic pain, headache/migraine , back pain , acne , depression Alternative options were discussed with the patient including but not limited: control pills, patch, NuvaRing, Depo-medroxyprogesterone acetate, Nexplanon, copper IUD, sterilization, vasectomy, others The procedure was explained in detail to patient , at the end patient signed the informed consent obtained. A no touch technique was used throughout the procedure. A speculum was placed into vagina and cervix was cleaned with betadine). A tenaculum was placed. A plastic sound was advanced through the external and internal os until it reached the fundus of the uterus, the depth was 8 cm. The sound was then withdrawn. The IUD was loaded in a sterile manner and advanced into position. The string was visualized and cut to 3 cm. Tenaculum site hemostatic. All instruments removed from vagina. Patient tolerated the procedure well. NO complications were noted. Patient was instructed to call for fever over 100.4, significant pain unrelieved by Motrin, IUD expulsion, heavy bleeding, or abnormal discharge. In addition, the following clinical considerations were discussed with the patient to call for removal: A stroke or heart attack ,Very severe or migraine headaches ,Unexplained fever ,Yellowing of the skin or whites of the eyes, as these may be signs of serious liver problems , or suspected , Pelvic pain or pain during sex ,HIV positive seroconversion in herself or her partner , Possible exposure to sexually transmitted infections Unusual vaginal discharge or genital sores , severe vaginal bleeding or bleeding that lasts a long time, or if she misses a menstrual period, Inability to feel Mirena's threads Counseled the patient that the IUD does not protect against STI's, recommended use of condoms for the first 7 days post insertion and explained to the patient that condoms are recommended for patients at risk for sexually transmitted infections. Informed the patient that Mirena IUD is FDA approved for 8 years for contraception for 5 years for the treatment of heavy menses Instructed the patient to schedule a Follow up appointment in 4 to 6 weeks following insertion. This note was generated with a voice recognition program. Some errors may have been overlooked during the review of this note. Sometimes these errors may affect the content or meaning of a given sentence. [id number] Insertion Procedure code (CPT) selection complete Office Meds Mirena 21 mcg/24 hr (up to 8 years) 52 mg intrauterine device Performing Provider: Altaf Mckenzie MD [place] [facility] Documented (not given) by: Altaf Mckenzie MD on 03/23/24 11:28 Dose Route Admin Location Dispensed Lot Number Expiration Date NDC Director Safety Council 1 device intrauterine ea Results AMB Test Urine AMB Test Urine Negative Last Edit by No Daniel CMA on 11:20 Assessment & Plan Assessment & Plan (1) Encounter for IUD insertion: Code(s): Z30.430 - Encounter for insertion of intrauterine contraceptive device Category: Medical Plan: Mirena IUD inserted, see procedure Orders: Orders AMB HCG Urine Test Today Z32.02 - Encounter for test, result negative AMB IUD Insertion/Removal - Practice Supplied Today Z30.430 - Encounter for insertion of intrauterine contraceptive device Medications: New Mirena (levonorgestrel) 1 device intrauterine ONCE 1 ea 0RF Mirena IUD insertion NS Z30.430 - Encounter for insertion of intrauterine contraceptive device Coding Level of Care Code Procedure Only Diagnoses Encounter for IUD insertion Z30.430 CPT Codes Details - CPT: 55737-EKJ Insertion ([id number])
[2024-03-23 11:14] VITALS: BMI 29.0
== END 2024-03-23 11:36 | disposition home or self-care (01) ==
LOC: HO.HWS 10:29
PROVIDERS: Visit Provider Obstetrics & Gynecology
DX: Z30.430 Encounter for insertion of intrauterine contraceptive device (principal); Z32.02 Encounter for pregnancy test, result negative
CPT/HCPCS: 58300

== ENCOUNTER → 2024-03-23 10:29 | Outpatient (BNVA) | payer MEDICAID, SELFPAY | PROVIDERS: Visit Provider Obstetrics & Gynecology | DX: Z30.430 Encounter for insertion of intrauterine contraceptive device (principal) | CPT/HCPCS: 58300; 81025; J7298 ==

== ENCOUNTER 2024-03-23 11:45 | Emergency (ER) | payer MEDICAID, SELFPAY ==
--- NOTE | 2024-03-23 11:52 | ECG_ITS ---
Test Reason : NEAR SYNCOPE Blood Pressure : / mmHG Vent. Rate : 067 BPM Atrial Rate : 067 BPM P-R Int : 172 ms QRS Dur : 090 ms QT Int : 374 ms P-R-T Axes : 059 045 037 degrees QTc Int : 395 ms Normal sinus rhythm with sinus arrhythmia Normal ECG When compared with ECG of 02-NOV-2021 10:45, No significant change was found Referred By: Meghan Jackson Electronically Signed By:Joon Stanford
[2024-03-23 11:53] VITALS: BP 130/83; PULSE 78; RESP 19; TEMP 36.8; O2SAT 99; BMI 25.6
[2024-03-23 12:04] LABS: MANUAL DIFF FLAG NO
[2024-03-23 12:10] LABS: Basophils Percent Auto 0.4 % (0-2); Eosinophils Absolute Auto 0.1 X10*3/uL (0.0-0.4); Eosinophils Percent Auto 0.6 % (0-4); Hematocrit 38.9 % (37.0-47.0); Hemoglobin 13.4 g/dl (12.0-16.0); Imm Gran Abs Auto 0.02 X10*3/uL (0.00-0.03); Imm Gran Pct Auto 0.2 % (0.0-0.4); Lymphocytes Absolute Auto 2.5 X10*3/uL (1.2-4.9); Lymphocytes Percent Auto 30.7 % (20-40); Mean Corpuscular HGB Conc 34.4 g/dl (31.0-35.0); Mean Corpuscular Hemoglobin 29.2 pg (27.0-33.0); Mean Corpuscular Volume 84.7 fL (80.0-98.0); Mean Platelet Volume 8.9 fL (9.4-12.3); Monocytes Absolute Auto 0.7 X10*3/uL (0.1-1.2); Monocytes Percent Auto 8.6 % (2-11); Neutrophils Absolute Auto 4.9 x10*3/uL (2.0-8.3); Neutrophils Percent Auto 59.5 % (45-73); Platelet Count 290 X10*3/uL (160-400); Red Blood Count 4.59 X10*6/uL (4.20-5.50); Red Cell Distribution Width 12.8 % (11.0-16.0); White Blood Count 8.3 X10*3/uL (4.8-10.8)
[2024-03-23 12:12] VITALS: BP 123/78; PULSE 70
[2024-03-23 12:14] VITALS: BP 111/77; PULSE 72
[2024-03-23 12:15] VITALS: BP 116/81; PULSE 74
[2024-03-23 12:32] LABS: Alanine Aminotransferase 11 U/L (0-31); Albumin Level 4.4 g/dL (3.5-5.0); Alkaline Phosphatase 80 U/L (39-117); Anion Gap 14 (12-20); Aspartate Amino Transferase 18 U/L (5-31); Bilirubin Direct 0.1 mg/dL (0.0-0.5); Bilirubin Total 0.4 mg/dL (0.0-1.0); Blood Urea Nitrogen 13 mg/dL (9-16); Calcium 9.9 mg/dL (8.4-10.2); Carbon Dioxide 20 mmol/L (22-29); Chloride 107 mmol/L (96-108); Creatinine Clr Calc Pharmacy 105.3; Estimated Glomerular Filt Rate > 60; Glucose Random 89 mg/dL (60-115); Potassium 3.9 mmol/L (3.3-5.1); Sodium 137 mmol/L (135-145); Total Protein 8.1 g/dL (6.5-8.0)
--- NOTE | 2024-03-23 12:54 | PC.NURSE ---
Pt reports she was at appointment today, upstairs here at [facility] for IUD placement. After IUD placement pt felt severe lower ABD pain, sharp and cramping. Left appointment and it became worse, felt lightheaded, no fall or LOC. Pt reports light red blood when she wipes, denies clots or significant bleeding. Alert and oriented, breathing even and unlabored, restless. Pain 10/10.
--- NOTE | 2024-03-23 13:34 | ED_ITS ---
HPI - General Adult General Chief complaint: Abdominal Pain Stated complaint: near syncope Time Seen by Provider: 03/23/24 13:27 Source: patient Mode of arrival: ambulatory Limitations: no limitations History of Present Illness HPI narrative: This is a 28-year-old with no reported past medical history who presents from the hospital entrance for evaluation of syncope. She states that she had an IUD inserted today just prior to arrival. She reports walking 0 and developing lower abdominal pain/cramping. She reports sensation of lightheadedness and states that she then passed out briefly. She reports waking up almost immediately afterwards. She states that she is still experiencing lower abdominal cramping at this time. She states that she has not taken anything for pain. She states that she was having the IUD placed because she does not want to have any more kids. She states no head strike. She states no vomiting since the incident. She states taking no blood thinning medications. She states no associated prodrome of headache, vision changes, chest pain, palpitations or difficulty breathing. She states noting small amount of vaginal bleeding, which she was told by her OBGYN was to be expected. She states otherwise feeling well. She states no recent febrile illness. She states no recent changes to bowel habits or urinary symptoms. She states no back pain or neck pain. She states no paresthesias. Related Data Home Medications ?Medication ?Instructions ?Recorded ?Confirmed diclofenac sodium 1 % topical gel 2 g topical pain 11/13/23 12/30/23 Previous Rx's ?Medication ?Instructions ?Recorded cholecalciferol (vitamin D3) 50 50 mcg PO DAILY #90 caps 11/13/23 mcg (2,000 unit) capsule Allergies Allergy/AdvReac Type Severity Reaction Status Date / Time seasonal, in spring Allergy Unknown sneezing Uncoded 03/23/24 11:54 Review of Systems 2 Review of Systems: ROS as per HPI [facility] Past Medical History Medical History Hypovitaminosis D Elevated sed rate Bilateral knee pain Bilateral hand pain Depression Seasonal allergies Surgical History No history of previous surgery Family History Family History Mother Breast cyst Arthritis Maternal Grandmother Breast cancer Arthritis Maternal Aunt Uterine cancer Maternal Grandfather Arthritis Sister Arthritis Paternal Grandfather Arthritis Paternal Grandmother Arthritis Social History Social History Household Members: Children Housing: Apartment Alcohol intake: never Patient Tobacco Use Status: Never used Tobacco Smoked in Last 30 Days: No Use of substances other than those prescribed or required for medical reasons: No Advance Directives: No Advance Directives Information Provided: Yes Patient : No Current occupational status: employed Current occupation: [employer] Sexual orientation: Straight/Heterosexual Gender identity: Female Physical Exam ED Vital Signs: Vital Signs - 24 hr 03/23/24 11:53 03/23/24 12:12 03/23/24 12:14 Temperature 98.3 F Pulse Rate 78 70 72 Respiratory Rate 19 Blood Pressure 130/83 123/78 111/77 Pulse Oximetry 99 Oxygen Delivery Method Room Air 03/23/24 12:15 03/23/24 14:25 Temperature 98.5 F Pulse Rate 74 77 Respiratory Rate 12 Blood Pressure 116/81 116/65 Pulse Oximetry 98 Oxygen Delivery Method Room Air BMI result Body Mass Index 25.6 Gen: NAD, AOx3 HEENT: NCAT, EOMI, normal conjunctiva CV: RRR, no murmurs appreciated, 2+ bilateral radial pulses Pulm: CTAB, no increased work of breathing GI: Soft, NTND, no rebound, guarding or rigidity Neuro: Grossly non focal Medications Administered Discontinued Medications Generic Name Dose Route Start Last Admin Trade Name Freq PRN Reason Stop Dose Admin Lactated Ringer's 500 mls @ 999 mls/hr 03/23/24 13:45 03/23/24 14:37 Lr IV 03/23/24 14:15 Infused .Q31M RACHEL Infusion Ketorolac Tromethamine 15 mg 03/23/24 13:32 03/23/24 13:39 Ketorolac Tromethamine 15 Mg/Ml Vial IVPUSH 03/23/24 13:33 15 mg ONCE ONE Administration Medical Decision Making Medical Decision Making [facility] Narrative: Differential diagnosis includes, but is not limited to vasovagal episode, arrhythmia, orthostasis. Patient is afebrile and hemodynamically stable on room air. Exam is benign and reassuring. I reviewed and interpreted labs, which are noncontributory. I reviewed and interpreted EKG, which is unremarkable for any acute findings. The patient is provided IV fluids Toradol. Given history of previous episodes of syncope inpatient presenting with lightheadedness and pain after IUD insertion with a brief episode of loss of consciousness, I do suspect that patient's presentation today secondary to vasovagal episode. On re-examination, patient is well-appearing and in no acute distress. ?Patient states symptoms have resolved. ?Patient is independently ambulatory and tolerating p.o. intake. There is no indication for further emergent evaluation in this otherwise well-appearing patient as above. ?Patient is provided written and verbal instructions, educational materials, recommendations for outpatient follow-up, strict return precautions and teach back is performed. ?Patient states understanding and agreement with plan of care. ?Patient is discharged home in stable and improved condition. Admission/Observation Consideration of admission/observation: Escalation of care including admission/observation considered Lab Data MDM Lab Attestation statement: I reviewed the patient's lab results. I independently reviewed and interpreted patient's labs, which are unremarkable and noncontributory. 03/23/24 11:59 03/23/24 11:59 Labs: Lab Results 03/23/24 Range/Units 11:59 WBC 8.3 (4.8-10.8) X10*3/uL RBC 4.59 (4.20-5.50) X10*6/uL Hgb 13.4 (12.0-16.0) g/dl Hct 38.9 (37.0-47.0) % MCV 84.7 (80.0-98.0) fL MCH 29.2 (27.0-33.0) pg MCHC 34.4 (31.0-35.0) g/dl RDW 12.8 (11.0-16.0) % Plt Count 290 (160-400) X10*3/uL MPV 8.9 L (9.4-12.3) fL Immature Gran % (Auto) 0.2 (0.0-0.4) % Neut % (Auto) 59.5 (45-73) % Lymph % (Auto) 30.7 (20-40) % [place] % (Auto) 8.6 (2-11) % Eos % (Auto) 0.6 (0-4) % Baso % (Auto) 0.4 (0-2) % Lymph # (Auto) 2.5 (1.2-4.9) X10*3/uL [place] # (Auto) 0.7 (0.1-1.2) X10*3/uL Eos # (Auto) 0.1 (0.0-0.4) X10*3/uL Baso # (Auto) 0.0 (0.0-0.2) X10*3/uL Abs Immat Gran (auto) 0.02 (0.00-0.03) X10*3/uL Absolute Neuts (auto) 4.9 (2.0-8.3) x10*3/uL Absolute Nucleated RBC 0.000 (0.0-0.012) X10*3/uL Nucleated RBC % (auto) 0.0 (0.0-0.2) /100WBC Sodium 137 (135-145) mmol/L Potassium 3.9 (3.3-5.1) mmol/L Chloride 107 (96-108) mmol/L Carbon Dioxide 20 L (22-29) mmol/L Anion Gap 14 (12-20) BUN 13 (9-16) mg/dL Creatinine 0.73 (0.5-1.4) mg/dL Estim Creat Clear Calc 105.3 Estimated GFR > 60 Random Glucose 89 (60-115) mg/dL Calcium 9.9 (8.4-10.2) mg/dL Magnesium 2.0 (1.6-2.6) mg/dL Total Bilirubin 0.4 (0.0-1.0) mg/dL Direct Bilirubin 0.1 (0.0-0.5) mg/dL AST 18 (5-31) U/L ALT 11 (0-31) U/L Alkaline Phosphatase 80 (39-117) U/L Total Protein 8.1 H (6.5-8.0) g/dL Albumin 4.4 (3.5-5.0) g/dL Independent Interpretation I performed an independent interpretation of an: EKG Interpretation: I reviewed and interpreted the patient's EKG, which demonstrates sinus rhythm at 67 beats per minute ID 172, QRS 90, QTC 495, no Brugada morphology, no epsilon waves, no dagger-like Q-waves, no delta waves, no STEMI Discharge Plan Discharge Clinical Impression: Syncope, vasovagal Patient Disposition: Home, Self-Care Instructions: Syncope (ED) Additional Instructions: You were seen and evaluated in the emergency room. Your vital signs were normal. ? Your blood work was normal. Your chest x-ray was normal. Please follow-up with your primary care doctor in the next 5-7 days. ? Please follow-up with your OBGYN at your previously scheduled appointment in 4-6 weeks. Please return to the emergency room if you develop any worsening symptoms including, but not limited to fever, abnormal vaginal discharge, heavy vaginal bleeding, severe abdominal pain, persistent nausea/vomiting or inability to eat/drink. Prescriptions: No Action diclofenac sodium 1 % gel 2 g topical cholecalciferol (vitamin D3) 50 mcg (2,000 unit) capsule 50 mcg PO DAILY Qty: 90 1RF Print Language: Italian
[2024-03-23] MEDS: Ketorolac Tromethamine 15 MG/ML VIAL IVPUSH (13:39)
[2024-03-23] MEDS: Lactated Ringers 500 ML 999 ML IV (13:41)
[2024-03-23 14:25] VITALS: BP 116/65; PULSE 77; RESP 12; TEMP 36.9; O2SAT 98
[2024-03-23 14:52] VITALS: BP 109/77; PULSE 73; RESP 16; TEMP 36.6; O2SAT 98
== END 2024-03-23 14:53 | disposition home or self-care (01) ==
PROVIDERS: Physician Assistant; Emergency Provider Emergency Medicine; PCP Nurse Practitioner Primary Care
DX: R55 Syncope and collapse (principal); I49.8 Other specified cardiac arrhythmias; R10.2 Pelvic and perineal pain; R25.2 Cramp and spasm; R11.0 Nausea; Z79.899 Other long term (current) drug therapy
CPT/HCPCS: 36415; 80048; 80076; 83735; 85025; 93005; 96361; 96374; 99284; 99285; J1885; J7120

== ENCOUNTER → 2024-03-23 11:52 | Outpatient (BNV) | payer MEDICAID, SELFPAY | PROVIDERS: Emergency Provider Emergency Medicine; PCP Nurse Practitioner Primary Care; Visit Provider Internal Medicine Cardiovascular Disease | DX: R55 Syncope and collapse (principal) | CPT/HCPCS: 93010 ==

== ENCOUNTER 2024-05-10 14:52 | Outpatient (REF) | payer MEDICAID, SELFPAY ==
[2024-05-11 03:58] LABS: CT PCR NOT DETECTED (Not Detect.); NG PCR NOT DETECTED (Not Detect.)
[2024-05-11 11:27] LABS: Bacterial Vaginosis PCR POSITIVE (Negative); Candida Group PCR NOT DETECTED (Not Detect); Candida glab krusei PCR NOT DETECTED (Not Detect); Trichomonas vaginalis PCR NOT DETECTED (Not Detect)
== END 2024-05-10 14:53 | disposition home or self-care (01) ==
LOC: HO.LNP 14:52
PROVIDERS: PCP Nurse Practitioner Primary Care; Visit Provider Obstetrics & Gynecology
DX: Z30.431 Encounter for routine checking of intrauterine contraceptive device (principal); N76.0 Acute vaginitis
CPT/HCPCS: 0352U; 87491; 87591

== ENCOUNTER 2024-05-10 14:52 | Outpatient (AMB) | payer MEDICAID, SELFPAY ==
--- NOTE | 2024-05-10 15:02 | A.OFFVIS_ITS ---
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 The patient has no complaints except for vulvovaginal itching over the last few days [facility] Medical History Hypovitaminosis D Elevated sed rate Bilateral knee pain Bilateral hand pain Depression Seasonal allergies Surgical History No history of previous surgery Family History Mother Breast cyst Arthritis Maternal Grandmother Breast cancer Arthritis Maternal Aunt Uterine cancer Maternal Grandfather Arthritis Sister Arthritis Paternal Grandfather Arthritis Paternal Grandmother Arthritis Social History Household Members: Children Housing: Apartment Alcohol intake: never Patient Tobacco Use Status: Never used Tobacco Current occupational status: employed 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 [employer] Sexual orientation: Straight/Heterosexual Gender identity: Female Female Reproductive History Menstrual Age of Menarche: 15 Review of Systems Const All systems reviewed & are unremarkable except as noted in HPI and below Physical Exam Vital Signs: BMI result Body Mass Index 28.9 General: Yes no CVA tenderness External Female Exam: normal external appearance and normal appearance of the urethra Speculum Exam - Vagina: normal appearance of the vagina, normal palpation, no lesions and no masses Speculum Exam - Cervix: normal appearance of the cervix, normal palpation, no lesions, no masses, nontender and Other cervical findings present (IUD check) Bimanual exam- vagina & uterus: normal bimanual exam, normal palpation, uterine size normal, normal palpation, uterine shape normal, No Cervical tenderness present and non-tender Bimanual Exam- Adnexa, other: normal adnexae Back/Spine/Pelvis Back: no CVA tenderness Assessment & Plan Assessment & Plan (1) IUD check up: Code(s): Z30.431 - Encounter for routine checking of intrauterine contraceptive device Category: Medical Plan: UPT done in the office was negative. Discussed with the patient the finding on physical exam, IUD string in place, the patient was reassured. Instructions given to patient to call in case of temperature above 100.4, severe cramping/pelvic pain, abnormal discharge or abnormal uterine bleeding or if she misses her menstrual cycle. Otherwise follow-up at her annual exam appointment. All questions answered, the patient verbalized understanding. (2) Vulvovaginitis: Code(s): N76.0 - Acute vaginitis Category: Medical Plan: GC/CT, Bacterial Vaginosis panel taken, Terazol 0.8% q.h.s. for 3 days was sent to the patient's pharmacy. The patient was instructed to call if symptoms don't improve in 48 hours. Orders: Orders CT NG by PCR Vag/Cerv 05/10/24 N76.0 - Acute vaginitis Bacterial Vaginosis Panel 05/10/24 N76.0 - Acute vaginitis Medications: New terconazole 0.8% 1 appful vaginal BEDTIME 20 grams 0RF 3 days Coding Level of Care Code Est Pt Level 3 (59812) Diagnoses IUD check up Z30.431 Vulvovaginitis N76.0
[2024-05-10 15:03] VITALS: BMI 28.9
== END 2024-05-10 15:14 | disposition home or self-care (01) ==
LOC: HO.HWS 14:52
PROVIDERS: PCP Nurse Practitioner Primary Care; Visit Provider Obstetrics & Gynecology
DX: Z30.431 Encounter for routine checking of intrauterine contraceptive device (principal); N76.0 Acute vaginitis
CPT/HCPCS: 99499

== ENCOUNTER 2024-05-25 12:56 | Outpatient (REF) | payer MEDICAID, SELFPAY | END 2024-05-25 12:57 | disposition home or self-care (01) | LOC: HO.HHCLNP 12:56 | PROVIDERS: Visit Provider Family Medicine | DX: J02.9 Acute pharyngitis, unspecified (principal) | CPT/HCPCS: 87070 ==

== ENCOUNTER 2024-10-05 10:38 | Outpatient (REF) | payer MEDICAID, SELFPAY | END 2024-10-05 10:39 | disposition home or self-care (01) | LOC: HO.HHCX 10:38 | PROVIDERS: Visit Provider Emergency Medicine | DX: S39.92XD Unspecified injury of lower back, subsequent encounter (principal) | CPT/HCPCS: 72100 ==

== ENCOUNTER → 2024-10-05 10:38 | Outpatient (BNV) | payer MEDICAID, SELFPAY | PROVIDERS: Visit Provider Radiology Diagnostic Radiology | DX: M54.50 Low back pain, unspecified (principal); S39.92XA Unspecified injury of lower back, initial encounter | CPT/HCPCS: 72100 ==

== ENCOUNTER 2024-12-13 20:21 | Emergency (ER) | payer MEDICAID, SELFPAY ==
[2024-12-13 20:31] VITALS: BP 108/73; PULSE 75; RESP 16; TEMP 36.7; O2SAT 97; BMI 26.7
--- NOTE | 2024-12-13 20:31 | ED_ITS ---
HPI - General Adult General Chief complaint: Skin/Abscess/Foreign Body Stated complaint: left forearm ? infection Time Seen by Provider: 12/13/24 22:40 Source: patient Mode of arrival: ambulatory Limitations: no limitations History of Present Illness ED Provider: DR. Lenz HPI narrative: Patient is a 29-year-old female presenting with complaint of burning and drainage to left arm patient is a [id number]. Got a new tattoo Friday then noticed redness, swelling and yellow drainage. Denies fevers. Has not been tattooed at this shop previously, first time getting colored ink. Related Data Home Medications ?Medication ?Instructions ?Recorded ?Confirmed diclofenac sodium 1 % topical gel 2 g topical pain 11/13/23 12/30/23 levonorgestrel 21 mcg/24 hr (up to intrauterine 05/10/24 8 years) 52 mg intrauterine device (Mirena) Previous Rx's ?Medication ?Instructions ?Recorded cholecalciferol (vitamin D3) 50 50 mcg PO DAILY #90 caps 11/13/23 mcg (2,000 unit) capsule terconazole 0.8 % vaginal cream 1 appful vaginal BEDTIME 3 days 05/10/24 #20 grams metronidazole 500 mg tablet 500 mg PO BID 7 days #14 tabs 05/11/24 doxycycline hyclate 100 mg tablet 100 mg PO BID #20 tabs 12/13/24 mupirocin 2 % topical ointment 1 appl topical BID #22 grams 12/13/24 Allergies Allergy/AdvReac Type Severity Reaction Status Date / Time No Known Allergies Allergy Verified 12/13/24 20:34 Review of Systems 2 Review of Systems: All other systems are reviewed and are negative Constitutional: Reports as per HPI and Reports no additional constitutional complaints Eyes: Reports as per HPI and Reports no additional eye complaints Reports system reviewed and no additional complaints, except as documented Cardiovascular: Reports as per HPI and Reports no additional cardiovascular complaints Respiratory: Reports as per HPI and Reports no additional respiratory complaints Gastrointestinal: Reports as per HPI and Reports no additional gastrointestinal complaints Genitourinary: Reports no additional female genitourinary complaints Musculoskeletal: Reports no additional musculoskeletal complaints Skin/Breast: Reports system reviewed and no additional complaints, except as docu Psychiatric: Reports no additional psychiatric complaints Endocrine: Reports no additional endocrine complaints Hematologic/Lymphatic: Reports no additional hematologic/lymphatic complaints Allergic/Immunologic: Reports no additional allergic/immunologic complaints Reports system reviewed and no additional complaints, except as documented and Reports Abnormal speech present [facility] Past Medical History Medical History Hypovitaminosis D Elevated sed rate Bilateral knee pain Bilateral hand pain Depression Seasonal allergies Surgical History No history of previous surgery Family History Family History Mother Breast cyst Arthritis Maternal Grandmother Breast cancer Arthritis Maternal Aunt Uterine cancer Maternal Grandfather Arthritis Sister Arthritis Paternal Grandfather Arthritis Paternal Grandmother Arthritis Social History Social History Household Members: Children Housing: Apartment Alcohol intake: never Patient Tobacco Use Status: Never used Tobacco Advance Directives: No Advance Directives Information Provided: Yes Do you have a plan to hurt others: No Plan Current occupational status: employed 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 Blood pressure elevated. Heart rate normal. Respiratory rate normal. Temperature normal. Oxygen saturation normal. Appearance: Alert. Oriented X3. No acute distress. Head: Normal external exam. Normocephalic. Atraumatic. No Love signs noted. No raccoon eyes noted Eyes: PERRLA. EOMI. Conjunctiva and sclera normal. Eyelids normal. ENT: TM's Normal. Pharynx normal. Uvula midline. Moist mucous membranes. No trismus noted. No drooling noted. No muffled voice noted. Neck: Normal inspection. Neck supple. FROM. No adenopathy. Thyroid Normal. No meningeal signs. No neck mass noted. CVS: Normal heart rate and rhythm. Heart sound normal. No murmurs noted. Pulses normal throughout. Respiratory: No respiratory distress. Painless inspiration. Breath sounds normal. No wheezes/rales/rhonchi noted. Chest nontender. No accessory muscle usage noted or decreased air movement noted. Abdomen: Soft and nontender. Bowel sounds normal in all 4 quadrants. No distention noted. No organomegaly noted. No visible injury noted. Back: No CVA tenderness. Full range of motion noted. Skin: Skin warm and dry. Normal skin color. Normal skin turgor. No rashes/lesions/lacerations noted. Extremities: Left forearm: Tenderness, redness, hotness around the to, no discharge, no fluctuation, neurovascularly intact. Neuro: Oriented X 3. Cranial nerve exam: II-XII are grossly intact No motor deficit. No sensory deficit. Reflexes normal. Course Course Course Narrative: This is a rapid medical exam performed by Elmo Carter NP: Additional HPI, ROS, PE not included below will be deferred to primary provider. 29-year-old female with left forearm in after having a to down 2 days ago. Plan: will check basic labs Reevaluation(s) Reevaluation #1: Left forearm cellulitis after getting a new tattoo, no abscess, no IV drug use issue, will start the patient on doxycycline and mupirocin. Time: 22:50 Medical Decision Making Differential Diagnosis Differential Diagnoses: The differential diagnosis associated with the presentation includes (Cellulitis, abscess,) Admission/Observation Consideration of admission/observation: Escalation of care including admission/observation considered Lab Data MDM Lab Attestation statement: I reviewed the patient's lab results. 12/13/24 20:55 12/13/24 20:55 Labs: Lab Results 12/13/24 Range/Units 20:55 WBC 8.0 (4.8-10.8) X10*3/uL RBC 4.14 L (4.20-5.50) X10*6/uL Hgb 12.2 (12.0-16.0) g/dl Hct 36.3 L (37.0-47.0) % MCV 87.7 (80.0-98.0) fL MCH 29.5 (27.0-33.0) pg MCHC 33.6 (31.0-35.0) g/dl RDW 12.2 (11.0-16.0) % Plt Count 259 (160-400) X10*3/uL MPV 9.1 L (9.4-12.3) fL Immature Gran % (Auto) 0.1 (0.0-0.4) % Neut % (Auto) 66.8 (45-73) % Lymph % (Auto) 22.8 (20-40) % [place] % (Auto) 9.4 (2-11) % Eos % (Auto) 0.6 (0-4) % Baso % (Auto) 0.3 (0-2) % Lymph # (Auto) 1.8 (1.2-4.9) X10*3/uL [place] # (Auto) 0.8 (0.1-1.2) X10*3/uL Eos # (Auto) 0.1 (0.0-0.4) X10*3/uL Baso # (Auto) 0.0 (0.0-0.2) X10*3/uL Abs Immat Gran (auto) 0.01 (0.00-0.03) X10*3/uL Absolute Neuts (auto) 5.4 (2.0-8.3) x10*3/uL Absolute Nucleated RBC 0.000 (0.0-0.012) X10*3/uL Nucleated RBC % (auto) 0.0 (0.0-0.2) /100WBC Sodium 141 (135-145) mmol/L Potassium 3.5 (3.3-5.1) mmol/L Chloride 109 H (96-108) mmol/L Carbon Dioxide 24 (22-29) mmol/L Anion Gap 12 (12-20) BUN 11 (9-16) mg/dL Creatinine 0.76 (0.5-1.4) mg/dL Estim Creat Clear Calc 98.3 Estimated GFR > 60 Random Glucose 103 (60-115) mg/dL Calcium 8.6 D (8.4-10.2) mg/dL Discharge Plan Discharge Clinical Impression: Cellulitis of forearm, left Patient Disposition: Home, Self-Care Prescriptions: New doxycycline hyclate 100 mg tablet 100 mg PO BID Qty: 20 0RF mupirocin 2 % ointment 1 appl topical BID Qty: 22 0RF No Action metronidazole 500 mg tablet 500 mg PO BID 7 Days Qty: 14 0RF diclofenac sodium 1 % gel 2 g topical cholecalciferol (vitamin D3) 50 mcg (2,000 unit) capsule 50 mcg PO DAILY Qty: 90 1RF Mirena 21 mcg/24 hr (8 yrs) 52 mg intrauterine device intrauterine terconazole 0.8 % cream 1 appful vaginal BEDTIME 3 Days Qty: 20 0RF Referrals: Marga Rene, [employer] MAKER [Primary Care Provider] - Stand Alone Forms: Work/School Release Print Language: Swedish
[2024-12-13 20:59] LABS: MANUAL DIFF FLAG NO
[2024-12-13 21:08] LABS: Basophils Percent Auto 0.3 % (0-2); Eosinophils Absolute Auto 0.1 X10*3/uL (0.0-0.4); Eosinophils Percent Auto 0.6 % (0-4); Hematocrit 36.3 % (37.0-47.0); Hemoglobin 12.2 g/dl (12.0-16.0); Imm Gran Abs Auto 0.01 X10*3/uL (0.00-0.03); Imm Gran Pct Auto 0.1 % (0.0-0.4); Lymphocytes Absolute Auto 1.8 X10*3/uL (1.2-4.9); Lymphocytes Percent Auto 22.8 % (20-40); Mean Corpuscular HGB Conc 33.6 g/dl (31.0-35.0); Mean Corpuscular Hemoglobin 29.5 pg (27.0-33.0); Mean Corpuscular Volume 87.7 fL (80.0-98.0); Mean Platelet Volume 9.1 fL (9.4-12.3); Monocytes Absolute Auto 0.8 X10*3/uL (0.1-1.2); Monocytes Percent Auto 9.4 % (2-11); Neutrophils Absolute Auto 5.4 x10*3/uL (2.0-8.3); Neutrophils Percent Auto 66.8 % (45-73); Platelet Count 259 X10*3/uL (160-400); Red Blood Count 4.14 X10*6/uL (4.20-5.50); Red Cell Distribution Width 12.2 % (11.0-16.0)
[2024-12-13 21:20] LABS: Anion Gap 12 (12-20); Blood Urea Nitrogen 11 mg/dL (9-16); Calcium 8.6 mg/dL (8.4-10.2); Carbon Dioxide 24 mmol/L (22-29); Chloride 109 mmol/L (96-108); Creatinine Clr Calc Pharmacy 98.3; Estimated Glomerular Filt Rate > 60; Glucose Random 103 mg/dL (60-115); Potassium 3.5 mmol/L (3.3-5.1); Sodium 141 mmol/L (135-145)
[2024-12-13 22:11] VITALS: BP 102/67; PULSE 78; RESP 16; TEMP 36.8; O2SAT 99
--- OUTSIDE RECORDS SUMMARY | 2024-12-13 22:26 | XMS_ITS | Encounter Summary ---
Author Organization [employer] Address [address] [place] [address] Care Team Providers Care Strand And Binder Controller Name Role Phone aMrga Rene Primary Care Provider [phone] Encounter Details Date Type Department Care Team (Latest Contact Info) Description 10/29/2021 Abstract [facility] CONVERSIONS Dental, Provider, DDS Social History Tobacco Use Types Packs/Day Years Used Date Smoking Tobacco: Never Assessed Comments Unknown Sex and Gender Information Value Date Recorded Sex Assigned at Female 06/24/2022 10:17 AM EDT Legal Sex Female 10:17 AM EDT Gender Identity Female 06/24/2022 10:17 AM EDT Sexual Orientation Straight 06/24/2022 10 :17 AM EDT documented as of this encounter Plan of Treatment Not on file documented as of this encounter Visit Diagnoses Not on filedocumented in this encounter Care Teams Strand And Binder Controller Relationship Specialty Start Date End Date Marga Rene ANP [address] [place] [id number] PCP - General Family Medicine 05/15/21 documented as of this encounter
--- OUTSIDE RECORDS SUMMARY | 2024-12-13 22:26 | XMS_ITS | Encounter Summary ---
Author Organization [employer] Address [address] [place] [address] Care Team Providers Care Ribbon Lap Machine Tender Name Role Phone Marga Rene SATISH Primary Care Provider [phone] Reason for Visit * Reason Comments Med Change Request Encounter Details Date Type Department Care Team ([facility] st Contact Info) Description 09/28/2024 Refill [facility] [address] [place], [place] [id number] Christina Draper MD [address] [place], [place] [id number] Acute bilateral low back pain without sciatica Social History Tobacco Use Types Packs/Day Years Used Date Smoking Tobacco: Never Passive Smoke Exposure: Never Smokeless Tobacco: Never Alcohol Use Standard Drinks/Week Comments Not Currently 0 (1 standard drink = 0.6 oz pur e alcohol) Depression Answer Date Recorded Patient Health Questionnaire-9 Score 2 08/14/2023 Patient Health Questionnaire-9 Score 2 08/14/2023 Last PHQ-9: Questionnaire Data Not on file 1 10/15/2022 Housing Stability Answer Date Recorded What is your housing situation today? I have fadi [place] 06/30/[address] you li ve. Do you have problems with any of the following? None of the above 06/30/2023 Food Insecurity Answer Date Recorded Within the past 12 months, y ou worried that your food would run out before you got money to buy more: Never True 06/30/2023 Within the past 12 months,th e food you bought just didn't last and you didn't have enough money to get more: Never True 01/2023 Transportation Answer Date Recorded In the past 12 months, has l ack of transportation kept you from medical appts, meetings, work or from getting things needed for daily living? Yes, it has kept me from medical appointments or getting medications. 08/14/2023 Utilities Answer Date Recorded In the past 12 months, has t he electric, gas, oil or water company threatened to shut off services in your home? No 06/30/2023 Depression Answer Date Recorded Patient Health Questionnaire-2 Score 2 08/14/2023 Comments Unknown Sex and Gender Information Value Date Recorded Sex Assigned at Female 06/24/2022 10:17 AM EDT Legal Sex Female 10:17 AM EDT Gender Identity Female 06/24/2022 10:17 AM EDT Sexual Orientation Straight 06/24/2022 10 :17 AM EDT documented as of this encounter Miscellaneous Notes * Telephone Encounter - Christina Draper MD - 09/29/2024 12:33 PM EST All set, new rx sent documented in this encounter Plan of Treatment Not on file documented as of this encounter Visit Diagnoses Diagnosis Acute bilateral low back pain without sciatica documented in this encounter Additional Health Concerns Assessment Noted Time PHQ-9 Depression Total Score: 2 08/14/20 23 9:05 AM EST documented as of this encounter Care Teams Ribbon Lap Machine Tender Relationship Specialty Start Date End Date Marga Rene ANP [address] [place] [id number] PCP - General Family Medicine 05/15/21 documented as of this encounter
--- OUTSIDE RECORDS SUMMARY | 2024-12-13 22:26 | XMS_ITS | Clinical Summary ---
Author Organization [employer] Address [address] [facility] [address] [place] [address] Care Team Providers Care Industry Segment Specialist Name Role Phone Marga Rene SATISH Primary Care Provider [phone] Allergies No known active allergies Medications medroxyPROGEST ERone (Depo-Provera) 150 MG/ML injection INJECT 1ML INTRAMUSCULARLY EVERY 12 WEEKS 12/11/19 23 Active loratadine (Claritin) 10 MG tablet TAKE 1 TABLET BY MOUTH EVERY DAY 90 tablet 12/21/19 23 Active Diclofenac Sodium 1 % gelIndications :Arthralgia of both hands APPLY 2 GRAMS TOPICALLY IN THE MORNING AND AT BEDTIME IF NEEDED FOR PAIN 100 g 12/05/19 24 Active fluticasone (Flonase) 50 MCG/ACT nasal sprayIndicatio ns:Sore throat ADMINISTER 2 SPRAYS INTO EACH NOSTRIL ONCE PER DAY. 32 mL 05/20/20 24 Active cyclobenzaprin e (Flexeril) 10 MG tabletIndicati ons:Acute bilateral low back pain without sciatica One tab po at bedtime prn pain of muscles, do not drive with medicaion 20 tablet 09/28/19 25 Active Lidocaine 5 % creamIndicatio ns:Acute bilateral low back pain without sciatica Apply topically bid 30 g 3 09/28/19 25 Active lidocaine (Xylocaine) 5 % ointment Apply topically 2 times daily. 30 g 1 09/29/19 25 026 Active Active Problems Problem Noted Date Diagnosed Date Sore throat 02/17/2024 Assessment & Plan (02/17/2024 2:46 PM EDT): -maybe URI or seasonal allergies -Rapid COVID-19, Influenza and Strep all negative today -advised increase fluid intake and rest -Sore throat: salt water gargles, drink tea with honey & lemon, suck lozenge -advised to take loratadine and Flonase as ordered -come to walk-in center if develop fever or symptoms worsen -work note provided Encounter for preventive health examination 07/26 Assessment & Plan (08/14/2023 9:58 AM EST): Discussed with patient re increase fresh fruit and vegetable intake. Counseled re moderate exercise as tolerated, up to 20min/d Patient feels safe at home. PAP smear up to date, next one due 2025 Eye exam generally up to date, needs glaucoma testing. Will refer Labs to be ordered Vaccinations agreed to Covyash and flue IZ today here in the clinic. Will obtain IZ titers. 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 Assessment & Plan (08/14/2023 9:57 AM EST): Most likely related to chronic ear infections Refer to audiology testing FU PCP 3 m Cyst of ovary 04/06/2013 Resolved Problems Problem Noted Date Diagnosed Date Resolved Date Strep pharyngitis 12/17/2022 05/25/2024 Overview (12/17/2022): -clinic picture highly suspicious for strep pharyngitis -formal culture sent to lab -amoxicillin 500mg bid for 10 days, can discontinue if strep send out is negative -droplet precautions discussed -supportive care discussed -ER precautions given Assessment & Plan (12/17/2022 9:32 AM EDT): -clinic picture highly suspicious for strep pharyngitis -formal culture sent to lab -amoxicillin 500mg bid for 10 days, can discontinue if strep send out is negative -droplet precautions discussed -supportive care discussed -ER precautions given Encounters Date Type Department Care Team Description 12/13/2024 Orders Only GENERIC EXTERNAL DATA DEPARTMENT Provider, Generic External Data 11/05/2024 Population Health Risk Score [facility] () Department [address] [id number] Provider, Population Health Generic 10/05/2024 9:40 AM EST Office Visit [facility] [address] [place] [address] Abhijeet Flores MD Back injury, subsequent encounter (Primary Dx) 09/29/[address] [facility] [address] [place] [address] Christina Draper MD 09/28/2024 11:00 AM EST Office Visit [facility] [address] [address] Christina Draper MD Acute bilateral low back pain without sciatica (Primary Dx) 09/28/[address] [facility] [address] [address] Christina Draper MD Acute bilateral low back pain without sciatica from Last 3 Months Immunizations Name Administration Dates Next Due DTaP 03/03/1998, 7,06/02/1997,03/30 HPV, Quadrivalent 01/02/2010,12/01/2008,09/15/19 08 Hep B, Adolescent or Pediatric 08/17/1997,1996,03/30/1997 Hib (HbOC) 03/03/1998, 7,06/02/1997,03/30 IPV 07/21/2000, 7,06/02/1997,03/30 Influenza injectable quadriv alent preservative free 08/14/2023,05/19/2014 Influenza, IIV3, injectable 07/04/2011,1 09/27/2008,08/12/2008,09/16,09/13/2005 MMR 07/21/2000,08/17/1997 Meningococcal MCV4P ACYW-135 02/18/2013,09/15/19 08 Pfizer Covid-19 Vaccine 12+ 08/14/2023 Tdap 09/22/2017, 4,09/15/2007,07/21 Varicella 01/02/2010,03/03/1998 Social History Tobacco Use Types Packs/Day Years Used Date Smoking Tobacco: Never Passive Smoke Exposure: Never Smokeless Tobacco: Never Tobacco Cessation:Counseling Given: Not Answered Alcohol Use Standard Drinks/Week Comments Not Currently [...] Orientation Straight 06/24/2022 10 :17 AM EDT Last Filed Vital Signs Vital Sign Reading Time Taken Comments Blood Pressure 120/67 10/05/2024 9:58 AM EST Pulse 86 10/05/2024 9:58 AM EST Temperature 36.1 ??C (97 ??F) 10/05/2024 9:58 AM EST Respiratory Rate 18 10/05/2024 9:58 AM EST Oxygen Saturation 98% 10/05/2024 9:58 AM EST Inhaled Oxygen Concentration - - Weight 67.6 kg (149 lb) 10/05/2024 9:58 AM EST Height 157.5 cm (5' 2 ) 05/25/2024 9:47 AM EDT Body Mass Index 27.25 05/25/2024 9:47 AM EDT Plan of Treatment Health Maintenance Due Date Last Done Comments HIV Screening 1996 Alcohol/Substance Use Screening 2008 Family Planning (PISQ) 2011 COVID-19 Vaccine ( season) 2024 08/14/2023, 08/06/2021, 11/27/2020, Additional history exists Influenza Vaccine (#1) 2024 , 05/19/2014, 07/04/2011, Additional history exists Depression Screening 08/14/2024 08/14/2023, 08/14/20 23 SDOH Screening 08/14/2024 08/14/2023 Tobacco Screening 10/05/2025 10/05/2024 Pap Smear 03/08/2027 03/08/2024, 10/27/2020 DTaP/Tdap/Td Vaccines (10 - Td or Tdap) 09/22/2027 09/22/2017, 06/22/2014, 05/19/2014, Additional history exists Zoster Vaccines (1 of 2) 2046 RSV Patients and Patients Aged 60 years or older (1 - 1-dose 75+ series) 2071 Hepatitis B Vaccines Completed 08/17/1997, 06/02/1997, 03/30/1997 HIB Vaccines Completed 03/03/1998, 07/26, 06/02/1997, Additional history exists IPV Vaccines Completed 07/21/2000, 07/26, 06/02/1997, Additional history exists HPV Vaccines Completed 01/02/2010, 040 04/2009, 09/15/2007 Meningococcal Vaccine Completed 02/18/2013, 008 Hepatitis C Screening Completed 10/14/2023, 023 Hepatitis A Vaccines Aged Out No long er eligible based on patient's age to complete this topic Pneumococcal Vaccine: Pediatrics (0 to 5 Years) and At-Risk Patients (6 to 49) Years) Aged Out No longer eligible based on patient's age to complete this topic RSV under 20 months Aged Out No longe r eligible based on patient's age to complete this topic Rotavirus Vaccines Aged Out No longer eligible based on patient's age to complete this topic Procedures Procedure Name Priority Date/Time Associated Diagnosis Comments BASIC METABOLIC PANEL Routine 12/13/2024 8:55 PM EDT CBC WITH AUTO DIFFERENTIAL Routine 12/13/2024 8:55 PM EDT XR LUMBAR SPINE 2-3 VIEWS Routine 10/05/2024 10:38 AM EST Back injury, subsequent encounter THINPREP?? IMAGING PAP REFL HPV MRNA(IF ASCUS,ASC-H,LSIL) Routine 03/08/2024 2:47 PM EDT HEPATITIS PANEL, GENERAL Routine 10/14/2023 2:23 PM EST from Last 3 Months or Most Recently Relevant to Health Maintenance Results * (ABNORMAL) CBC auto differential (12/13/2024 8:55 PM EDT) White Blood Count 8.0 4.8 - 10.8 X10*3/uL [facility] Red Blood Count 4.14(L) 4.20 - 5.50 X10*6/uL [facility] Hemoglobin 12.2 12.0 - 16.0 g/dl [facility] Hematocrit 36.3(L) 37.0 - 47.0 % [facility] Mean Corpuscular Volume 87.7 80.0 - 98.[address] [facility] Mean Corpuscular Hemoglobin 29.5 27.0 - 33.[address] [facility] Mean Corpuscular HGB Conc 33.6 31.0 - 35.0 g/dl [facility] Red Cell Distribution Width 12.2 11.0 - 16.0 % [facility] Platelet Count 259 160 - 400 X10*3/uL [facility] Mean Platelet Volume 9.1(L) 9.4 - 12.[address] [facility] Neutrophils Percent Auto 66.8 45 - 73 % [facility] Imm Gran Pct Auto 0.1 0.0 - 0.4 % [facility] Lymphocytes Percent Auto 22.8 20 - 40 % [facility] Monocytes Percent Auto 9.4 2 - 11 % [facility] Eosinophils Percent Auto 0.6 0 - 4 % [facility] Basophils Percent Auto 0.3 0 - 2 % [facility] NRBC Pct Auto 0.0 0.0 - 0.2 /100WBC [facility] Neutrophils Absolute Auto 5.4 2.0 - 8.3 x10*3/uL [facility] Imm Gran Abs Auto 0.01 0.00 - 0.03 X10*3/uL [facility] Lymphocytes Absolute Auto 1.8 1.2 - 4.9 X10*3/uL [facility] Monocytes Absolute Auto 0.8 0.1 - 1.2 X10*3/uL [facility] Eosinophils Absolute Auto 0.1 0.0 - 0.4 X10*3/uL [facility] Basophils Absolute Auto 0.0 0.0 - 0.2 X10*3/uL [facility] NRBC Abs Auto 0.000 0.0 - 0.012 X10*3/uL [facility] 12/13/2024 8:55 PM EDT 12/13/2024 8:58 PM EDT us Generic External Data Provider LAB BLOOD ORDERAB LES Final Result Performing Organization Address City/[facility]/ZIP Co de Phone Number [facility] [address] [place] [address] [phone] * (ABNORMAL) Basic Metabolic Panel (12/13/2024 8:55 PM EDT) Sodium 141 135 - 145 mmol/L [facility] Potassium 3.5 3.3 - 5.1 mmol/L [facility] Chloride 109(H) 96 - 108 mmol/L [facility] Carbon Dioxide 24 22 - 29 mmol/L [facility] Anion Gap 12 12 - [address] [facility] Urea Nitrogen (BUN) 11 9 - 16 mg/dL [facility] Creatinine, Serum 0.76 0.5 - 1.4 mg/dL [facility] Creatinine Clr Calc Pharmacy 98.[address] [facility] Comment:Provided height and weight: 157.48 cm,66.224 kg.eGFR (calculated from the MDRD study equation) and eCrCl(calculated from the Cockcroft-Gault equation) are based ondifferent parameters and may not yield comparable results.If eCrCl result is absurd, please check patient'sheight/weight. Estimated Glomerular Filt Rate >[address] [facility] Comment:Chronic Kidney Disea se: Estimated GFR < 60 mL/min/1.83r9Vgctug Kidney Disease: Estimated GFR < 15 mL/min/1.73m2 Glucose 103 60 - 115 mg/dL [facility] Calcium 8.6 8.4 - 10.2 mg/dL [facility] 12/13/2024 8:55 PM EDT 12/13/2024 8:58 PM EDT us Generic External Data Provider LAB BLOOD ORDERAB LES Final Result Performing Organization Address City/[facility]/ZIP Co de Phone Number [facility] [address] [place] [address] [phone] * XR Lumbar Spine 2-3 Views (10/05/2024 10:38 AM EST) Anatomical Region Laterality Modality Spine, L-spine Radiographic Kourtney ging 10/05/2024 10:3 8 AM EST Narrative 10/05/2024 11:12 AM EST ?[facility] ?[address] ?[place] [address] ?XRay Report ? Signed ? Patient: Wilmer,Jetsabeneil ?MR#: [id number] ?? [id number] ? : 1995 ?Acct:[id number] ? Age/Sex: 29 / F ?ADM Date: 10/05/24 ? Loc: HO.HHCX ? Attending Dr: Abhijeet Flores MD ? Ordering Physician: ABHIJEET FLORES MD ?? Date of Service: 10/05/24 ?? Procedure(s): XR lumbar spine 2-3V ?? Accession Number(s): [id number] ? cc: ABHIJEET FLORES MD ? EXAMINATION: ?? XR LUMBOSACRAL SPINE ? CLINICAL INFORMATION: ?? 1 week ago slipped on ice, fell on back. ??pain is in right lower back ? COMPARISON: ?? None available. ? TECHNIQUE: ?? Three views of the lumbosacral spine. ? FINDINGS: ?? No acute cortical disruption. No gross malalignment. No lytic or ?? blastic lesions. S-shaped curvature of the lumbar spine, mild. ?? T-shaped contraceptive device overlapping the coccyx is. ? XR/XR lumbar spine 2-3V ?? IMPRESSION: ?? No acute fracture or listhesis or gross abnormality, lumbar spine. ? Electronically signed by: ??Desmond Panda MD ??10/05/2024 11:09 AM ?? EST RP ? Dictated By: ?Desmond Gunn MD ? Signed By: ?<Electronically signed by Desmond Ornelas MD in OV> ? 10/05/24 1109 ? DD/ 1038 ? TD/TT: 10/05/24 1100 ? Patient Insurance Clerk: ? Procedure Note Madiha, Image - 10/05/2024 [facility] [address] [facility] [place] [address] XRay Report Signed Patient: Tom GuillenMR#: [id number] : 1995Acct:[id number] Age/Sex: 29 / FADM Date: 10/05/24 Loc: HO.HHCX Attending Dr: Abhijeet Flores MD Ordering Physician: ABHIJEET FLORES MD Date of Service: 10/05/24 Procedure(s): XR lumbar spine 2-3V Accession Number(s): [id number] cc: ABHIJEET FLORES MD EXAMINATION: XR LUMBOSACRAL SPINE CLINICAL INFORMATION: 1 week ago slipped on ice, fell on back. pain is in right lower back COMPARISON: None available. TECHNIQUE: Three views of the lumbosacral spine. FINDINGS: No acute cortical disruption. No gross malalignment. No lytic or blastic lesions. S-shaped curvature of the lumbar spine, mild. T-shaped contraceptive device overlapping the coccyx is. XR/XR lumbar spine 2-3V IMPRESSION: No acute fracture or listhesis or gross abnormality, lumbar spine. Electronically signed by: Desmond Panda MD 10/05/2024 11:09 AM EST Dictated By: Desmond Gunn MD Signed By: <Electronically signed by Desmond Ornelas MDin OV> 10/05/24 1109 DD/ 1038 TD/TT: 10/05/24 1100 Patient Insurance Clerk: Abhijeet Flores MD IMG XR PROCEDURES Final Result * ThinPrep?? Imaging Pap Refl HPV mRNA(if ASCUS,ASC-H,LSIL,HSIL,CHRIS)Refl Genotype (03/08/2024 2:47 PM EDT) HPV nRNA E6/E7 [facility] HPV 16,18/45 [facility] SOURCE: SEE NOTE [facility] Comment:None given Report Status: [facility] Clinical Information: SEE NOTE [facility] Comment:None given LMP: SEE NOTE [facility] Comment:NONE GIVEN Prev. PAP: SEE NOTE [facility] Comment:NONE GIVEN Prev. BX: SEE NOTE [facility] Comment:NONE GIVEN Statement Of Adequacy: SEE NOTE [facility] Comment:Satisfactory for laureen luation.Endocervical/transformation zone component absent. General Categorization: [facility] Interpretation/Result: SEE NOTE [facility] Comment:Cytology Results: Ne gative for intraepitheliallesion or malignancy. Cytology Comment SEE NOTE [facility] Comment:This Pap test has be en evaluated with computerassisted technology. Stud Setter: SEE NOTE [facility] Comment:[facility], CT (ASCP)CT Scr eening Location: [facility] [address]lide preparation performed at: [employer] [id number] No. [id number] Review Stud Setter: [facility] Pathologist [facility] PAP Infection [facility] See Note SEE NOTE [facility] Comment:EXPLANATORY NOTE:The Pap is a screening test for cervical cancer. It isnot a diagnostic test and is subject to false negativeand false positive results. It is most reliable when asatisfactory sample, regularly obtained, is submittedwith relevant clinical findings and history, and whenthe Pap result is evaluated along with historic andcurrent clinical information.THIS TEST WAS PERFORMED AT:[facility] [address] [id number] MERATI,MD 03/08/2024 2:47 PM EDT 03/09/2024 3:23 PM EDT Narrative [facility] - 03/16/2024 6:57 PM EDT SEE SCANNED RESULTS IN EMR us Generic External Data Provider LAB CYTOLOGY AMOLE ANNEMARIE Final Result [facility] [address] [place] [address] [phone] * Hepatitis Panel, General (10/14/2023 2:23 PM EST) Hepatitis A IgM Nonreactive Nonreactive [facility] Comment:IgM antibodies to JIN V not detected; does not exclude earlyacute or recovered HAV infection. ~Hepatitis B Surface Antibody NONREACTIVE Nonreactive [facility] Comment:Nonreactive: < 8.00 mIU/mL Hepatitis B Core Antibody Nonreactive Nonreactive [facility] Hepatitis C Antibody Nonreactive Nonreactive [facility] Comment:Antibodies to HCV no t detected; does not exclude early acuteHCV infection. Hepatitis B Surface Ag Negative Negative [facility] 10/14/2023 2:23 PM EST 10/14/2023 2:23 PM EST us Generic External Data Provider LAB BLOOD ORDERAB LES Final Result Performing Organization Address City/State/[facility] Co de Phone Number [facility] [address] [place] [address] [phone] from Last 3 Months or Most Recently Relevant to Health Maintenance Insurance [facility] C3 GENERIC COMMERCIAL on file Care Teams Industry Segment Specialist Relationship Specialty Start Date End Date Marga Rene ANP [address] [place] [phone] PCP - General Family Medicine 05/15/21
[2024-12-13] MEDS: Doxycycline Monohydrate 100 MG CAPSULE PO (23:32)
--- NOTE | 2024-12-13 23:36 | PC.NURSE ---
Pt a&ox4, no signs of distress Pt medicated per mar Pt ambulates with a steady gait. Plan of care ongoing.
[2024-12-13 23:37] VITALS: BP 102/67; PULSE 78; RESP 16; TEMP 36.8; O2SAT 99
== END 2024-12-13 23:39 | disposition home or self-care (01) ==
PROVIDERS: Registered Nurse Emergency; Emergency Provider Emergency Medicine; PCP Nurse Practitioner Primary Care
DX: L03.114 Cellulitis of left upper limb (principal); Z79.899 Other long term (current) drug therapy
CPT/HCPCS: 36415; 80048; 85025; 99283; 99284

== ENCOUNTER 2025-02-22 08:41 | Outpatient (AMB) | payer OTHER, MEDICAID, SELFPAY ==
--- NOTE | 2025-02-22 08:43 | MHC.OFFVIS ---
Vital Signs 02/22/25 08:44 Height 5 ft 2 in Weight 147 lb BMI 26.9 BP 110/76 Intake Visit Reasons: Tubal consult Intake Note: Patient here for tubal consult, have 2 children Liquor Inspector Required: No Information Interpreted: non-clinical & clinical Accompanied by: Self / Same As Patient Allergies No Known Allergies Allergy (Verified 02/22/25 08:47) Is last menstrual period known: No (mirena) HPI Comments Details: Presenting requesting permanent contraception. The patient has completed her family and requesting permanent sterilization The patient is has Mirena IUD Last Pap smear was in 03/17 was negative [facility] Medical History Hypovitaminosis D Elevated sed rate Bilateral knee pain Bilateral hand pain Depression Seasonal allergies Surgical History No history of previous surgery Family History Mother Breast cyst Arthritis Maternal Grandmother Breast cancer Arthritis Maternal Aunt Uterine cancer Maternal Grandfather Arthritis Sister Arthritis Paternal Grandfather Arthritis Paternal Grandmother Arthritis Social History Household Members: Children Housing: Apartment Alcohol intake: never Patient Tobacco Use Status: Never used Tobacco Current occupational status: employed 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 Sexual orientation: Straight/Heterosexual Gender identity: Female Female Reproductive History Menstrual Age of Menarche: 15 Review of Systems Const All systems reviewed & are unremarkable except as noted in HPI and below Card Reports as per HPI, Reports no additional complaints, Denies chest pain, Denies chest pain with activity, Denies dyspnea and Denies dyspnea on exertion Resp Reports as per HPI, Reports no additional complaints, Denies cough, Denies pain on inspiration, Denies pain with cough, Denies dyspnea, Denies dyspnea on exertion and Denies wheezing GI Reports as per HPI, Reports no additional complaints, Denies abdominal pain, Denies change in bowel habits, Denies change in stool character, Denies early satiety, Denies dyspepsia, Denies heartburn, Denies nausea and Denies vomiting Reports as per HPI, Denies hematuria and Denies dysuria Aller/Immun Denies wheezing Physical Exam Vital Signs: Last Vital Signs BP 110/76 02/22/25 08:44 BMI result Body Mass Index 26.9 Const General: cooperative, healthy appearing and comfortable Chest Chest palpation & inspection: normal inspection of the chest and normal palpation of entire chest wall Resp Effort & Inspection: normal respiratory effort Auscultation: clear to auscultation bilaterally Percussion: percussion normal Cardio Palpation: normal PMI Rate: regular rate Rhythm: regular rhythm Heart sounds: no murmurs and no rubs Peripheral pulses: Peripheral pulses 2+ throughout GI Inspection: Yes normal to inspection Palpation (GI): Soft to palpation, nontender, no guarding, not rigid and No hepatosplenomegaly present Percussion: Yes normal to percussion Auscultation: normal bowel sounds Rectal Exam - Female: deferred Assessment & Plan Assessment & Plan (1) Family planning: Code(s): Z30.09 - Encounter for other general counseling and advice on contraception Category: Social Hx Plan: Discussed with the patient the different options of control including but not limited to, control pills, Nuvaring, DMPA and Nexplanon, Copper and Progesterone IUD, Sterilization, & vasectomy. A more detailed discussion about the pros and cons of each were discussed with the pt. The patient elected to go with tubal sterilization. Different techniques were discussed with the patient including laparoscopic bilateral fallope ring application, bipolar cauterization of Fallopian tubes & bilateral salpingectomy with benefits of reducing ovarian cancer (mentioned to the patient that currently this is the recommended procedure for sterilization). Discussed with the patient the likelihood of success, the failure rate and risk of ectopic , irreversibility of the procedure , regret rate and complications during procedure including but not limited to: Inability to perform the procedure for a variety of technical reasons, bleeding, infection, possible need for blood transfusion with all its risks, risk exposure HIV Hepatitis B and C, anesthesia complications, possible uterine perforation, injury to bladder, bowel, ureter, blood vessel, vagina by way of perforation requiring a second operation to repair fistula, major surgery requiring colostomy, possible laparoscopy, laparotomy or hysterectomy, possible hernia from the incisions, thrombosis, possible ,? tubal , . Laparoscopic bilateral sterilization using bilateral cauterization possible bilateral salpingectomies scheduled. Instructions given the patient to schedule Mirena IUD removal day prior to surgery and to stay NPO after midnight prior to the scheduled procedure date. All questions answered. The patient verbalized understanding and signed the consent. Coding Level of Care Code Est Pt Level 3 (68295) Diagnoses Family planning Z30.09
[2025-02-22 08:44] VITALS: BP 110/76; BMI 26.9
--- OUTSIDE RECORDS SUMMARY | 2025-02-22 08:51 | XMS_ITS | Encounter Summary ---
Author Organization [employer] Address [address] [place] [address] Care Team Providers Care End Maker Name Role Phone Rene Marga COVARRUBIAS Primary Care Provider [phone] Reason for Visit * Reason Comments Med Change Request Encounter Details Date Type Department Care Team ([facility] st Contact Info) Description 09/28/2024 Refill [facility] [address] [place] [address] Christina Draper MD [address] [place], [place] [phone] Acute bilateral low back pain without sciatica [...] documented as of this encounter Care Teams End Maker Relationship Specialty Start Date End Date Marga Rene ANP [address] [place] [phone] PCP - General Family Medicine 05/15/21 documented as of this encounter
== END 2025-02-22 09:49 | disposition home or self-care (01) ==
LOC: HO.HWS 08:42
PROVIDERS: PCP Nurse Practitioner Primary Care; Visit Provider Obstetrics & Gynecology
DX: Z30.09 Encounter for other general counseling and advice on contraception (principal)
CPT/HCPCS: 99213

== ENCOUNTER 2025-06-14 12:52 | Outpatient (AMB) | payer OTHER, MEDICAID, SELFPAY ==
--- NOTE | 2025-06-14 12:56 | MHC.OFFVIS ---
Vital Signs 06/14/25 13:02 Height 5 ft 2 in BP 110/56 L Intake Visit Reasons: vaginal discharge/ ? iud removal Intake Note: pt wants STD testing. Wants IUD removed due to increase in cramps pt c/o vaginal discharge and odor Disability Hearing Officer: Disability Hearing Officer Present (Rachel) Allergies No Known Allergies Allergy (Verified 06/14/25 13:00) HPI Comments Details: Patient is here today with concerns of clumpy white discharge and odor, pelvic pain onset 1 week ago. No dysuria or urinary symptoms. She has also concerns at she has frequent HSV outbreaks diagnose years ago experiencing 2 episodes of month has not had treatment for her symptoms. She was interested in IUD removal, uncertain if she would do OCPs. Had a tubal ligation consult in the past and was told she was too young and would have regrets. 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 Sexual orientation: Straight/Heterosexual Gender identity: Female Female Reproductive History Menstrual Age of Menarche: 15 Review of Systems Const All systems reviewed & are unremarkable except as noted in HPI and below Physical Exam Vital Signs: Last Vital Signs BP 110/56 L 06/14/25 13:02 Const General: cooperative, healthy appearing and no acute distress Orientation/consciousness: patient oriented x3 GI Inspection: Yes normal to inspection Palpation (GI): Soft to palpation and Other GI palpation findings present (Nontender) Rectal Exam - Female: visual inspection normal General: Yes bladder normal to palpation External Female Exam: normal appearance of the urethra Speculum Exam - Vagina: normal appearance of the vagina, normal palpation and normal vaginal discharge Speculum Exam - Cervix: normal appearance of the cervix, normal palpation and Other cervical findings present (IUD strings at the os) Bimanual exam- vagina & uterus: normal bimanual exam, normal palpation, uterine size normal, bladder normal to palpation, normal palpation, uterine shape normal and non-tender Bimanual Exam- Adnexa, other: normal adnexae Neuro General: patient oriented x3 Results AMB Urinalysis, Automated UA Leukoctes 0 Hilary/uL Last Edit by Janet Ozuna Bruno on 06/14/25 13:49 UA Nitrite Negative Last Edit by Janet Ozuna [facility] on 06/14/25 13:49 UA Urobilinogen 0.5 mg/dL Last Edit by Janet Ozuna [facility] on 06/14/25 13:49 UA Protein 0.5 mg/dL Last Edit by Janet Ozuna [facility] on 06/14/25 13:49 UA pH 7.0 Last Edit by Janet Ozuna [facility] on 06/14/25 13:49 UA Blood 0 Jonathan/uL Last Edit by Janet Ozuna [facility] on 06/14/25 13:49 UA Specific [place] 1.015 Last Edit by Janet Ozuna [facility] on 06/14/25 13:49 UA Ketone Negative Last Edit by Janet Ozuna [facility] on 06/14/25 13:49 UA Bilirubin 0 mg/dL Last Edit by Janet Ozuna [facility] on 06/14/25 13:49 UA Glucose 0 mg/dL Last Edit by Janet Ozuna [facility] on 06/14/25 13:49 Results Reviewed Results Reviewed: Laboratory Last Values Urine pH (Auto) 7.0 06/14/25 13:49 Specific [place] (Auto) 1.015 06/14/25 13:49 Urine Protein (Auto) 0.5 mg/dL 06/14/25 13:49 Glucose (UA)(Auto) 0 mg/dL 06/14/25 13:49 Urine Ketones (Auto) Negative 06/14/25 13:49 Urine Blood (Auto) 0 Jonathan/uL 06/14/25 13:49 Urine Nitrite (Auto) Negative 06/14/25 13:49 Urine Bilirubin (Auto) 0 mg/dL 06/14/25 13:49 Urine Urobilinogen (Auto) 0.5 mg/dL 06/14/25 13:49 Leukocyte Esterase (Auto) 0 Hilary/uL 06/14/25 13:49 Assessment & Plan Assessment & Plan (1) Pelvic pain: Code(s): R10.2 - Pelvic and perineal pain Category: Medical Plan Discuss workup per pelvic pain to include GC chlamydia, urine dip and pelvic ultrasound. Reviewed options for control with visual guidelines of the [facility] efficacy data. Follow up pending pelvic ultrasound and lab results. Plan further discussion of control options at her next visit. Advised to report any increase in pain or concerns. Counseled regarding options for HSV treatment, recommend suppression therapy for now. The patient expressed understanding and agreement with the plan of care. All of her questions and concerns were addressed to the best of my ability. This note is constructed using voice recognition software. While every effort has been made to ensure accuracy, fondant machine operator errors may have been included. Orders: Orders US pelvic and transvaginal Today R10.2 - Pelvic and perineal pain Bacterial Vaginosis Panel Today N89.8 - Other specified noninflammatory disorders of vagina CT NG by PCR Vag/Cerv Today N89.8 - Other specified noninflammatory disorders of vagina AMB Urinalysis Automated Today R10.2 - Pelvic and perineal pain Medications: New valacyclovir (Valtrex) take one dose daily 500 mg PO .qd 90 tabs 1RF antiviral 90 days Coding Level of Care Code Est Pt Level 3 (17952) Diagnoses Pelvic pain R10.2
[2025-06-14 13:02] VITALS: BP 110/56
--- OUTSIDE RECORDS SUMMARY | 2025-06-14 16:31 | XMS_ITS | Encounter Summary ---
Author Organization [employer] Address [address] [facility] 7[address] [place] [address] Care Team Providers Care Bell Staff Name Role Phone Marga Rene Primary Care Provider [phone] Encounter Details Date Type Department Care Team (Latest Contact Info) Description 10/29/2021 Abstract [facility] CONVERSIONS Dental, Provider, DDS Social History Tobacco Use Types Packs/Day Years Used Date Smoking Tobacco: Never Assessed Comments Unknown Sex and Gender Information Value Date Recorded Sex Assigned at Female 06/24/2022 10:17 AM EDT Legal Sex Female 10:17 AM EDT Gender Identity Female 06/24/2022 10:17 AM EDT Sexual Orientation Straight 06/24/2022 10 :17 AM EDT documented as of this encounter Plan of Treatment Upcoming Encounters Date Type Department Care Team (Late st Contact Info) Description 07/28/2025 9:30 AM EST Office Visit [facility] MEDICINE [address] [place] [address] Marga Rene ANP [address] [place] [address] documented as of this encounter Visit Diagnoses Not on filedocumented in this encounter Care Teams Bell Staff Relationship Specialty Start Date End Date Marga Rene ANP [address] [place] [address] PCP - General Family Medicine 05/15/21 documented as of this encounter
--- OUTSIDE RECORDS SUMMARY | 2025-06-14 16:31 | XMS_ITS | Encounter Summary ---
Author Organization [employer] Address [address] [facility] [address] [place] [address] Care Team Providers Care Solar Installation Technician Name Role Phone Rene Marga COVARRUBIAS Primary Care Provider [phone] Reason for Visit * Reason Comments Med Change Request Encounter Details Date Type Department Care Team ([facility] st Contact Info) Description 09/28/2024 Refill [facility] [address] [place] [address] Christina Draper MD [address] [place], [place] [phone] Acute bilateral low back pain without sciatica [...] documented in this encounter Plan of Treatment Upcoming Encounters Date Type Department Care Team (Late st Contact Info) Description 07/28/2025 9:30 AM EST Office Visit [facility] [address] [place] [phone] Marga Rene ANP [address] [place] [address] documented as of this encounter Visit Diagnoses Diagnosis Acute bilateral low back pain without sciatica documented in this encounter Additional Health Concerns Assessment Noted Time PHQ-9 Depression Total Score: 2 08/14/20 23 9:05 AM EST documented as of this encounter Care Teams Solar Installation Technician Relationship Specialty Start Date End Date Marga Rene ANP [address] [place] [phone] PCP - General Family Medicine 05/15/21 documented as of this encounter
--- OUTSIDE RECORDS SUMMARY | 2025-06-14 16:31 | XMS_ITS ---
Author Organization [employer] Address [address] [facility] 7 [place] [address] Care Team Providers Care Paper Cone Grader Name Role Phone Marga Rene Primary Care Provider [phone] CHW Complex Status:Outreach In Progress (Enrolling) Start date:12/14/2024 Enrollment reason:ADT Feed Overview ED- Pt went to [facility] ED on 12/13/24. Please outreach for enrollment. Case Team Name Relationship Phone Louisa Guillen(Responsible Staff) [phone] Continued Care and Services Coordination
--- OUTSIDE RECORDS SUMMARY | 2025-06-14 16:31 | XMS_ITS | Clinical Summary ---
Author Organization [employer] Address [address] [facility] 7t [place] [address] Care Team Providers Care Customer Logistics Manager Name Role Phone Anju Marga COVARRUBIAS Primary Care Provider [phone] Allergies No known active allergies Medications medroxyPROGEST [...] 30 g 1 09/29/19 25 026 Active docusate sodium (Colace) 100 MG capsule Take 1 capsule (100 mg) by mouth if needed in the morning and at bedtime for constipation. 60 capsule 05/25/20 026 Active senna (Senokot) 8.6 MG tablet Take 2 tablets (17.2 mg) by mouth at bedtime. 60 tablet 05/25/20 025 Active polyethylene glycol, PEG, 3350 (MiraLax) 17 GM/SCOOP powder Take 17 g by mouth Once per day for 7 days. 119 g 05/25/20 025 Active Problems Problem Noted Date Diagnosed Date [...] Labs to be ordered Vaccinations agreed to Lilly and belia ALCARAZ today here in the clinic. Will obtain [...] Encounters Date Type Department Care Team Description 06/14/2025 Orders Only GENERIC EXTERNAL DATA DEPARTMENT Provider, Generic External Data 05/25/2025 10:00 AM EDT Office Visit [facility] [address] [address] Abhijeet Quevedo MD Left lower quadrant abdominal pain (Primary Dx) 05/25/2025 Travel from Last 3 Months Immunizations Immunization Administration Dates Next Due DTaP 03/03/1998, 7,06/02/1997,03/30 [...] Sign Reading Time Taken Comments Blood Pressure 112/70 05/25/2025 10:22 AM EDT Pulse 73 05/25/2025 10:22 AM EDT Temperature 36.7 C (98.1 F) 05/25/2025 10:22 AM EDT Respiratory Rate 18 05/25/2025 10:22 AM EDT Oxygen Saturation 98% 05/25/2025 10:22 AM EDT Inhaled Oxygen Concentration - - Weight 65.8 kg (145 lb) 05/25/2025 10:22 AM EDT Height 157.5 cm (5' 2 ) 05/25/2024 9:47 AM EDT Body Mass Index 26.52 05/25/2024 9:47 AM EDT Plan of Treatment Upcoming Encounters Date Type Department Care Team (Late st Contact Info) Description 07/28/2025 9:30 AM EST Office Visit [facility] [address] [place], [place] [phone] Marga Rene, ANP [address] [place] [address] Health Maintenance Due Date Last Done Comments HIV Screening 1996 Disability Screening 1996 Alcohol/Substance Use Screening 2008 Family Planning (PISQ) 2011 Depression Screening 08/14/2024 08/14/2023, 08/14/20 23 SDOH Screening 08/14/2024 08/14/2023 COVID-19 Vaccine ( season) 2025 08/14/2023, 08/06/2021, 11/27/2020, Additional history exists Influenza Vaccine (#1) 2025 , 05/19/2014, 07/04/2011, Additional history exists Tobacco Screening 05/25/2026 05/25/2025 Pap Smear 03/08/2027 03/08/2024, 10/27/2020 DTaP/Tdap/Td Vaccines [...] Additional history exists HPV Vaccines Completed 01/02/2010, 04/0 04/2009, 09/15/2007 Meningococcal Vaccine Completed 02/18/2013, 008 Hepatitis C Screening Completed 10/14/2023, 023 Hepatitis A Vaccines Aged Out No long er eligible based on patient's age to complete this topic Meningococcal B Vaccine Aged Out No l onger eligible based on patient's age to complete this topic Pneumococcal Vaccine: Pediatrics (0 to 5 Years) and At-Risk Patients (6 to 49) Years Aged Out No longer eligible based on patient's age to complete this topic RSV under 20 months Aged Out No longe r eligible based on patient's age to complete this topic Rotavirus Vaccines Aged Out No longer eligible based on patient's age to complete this topic Procedures Procedure Name Priority Date/Time Associated Diagnosis Comments BACTERIAL VAGINOSIS PANEL Routine 06/14/2025 12:52 PM EDT POCT , URINE Routine 05/25/2025 12:40 PM EDT Left lower quadrant abdominal pain POCT URINALYSIS DIPSTICK Routine 05/25/2025 12:40 PM EDT Left lower quadrant abdominal pain THINPREP IMAGING PAP REFL HPV MRNA(IF ASCUS,ASC-H,LSIL) Routine 03/08/2024 2:47 PM EDT HEPATITIS PANEL, GENERAL Routine 10/14/2023 2:23 PM EST from Last 3 Months or Most Recently Relevant to Health Maintenance Results * (ABNORMAL) Bacterial Vaginosis (06/14/2025 12:52 PM EDT) TRICHOMONAS VAGINALIS DETECTION BY PCR NOT DETECTED Not Detect [facility] BACTERIAL VAGINOSIS DETECTION BY PCR POSITIVE(A) Negative [facility] Comment:The BV organism targ ets of the Xpert Xpress MVP test can becommensal in women; Xpert Xpress MVP positive results forbacterial vaginosis should be considered in conjunction withother clinical and patient information to determine thedisease status. Organisms that are not detected by the XpertXpress MVP test have also been reported to be associatedwith BV and aerobic vaginitis.The Xpert Xpress MVP test performance has not been evaluatedin patients under the age of 14. CHEY GROUP DETECTION BY PCR NOT DETECTED Not Detect [facility] Chey glab krusei PCR NOT DETECTED Not Detect [facility] 06/14/2025 12:5 2 PM EDT 06/14/2025 3:19 PM EDT [employer] [facility] External Data Provider LAB MICROBIOLOGY - GENERAL ORDERABLES Final Result [facility] [address] [place] [phone] * POCT , urine manually resulted (05/25/2025 12:40 PM EDT) Preg Test, Ur Negative Negative, Indeterminate, None Detected, Invalid, Specimen unsatisfactory for evaluation, Weakly Positive, 2+ Urine 05/25/2025 12:4 0 PM EDT Abhijeet Quevedo MD POINT OF CARE TEST ENTER/EDIT OR DERABLES Final Result * POCT urinalysis dipstick manually resulted (05/25/2025 12:40 PM EDT) Color, UA Yellow Clarity, UA Clear Glucose, UA Negative Bilirubin, UA Negative Ketones, UA Negative Spec Grav, UA 1.025 Blood, UA Negative Negative, None Detected pH, UA 6.5 Protein, UA Negative Urobilinogen, UA 1.0 Leukocytes, UA Trace Negative, Rare, Trace Urine 05/25/2025 12:4 0 PM EDT Abhijeet Quevedo MD POINT OF CARE TEST ENTER/EDIT OR DERABLES Final Result * ThinPrep?? Imaging Pap Refl HPV mRNA(if ASCUS,ASC-H,LSIL,HSIL,CHRIS)Refl Genotype (03/08/2024 2:47 PM EDT) HPV nRNA E6/E7 [facility] HPV 16,18/45 [facility] SOURCE: SEE NOTE [facility] Comment:None given Report Status: [facility] Clinical Information: SEE NOTE [facility] Comment:None given LMP: SEE NOTE [facility] Comment:NONE GIVEN Prev. PAP: SEE NOTE [facility] Comment:NONE GIVEN Prev. BX: SEE NOTE [facility] Comment:NONE GIVEN Statement Of Adequacy: SEE NOTE [facility] Comment:Satisfactory for laureen luation.Endocervical/transformation zone component absent. General Categorization: [facility] Interpretation/Result: SEE NOTE [facility] Comment:Cytology Results: Ne gative for intraepitheliallesion or malignancy. Cytology Comment SEE NOTE [facility] Comment:This Pap test has be en evaluated with computerassisted technology. Steward/Stewardess Wine: SEE NOTE [facility] Comment:[facility], CT (ASCP)CT Scr eening Location: [facility] [employer] [address] [address]Gnlty preparation performed at: [facility], [address] [place] [id number] No. [id number] Review Steward/Stewardess Wine: [facility] Pathologist [facility] PAP Infection [facility] See Note SEE NOTE [facility] Comment:EXPLANATORY NOTE:The Pap is a screening test for cervical cancer. It isnot a diagnostic test and is subject to false negativeand false positive results. It is most reliable when asatisfactory sample, regularly obtained, is submittedwith relevant clinical findings and history, and whenthe Pap result is evaluated along with historic andcurrent clinical information.THIS TEST WAS PERFORMED AT:[employer] [address] [id number] MERATI,MD 03/08/2024 2:47 PM EDT 03/09/2024 3:23 PM EDT Narrative [facility] - 03/16/2024 6:57 PM EDT SEE SCANNED RESULTS IN EMR Generic External Data Provider LAB CYTOLOGY ORDE RABLES Final Result Performing Organization Address [facility] Co de Phone Number [facility] [address] [place] [phone] * Hepatitis Panel, General (10/14/2023 2:23 PM EST) Hepatitis A IgM Nonreactive Nonreactive [facility] Comment:IgM antibodies to JIN V not detected; does not exclude earlyacute or recovered HAV infection. ~Hepatitis B Surface Antibody NONREACTIVE Nonreactive [facility] Comment:Nonreactive: < 8.00 mIU/mL Hepatitis B Core Antibody Nonreactive Nonreactive [facility] Hepatitis C Antibody Nonreactive Nonreactive [facility] Comment:Antibodies to HCV no t detected; does not exclude early acuteHCV infection. Hepatitis B Surface Ag Negative Negative [facility] 10/14/2023 2:23 PM EST 10/14/2023 2:23 PM EST Generic External Data Provider LAB BLOOD ORDERAB LES Final Result Performing Organization Address [facility]/ZIP Co de Phone Number [facility] [address] [place] [phone] from Last 3 Months or Most Recently Relevant to Health Maintenance Insurance [facility] , [address] [place] [address] Care Teams Customer Logistics Manager Relationship Specialty Start Date End Date Marga Rene ANP [address] [place] [phone] PCP - General Family Medicine 05/15/21
--- OUTSIDE RECORDS SUMMARY | 2025-06-14 16:31 | XMS_ITS | Encounter Summary ---
Author Organization [employer] Address [address] [facility] [place] [facility] [address] [place] [address] Care Team Providers Care Facility Assistant Name Role Phone Anju Marga COVARRUBIAS Primary Care Provider [phone] Encounter Details Date Type Department Care Team (Late st Contact Info) Description 06/14/2025 Orders Only GENERIC EXTERNAL DATA DEPARTMENT Provider, Generic External Data Social History Tobacco Use Types Packs/Day Years [...] Description 07/28/2025 9:30 AM EST Office Visit [facility] [address] [place], [place] [phone] Marga Rene ANP [address] [place] [address] documented as of this encounter Procedures Procedure Name Priority Date/Time Associated Diagnosis Comments BACTERIAL VAGINOSIS PANEL Routine 06/14/2025 12:52 PM EDT documented in this encounter Results * (ABNORMAL) Bacterial Vaginosis (06/14/2025 12:52 PM EDT) TRICHOMONAS VAGINALIS DETECTION BY PCR NOT DETECTED Not Detect [facility] BACTERIAL VAGINOSIS DETECTION BY PCR POSITIVE(A) Negative [facility] Comment:The BV organism targ ets [...] DETECTION BY PCR NOT DETECTED Not Detect [facility] Chey glab krusei PCR NOT DETECTED Not Detect [facility] 06/14/2025 12:5 2 PM EDT 06/14/2025 3:19 PM EDT us Generic External Data Provider LAB MICROBIOLOGY - GENERAL ORDERABLES Final Result [facility] [address] [place] [phone] documented in this encounter Visit Diagnoses Not on filedocumented in this encounter Additional Health Concerns Assessment Noted Time PHQ-9 Depression Total Score: 2 08/14/20 23 9:05 AM EST documented as of this encounter Care Teams Facility Assistant Relationship Specialty Start Date End Date Marga Rene ANP [address] [place] [address] PCP - General Family Medicine 05/15/21 documented as of this encounter
--- OUTSIDE RECORDS SUMMARY | 2025-06-14 16:31 | XMS_ITS ---
Author Organization [employer] Address [address] [facility] 7 [place] [address] Care Team Providers Care Engineering Teacher Name Role Phone Marga Rene Primary Care Provider [phone] CM Complex Status:Outreach In Progress (Enrolling) Start date:12/14/2024 Enrollment reason:ADT Feed Overview ED- Pt went to [facility] ED on 12/13/24. Case Team Name Relationship Phone Foster Dominguez RN(Responsible Staff) Registered Nurse [phone] Continued Care and Services Coordination
== END 2025-06-14 13:59 | disposition home or self-care (01) ==
LOC: HO.HWS 12:53
PROVIDERS: PCP Nurse Practitioner Primary Care; Visit Provider Advanced Practice Midwife
DX: R10.20 Pelvic and perineal pain unspecified side (principal)
CPT/HCPCS: 99213

== ENCOUNTER 2025-06-14 12:52 | Outpatient (REF) | payer OTHER, MEDICAID, SELFPAY ==
[2025-06-14 16:22] LABS: Bacterial Vaginosis PCR POSITIVE (Negative); Candida Group PCR NOT DETECTED (Not Detect); Candida glab krusei PCR NOT DETECTED (Not Detect); Trichomonas vaginalis PCR NOT DETECTED (Not Detect)
[2025-06-14 16:55] LABS: CT PCR NOT DETECTED (Not Detect.); NG PCR NOT DETECTED (Not Detect.)
== END 2025-06-14 12:53 | disposition home or self-care (01) ==
LOC: HO.LAB 12:52
PROVIDERS: PCP Nurse Practitioner Primary Care; Visit Provider Advanced Practice Midwife
DX: N89.8 Other specified noninflammatory disorders of vagina (principal); R10.20 Pelvic and perineal pain unspecified side; Z20.2 Contact with and (suspected) exposure to infections with a predominantly sexual mode of transmission
CPT/HCPCS: 81003; 81515; 87491; 87591

== ENCOUNTER 2025-06-14 13:41 | Outpatient (REF) | payer OTHER, MEDICAID, SELFPAY | END 2025-06-14 13:42 | disposition home or self-care (01) | LOC: HO.LNP 13:41 | PROVIDERS: Visit Provider Advanced Practice Midwife | DX: Z13.89 Encounter for screening for other disorder (principal) ==

== ENCOUNTER 2025-06-14 14:14 | Outpatient (REF) | payer OTHER, SELFPAY ==
--- NOTE | ~2025-06-14 | US_ITS ---
CLINICAL HISTORY: R10.2 - Pelvic and perineal pain Ultrasound pelvis transabdominal and transvaginal. COMPARISON: None provided. Technique: Real time sonographic imaging, including color-flow imaging, was performed by the rn correctional. Multiple claim representative static images were saved for review. FINDINGS: Anteverted uterus appears normal andmeasures 7.9 x 3.4 x 4.2 cm. No uterine fibroids identified. Endometrium: 2 mm, normal. Small amount of fluid present within the endometrial canal. IUD present within the endometrial canal in the uterine body. Right ovary appears normal and measures 3.0 x 1.7 x 1.6 cm. Normal color Doppler. No right adnexal mass identified. Left ovary appears normal and measures 2.0 x 1.4 x 1.1 cm. Normal color Doppler. No left adnexal mass identified. IMPRESSION: 1. No acute findings. No evidence of ovarian torsion. 2. IUD appears appropriately positioned within the endometrial canal in the uterine body. This document has been electronically signed by: Juanito Salgado MD on 06/15/2025 14:48:23
== END 2025-06-14 14:15 | disposition home or self-care (01) ==
LOC: HO.US 14:14
PROVIDERS: Visit Provider Advanced Practice Midwife
DX: R10.23 Pelvic and perineal pain bilateral (principal)
CPT/HCPCS: 76830; 76856

== ENCOUNTER → 2025-06-14 14:19 | Outpatient (BNV) | payer OTHER, SELFPAY | PROVIDERS: Visit Provider Radiology Diagnostic Radiology | DX: R10.20 Pelvic and perineal pain unspecified side (principal); Z97.5 Presence of (intrauterine) contraceptive device | CPT/HCPCS: 76830; 76856 ==

== ENCOUNTER 2025-06-22 08:56 | Outpatient (AMB) | payer OTHER, MEDICAID, SELFPAY ==
--- NOTE | 2025-06-22 09:07 | A.OFFVIS_ITS ---
Intake Visit Reasons: Ultrasound follow up/? 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 She denies any contraindications to control such as: migraines with aura, history of DVT or pulmonary emboli, high blood pressure, liver disease, thrombolic disorders, Lupus, +LIT, breast cancer, or smoking. Admits to history of migraines that worsened when she is on control, seen by her PCP for migraine treatment [facility] Medical History (Updated 06/22/25 @ 16:47 by Brianne Samson CNM) Hx of migraine headaches Hypovitaminosis D Elevated sed rate Bilateral knee pain Bilateral hand pain Depression Seasonal allergies Surgical History No history of previous surgery Family History Mother Breast cyst Arthritis Maternal Grandmother Breast cancer Arthritis Maternal Aunt Uterine cancer Maternal Grandfather Arthritis Sister Arthritis Paternal Grandfather Arthritis Paternal Grandmother Arthritis Social History Household Members: Children Housing: Apartment Alcohol intake: never Patient Tobacco Use Status: Never used Tobacco Current occupational status: employed 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 Sexual orientation: Straight/Heterosexual Gender identity: Female Female Reproductive History Menstrual Age of Menarche: 15 Review of Systems Const All systems reviewed & are unremarkable except as noted in HPI and below Physical Exam Const General: cooperative, healthy appearing and no acute distress Orientation/consciousness: patient oriented x3 GI Inspection: Yes normal to inspection Palpation (GI): Soft to palpation and Other GI palpation findings present (Nontender) Rectal Exam - Female: visual inspection normal General: Yes bladder normal to palpation External Female Exam: normal appearance of the urethra Speculum Exam - Vagina: normal appearance of the vagina, normal palpation and normal vaginal discharge Speculum Exam - Cervix: normal appearance of the cervix, normal palpation and Other cervical findings present (IUD strings at the os) Bimanual exam- vagina & uterus: normal bimanual exam, normal palpation, uterine size normal, bladder normal to palpation, normal palpation, uterine shape normal and non-tender Bimanual Exam- Adnexa, other: normal adnexae Neuro General: patient oriented x3 Office Procedures IUD Insert/Removal Details Details: The patient presents today for a IUD removal. ?She is planning to start control pills. She was counseled regarding the removal of her IUD. She was consented for the procedure along with anticipatory guidance for the removal and the consents form was signed. She desires to proceed with the IUD removal. IUD Removal Procedure: The patient was placed in the dorsal lithotomy position. A speculum was inserted vaginally and the cervix and strings were visualized at the os. A ring forcep was utilized, and the patient was asked to give a deep cough while the strings were grasped and gently tugged at the same time, removing the IUD device intact. Minimal bleeding was observed. All of the equipment was removed. The patient tolerated the procedure well and left the office in good condition. IUD Removal Information: You may have light bleeding for several days, tapering off to a brown or pink color. Mild cramping after removal is common. If not allergic, you may take an over the counter mild analgesic for the discomfort, such as Tylenol or Advil (use dosing and frequency per the manufacturers recommendations). Call the office if you experience: fever (over 100.4), flu like symptoms, abdominal or pelvic pain, foul smelling discharge or heavy bleeding. If not planning for a future , another form of control is recommended. Use of condoms for prevention of STI's is also recommended, if indicated. This note is constructed using voice recognition software. ?While every effort has been made to ensure accuracy, track superintendent errors may have been included. ? 28184-HVM Removal Procedure code (CPT) selection complete Results AMB Test Urine AMB Test Urine Negative Last Edit by THEODORE Aaron on 06/22/25 09:43 Results Reviewed Results Reviewed: Laboratory Last Values [facility]st Clinic Negative 06/22/25 09:[address] [address] Ultrasound Report Signed Patient: Tom Guillen MR#: [id number] : 1995 Acct:[id number] Age/Sex: 29 / F ADM Date: 06/14/25 Loc: HO.US Attending Dr: Brianne Samson CNM Ordering Physician: Brianne Samson CNM Date of Service: 06/14/25 Procedure(s): US pelvic and transvaginal Accession Number(s): [id number] cc: Brianne Samson CNM~ Reason for Exam: R10.2 - Pelvic and perineal pain CLINICAL HISTORY: R10.2 - Pelvic and perineal pain Ultrasound pelvis transabdominal and transvaginal. COMPARISON: None provided. Technique: Real time sonographic imaging, including color-flow imaging, was performed by the health analyst. Multiple professional healthcare representative static images were saved for review. FINDINGS: Anteverted uterus appears normal andmeasures 7.9 x 3.4 x 4.2 cm. No uterine fibroids identified. Endometrium: 2 mm, normal. Small amount of fluid present within the endometrial canal. IUD present within the endometrial canal in the uterine body. Right ovary appears normal and measures 3.0 x 1.7 x 1.6 cm. Normal color Doppler. No right adnexal mass identified. Left ovary appears normal and measures 2.0 x 1.4 x 1.1 cm. Normal color Doppler. No left adnexal mass identified. IMPRESSION: 1. No acute findings. No evidence of ovarian torsion. 2. IUD appears appropriately positioned within the endometrial canal in the uterine body. This document has been electronically signed by: Juanito Salgado MD on 06/15/2025 14:48:23 Dictated By: Juanito Salgado MD Signed By: <Electronically signed by Juanito Salgado MD in OV> 06/15/25 1449 DD/ 1448 TD/TT: 06/15/25 1448 Senior Data Architect: Assessment & Plan Assessment & Plan (1) Migraine without aura: Code(s): G43.009 - Migraine without aura, not intractable, without status migrainosus Category: Medical Qualifiers: Intractability: not intractable Plan: Discussed using a barrier method x3 methods, for 4-6 weeks while assessing for headache triggers and patterns. Migraine information provided with a tool kit and chart. Advised to start her control pills in the 1st 5 days of her menstrual cycle. Use, side effects and control hormone use warnings: go to ER if and loss of vision, blindness, severe headache, chest pain or difficulty breathing, severe abdominal pain, or any pain or swelling in an extremity all discussed in detail. The patient expressed understanding and agreement with the plan of care. All of her questions and concerns were addressed to the best of my ability. Patient left the department before her blood pressure was taken. Baselines are in normal ranges. Pill check within 3 months. This note is constructed using voice recognition software. While every effort has been made to ensure accuracy, track superintendent errors may have been included. Total time I personally spent on visit and management today: ?20 minutes. Time spent included review of pertinent office notes in the electronic health record; review of laboratory and imaging results; review of personal family medical history; performing physical exam; discussing diagnosis and plan of care with the patient; documenting the encounter in the EMR. (2) Encounter for IUD removal: Code(s): Z30.432 - Encounter for removal of intrauterine contraceptive device Plan: IUD removal completed today. See procedure notes. Plan This note is constructed using voice recognition software. While every effort has been made to ensure accuracy, track superintendent errors may have been included. Orders: Orders AMB HCG Urine Test Today Z32.02 - Encounter for test, result negative Medications: New levonorgestrel-ethinyl estrad 0.15 mg-30 mcg (91) (Jolessa) 1 tab PO DAILY 91 ea 0RF Coding Level of Care Code Est Pt Level 2 (09618) Procedure Only Diagnoses Migraine without aura G43.009 Intractability: not intractable Encounter for IUD removal Z30.432 CPT Codes Details - CPT: 07844-AYJ Removal ([id number])
--- OUTSIDE RECORDS SUMMARY | 2025-06-22 09:54 | XMS_ITS | Encounter Summary ---
Author Organization [employer] Address [address] [place] [address] Care Team Providers Care School Transportation Supervisor Name Role Phone Rene Marga COVARRUBIAS Primary Care Provider [phone] Reason for Visit * Reason Comments Med Change Request Encounter Details Date Type Department Care Team ([facility] st Contact Info) Description 09/28/2024 Refill [facility] [address] [place], [place] [phone] Christina Draper MD [address] [place], [place] [phone] Acute bilateral low back pain without sciatica [...] Description 07/28/2025 9:30 AM EST Office Visit [facility] [address] [place] [phone] Marga Rene ANP [address] [place] [address] documented as of this encounter Visit Diagnoses Diagnosis Acute bilateral low back pain without sciatica documented in this encounter Additional Health Concerns Assessment Noted Time PHQ-9 Depression Total Score: 2 08/14/20 23 9:05 AM EST documented as of this encounter Care Teams School Transportation Supervisor Relationship Specialty Start Date End Date Marga Rene ANP [address] [place] [phone] PCP - General Family Medicine 05/15/21 documented as of this encounter
--- OUTSIDE RECORDS SUMMARY | 2025-06-22 09:54 | XMS_ITS ---
Author Organization [employer] Address [address] [facility] [address] 7 [place] [address] Care Team Providers Care Caseworker Intake Name Role Phone Marga Rene Primary Care Provider [phone] Complex Status:Outreach In Progress (Enrolling) Start date:12/14/2024 Enrollment reason:ADT Feed Overview ED- Pt went to [facility] on 12/13/24. Case Team Name Relationship Phone Foster Dominguez RN(Responsible Staff) Registered Nurse [phone] Continued Care and Services Coordination
--- OUTSIDE RECORDS SUMMARY | 2025-06-22 09:54 | XMS_ITS | Clinical Summary ---
Author Organization [employer] Address [address] [facility] [address] [place] [address] Care Team Providers Care Livestock Laborer Name Role Phone Anju Marga COVARRUBIAS Primary Care Provider [phone] Allergies No known active allergies Medications medroxyPROGEST [...] Data 05/25/2025 10:00 AM EDT Office Visit [facility] [address] [address] Abhijeet Quevedo MD Left lower quadrant abdominal [...] 07/28/2025 9:30 AM EST Office Visit [facility] [address] [place], [place] [phone] Marga Rene, ANP [address] [place] [address] Health Maintenance Due Date Last Done Comments [...] Procedure Name Priority Date/Time Associated Diagnosis Comments CHLAMYDIA/N. GONORRHOEAE RNA, TMA, UROGENITAL Routine 06/14/2025 12:52 PM EDT BACTERIAL VAGINOSIS PANEL Routine 06/14/2025 12:52 PM [...] DETECTION BY PCR NOT DETECTED Not Detect [facility] BACTERIAL VAGINOSIS DETECTION BY PCR POSITIVE(A) Negative [facility] Comment:The BV organism targ ets of [...] DETECTION BY PCR NOT DETECTED Not Detect [facility] Chey glab krusei PCR NOT DETECTED Not Detect [facility] 06/14/2025 12:5 2 PM EDT 06/14/2025 3:19 PM EDT us Generic External Data Provider LAB MICROBIOLOGY - GENERAL ORDERABLES Final Result [facility] [address] [place] [phone] * Chlamydia/N. Gonorrhoeae RNA, TMA, Urogenitial (06/14/2025 12:52 PM EDT) CT PCR NOT DETECTED Not Detect. [facility] Comment:A not detected test result does not exclude the possibilityof infection because test results can be affected byimproper specimen collection, concurrent antibiotic therapy,or the number of organisms in the specimen which may bebelow the sensitivity of the test. As with many diagnostictests, results from the Xpert CT/NG assay should beinterpreted in conjunction with other laboratory andclinical data available to the clinician.Xpert CT/NG performance has not been evaluated in patientsless than 14 years of age. The assay should not be used forthe evaluationof suspected sexual abuse or for other medico-legalindications. Additional testing is recommended in anycircumstance when false positive or false negative resultscould lead to adverse medical, social or psychologicalconsequences. NG PCR NOT DETECTED Not Detect. [facility] Comment:A not detected test result does not exclude the possibilityof infection because test results can be affected byimproper specimen collection, concurrent antibiotic therapy,or the number of organisms in the specimen which may bebelow the sensitivity of the test. As with many diagnostictests, results from the Xpert CT/NG assay should beinterpreted in conjunction with other laboratory andclinical data available to the clinician.Xpert CT/NG performance has not been evaluated in patientsless than 14 years of age. The assay should not be used forthe evaluationof suspected sexual abuse or for other medico-legalindications. Additional testing is recommended in anycircumstance when false positive or false negative resultscould lead to adverse medical, social or psychologicalconsequences. 06/14/2025 12:5 2 PM EDT 06/14/2025 3:19 PM EDT Generic External Data Provider LAB MICROBIOLOGY - GENERAL ORDERABLES Final Result [facility] [address] [place] [phone] * POCT , urine manually resulted [...] (03/08/2024 2:47 PM EDT) HPV nRNA E6/E7 [facility] HPV 16,18/45 [facility] SOURCE: SEE NOTE [facility] Comment:None given Report Status: [facility] Clinical Information: SEE NOTE [facility] Comment:None given LMP: SEE NOTE [facility] Comment:NONE GIVEN Prev. PAP: SEE NOTE [facility] Comment:NONE GIVEN Prev. BX: SEE NOTE [facility] Comment:NONE GIVEN Statement Of Adequacy: SEE NOTE [facility] Comment:Satisfactory for laureen luation.Endocervical/transformation zone component absent. General Categorization: [facility] Interpretation/Result: SEE NOTE [facility] Comment:Cytology Results: Ne gative for intraepitheliallesion or malignancy. Cytology Comment SEE NOTE [facility] Comment:This Pap test has be en evaluated with computerassisted technology. Portfolio Assistant: SEE NOTE [facility] Comment:[facility], CT (ASCP)CT Scr eening Location: [employer] [address] [address]Srstj preparation performed at: [facility], [address] [place] [id number] No. [id number] Review Portfolio Assistant: [facility] Pathologist [facility] PAP Infection [facility] See Note SEE [facility] Comment:EXPLANATORY NOTE:The Pap is a screening test for cervical cancer. It isnot a diagnostic test and is subject to false negativeand false positive results. It is most reliable when asatisfactory sample, regularly obtained, is submittedwith relevant clinical findings and history, and whenthe Pap result is evaluated along with historic andcurrent clinical information.THIS TEST WAS PERFORMED AT:[facility] [address] [id number] MERATI,[place] 03/08/2024 2:47 PM EDT 03/09/2024 3:23 PM EDT Narrative [facility] - 03/16/2024 6:57 PM EDT SEE SCANNED RESULTS IN EMR Generic External Data Provider LAB CYTOLOGY ORDE RABLES Final Result Performing Organization Address [facility] Co de Phone Number [facility] [address] [place] [phone] Hepatitis Panel, General (10/14/2023 2:23 PM EST) Hepatitis A IgM Nonreactive Nonreactive [facility] Comment:IgM antibodies to JIN V not detected; does not exclude earlyacute or recovered HAV infection. ~Hepatitis B Surface Antibody NONREACTIVE Nonreactive [facility] Comment:Nonreactive: < 8.00 mIU/mL Hepatitis B Core Antibody Nonreactive Nonreactive [facility] Hepatitis C Antibody Nonreactive Nonreactive [facility] Comment:Antibodies to HCV no t detected; does not exclude early acuteHCV infection. Hepatitis B Surface Ag Negative Negative [facility] 10/14/2023 2:23 PM EST 10/14/2023 2:23 PM EST us Generic External Data Provider LAB BLOOD ORDERAB LES Final Result Performing Organization Address [facility] Co de Phone Number [facility] [address] [place] [phone] from Last 3 Months or Most Recently Relevant to Health Maintenance Insurance [facility] Care Teams Livestock Laborer Relationship Specialty Start Date End Date Marga Rene ANP [address] [place] [phone] PCP - General Family Medicine 05/15/21
--- OUTSIDE RECORDS SUMMARY | 2025-06-22 09:54 | XMS_ITS ---
Author Organization [employer] Address [address] [facility] 7 [place] [address] Care Team Providers Care Sustainability Engineer Name Role Phone Marga Rene Primary Care Provider [phone] CHW Complex Status:Outreach In Progress (Enrolling) Start date:12/14/2024 Enrollment reason:ADT Feed Overview ED- Pt went to [facility] [place] [place] [facility] on 12/13/24. Please outreach for enrollment. Case Team Name Relationship Phone Louisa Guillen(Responsible Staff) [phone] Continued Care and Services Coordination
--- OUTSIDE RECORDS SUMMARY | 2025-06-22 09:54 | XMS_ITS | Encounter Summary ---
Author Organization [employer] Address [address] [facility] [address] [place] [address] Care Team Providers Care Manager Of School Name Role Phone Marga Rene Primary Care Provider [phone] Encounter Details Date Type Department Care Team (Latest Contact Info) Description 10/29/2021 Abstract [facility] CONVERSIONS Dental, Provider, DDS Social History Tobacco [...] Description 07/28/2025 9:30 AM EST Office Visit [facility] [address] [place] [address] Marga Rene ANP [address] [place] [address] documented as of this encounter Visit Diagnoses Not on filedocumented in this encounter Care Teams Manager Of School Relationship Specialty Start Date End Date Marga Rene ANP [address] [place] [address] PCP - General Family Medicine 05/15/21 documented as of this encounter
== END 2025-06-22 10:07 | disposition home or self-care (01) ==
LOC: HO.HWS 08:56
PROVIDERS: Visit Provider Advanced Practice Midwife
DX: G43.009 Migraine without aura, not intractable, without status migrainosus (principal); Z30.432 Encounter for removal of intrauterine contraceptive device; Z32.02 Encounter for pregnancy test, result negative
CPT/HCPCS: 58301

== ENCOUNTER → 2025-06-22 08:56 | Outpatient (BNVA) | payer OTHER, MEDICAID, SELFPAY | PROVIDERS: Visit Provider Advanced Practice Midwife | DX: Z30.432 Encounter for removal of intrauterine contraceptive device (principal); G43.009 Migraine without aura, not intractable, without status migrainosus; R10.9 Unspecified abdominal pain; Z32.02 Encounter for pregnancy test, result negative | CPT/HCPCS: 58301; 81025 ==